=== PATIENT | female | born 1930 | race Caucasian/White ===

== ENCOUNTER 2017-07-26 17:30 | Inpatient (IN) | payer MEDICARE, OTHER ==
[2017-07-26] MEDS ORDERED: Ondansetron 4 MG/2 ML SDV IV PRN (19:58)
[2017-07-26] MEDS ORDERED: Morphine 2 MG/ML Syringe IVPUSH PRN (19:58)
[2017-07-26] MEDS ORDERED: Docusate Sodium 100 MG Cap PO PRN (19:58)
[2017-07-26] MEDS ORDERED: Ondansetron 4 MG Tab.DIS PO PRN (19:58)
[2017-07-26] MEDS ORDERED: Non-Formulary Medication 1 Each (Polyvinyl Alcohol/Povidone [Refresh] 1 DROP) EYEBOTH PRN (20:15)
[2017-07-26] MEDS ORDERED: Albuterol 8 GM Inhaler INH PRN (20:15)
[2017-07-26] MEDS: Sodium Chloride 0.9% 1,000 ML IV SCH (21:03)
[2017-07-26] MEDS: Temazepam 7.5 MG Cap PO SCH (21:08)
[2017-07-26] MEDS ORDERED: Latanoprost 0.005% Ophth Soln 2.5 ML Bottle EYEBOTH SCH (22:30)
[2017-07-27] MEDS ORDERED: Polyvinyl Alcohol 1.4% Ophth Soln 15 ML Bottle EYEBOTH PRN ×2 (01:07→07:26)
[2017-07-27] MEDS: Sodium Chloride 0.9% 1,000 ML IV SCH ×2 (06:36→16:28)
[2017-07-27] MEDS ORDERED: Levothyroxine 75 MCG Tab PO SCH (07:30)
[2017-07-27] MEDS: Calcium Carbonate/Vitamin D3 1250 MG-200 Unit Tab PO SCH ×2 (07:54→17:40)
[2017-07-27] MEDS: Loratadine 10 MG Tab PO SCH (07:54)
[2017-07-27] MEDS: Fluticasone Propionate Nasal Spray 16 GM Bottle NASBOTH SCH (08:00)
[2017-07-27] MEDS: Raloxifene 60 MG Tab PO SCH (08:00)
[2017-07-27] MEDS: Cyanocobalamin (Vitamin B12) 500 MCG Tab PO SCH (08:02)
[2017-07-27] MEDS: Multivitamin Tab PO SCH (08:03)
[2017-07-27] MEDS: ALPRAZolam 0.5 MG Tab PO SCH (08:10)
[2017-07-27] MEDS ORDERED: Atenolol 25 MG Tab PO SCH (09:00)
--- NOTE | 2017-07-27 09:32 | CT ---
INDICATION: Falling - fell twice this week, 6 stitches a couple of days ago mid forehead, loss of consciousness. CT HEAD WITHOUT CONTRAST: Serial contiguous 2.5 and 5-mm sections were obtained through the brain without contrast 07/26/2017. No comparisons were available. Total Exam DLP = 1691.62 mGy-cm. The cranium appears to be intact. The mastoid air cells appear to be fairly well aerated. Thickening of the lining of the right maxillary antrum is noted. Evidence of previous sinus surgery is noted with absence of medial calix of the maxillary antra. There also is opacification of the right sphenoidal air cell, which may be on the basis of a large retention cyst. Sinusitis is difficult to entirely exclude with this appearance, but should be correlated clinically. No shift of midline structures was identified. The ventricles and sulci are prominent, compatible with generalized atrophy. The cortical atrophy appears to be somewhat more severe in the frontotemporal areas. There is some calcification in the area of the marly - bleeding is felt to be less likely with this appearance. This should be correlated clinically. No edema is noted in this area to strongly suggest hemorrhage. Findings should be correlated clinically. MRI may be worthwhile to further evaluate this area, as felt to be clinically necessary. There is extensive decreased density in the white matter, compatible with moderately severe microvascular disease, although other cause of leukoencephalopathy, such as anoxic encephalopathy, cannot be excluded. No other definite abnormal areas of density were identified. No hematoma was seen. IMPRESSION: 1. No definite acute intracranial abnormality. There is what appears to be some calcification in the marly. MRI may be worthwhile to further evaluate that area, as a minimal acute hemorrhage in that area is difficult to entirely exclude. 2. Generalized atrophy with cortical atrophy more severe frontally and to some extent temporally. 3. Arterial calcifications with internal carotid and vertebral artery calcifications noted. 4. Moderately severe white matter changes compatible with microvascular disease , although other cause of leukoencephalopathy cannot be excluded. 5. Post-surgical changes at the maxillary sinuses with thickening of the lining of the right maxillary antrum and opacification of the right sphenoidal air cells also noted - correlate clinically. Report was called to Dr. Luz at 1910 hours, 07/26/2017. [facility]
[2017-07-27] MEDS: Enoxaparin 60 MG/0.6 ML Syringe SUBCUT SCH ×2 (12:24→23:33)
--- NOTE | 2017-07-27 13:03 | PCM.HP ---
H&P History of Present Illness - General Date of Service: 07/27/17 Admit Problem/Dx: Admission Diagnosis/Problem Admission Diagnosis/Problem NSTEMI, initial episode of care Source of Information: Patient, Old Records - History of Present Illness Initial Comments - Free Text/Narative: Pleasant 87-year-old female presented to the emergency department after having had a syncopal episode while upright washing window. She never had chest pain or headache or sudden onset blurred vision. Just 1 minute she was up at next minute she was down. She did sustain a head laceration a day or 2 prior for a fall. She denied having any palpitations neck or jaw pain, shoulder pain epigastric pain nausea vomiting acute shortness of breath or dyspnea peripheral weakness numbness or tingling. She denied any injury that she had sustained. There was no loss of bowel or bladder function. She was alert and oriented without focal deficits that she perceived. recent gastrointestinal illness. Denies any new medication changes either prescribed or [id number]. Denies any recent ill contacts. She denied any perceived fevers, chills, cough, congestion or wheezing. She is a known long- time smoker down to 4 cigarettes daily. She has coronary artery disease with coronary stenting as well as documented prior myocardial infarction. pump status at this time is known. monae arms Pain Score (Numeric/FACES): 4 Pain Pain Score (Numeric/FACES): 0 - Related Data Allergies/Adverse Reactions: Allergies Allergy/AdvReac Type Severity Reaction Status Date / Time No Known Allergies Allergy Verified 07/26/17 20:20 Home Medications: Home Meds ALPRAZolam [Xanax] 0.5 mg PO 2100 07/26/17 [History] Albuterol [Proventil HFA] 2 puff PO ASDIRECTED PRN 07/26/17 [History] Aspirin 81 mg PO 17 07/26/17 [History] Atenolol 25 mg PO 08 07/26/17 [History] Calcium Carbonate/Vitamin D3 [Calcium 600 + Vit D 400 Softgl] 1 tab PO 08, [History] Cyanocobalamin (Vitamin B12) [Vitamin B12] 500 mcg PO 08 07/26/17 [History] Fluticasone Propionate [Flovent] 50 mcg NASBOTH DAILY 07/26/17 [History] Latanoprost [Xalatan 0.005% Ophth Soln] 1 drop EYEBOTH DAILY 07/26/17 [History] Levothyroxine 75 mcg PO 07/26/17 [History] Loratadine 10 mg PO 07/26/17 [History] Multivitamin [Multivitamins] 1 tab PO 07/26/17 [History] Raloxifene HCl 60 mg PO 07/26/17 [History] Polyvinyl Alcohol/Povidone/Pf [Refresh Classic Eye Drops] 1 drop EYEBOTH ASDIRECTED PRN 07/27/17 [History] Past Medical History HEENT History: Reports: Glaucoma, Impaired Vision Other HEENT History: dry eyes Cardiovascular History: Reports: Angina, CAD, [place], Syncope Other Cardiovascular History: ? stent Respiratory History: Reports: COPD, Pneumonia, Recurrent, SOB Psychiatric History: Reports: Addiction, Anxiety, Dementia, Depression Endocrine/Metabolic History: Reports: Hypothyroidism - Past Surgical History Cardiovascular Surgical History: Reports: Coronary Artery Stent, Percutaneous Transluminal Angioplasty Musculoskeletal Surgical History: Reports: Other (See Below) Other Musculoskeletal Surgeries/Procedures:: Left foot surgery Social & Family History - Family History Family Medical History: Unobtainable - Tobacco Use Smoking Status *Q: Current Every Day Smoker Years of Tobacco use: 68 Packs/Tins Daily: 4 Used Tobacco, but Quit: No Second Hand Smoke Exposure: No - Caffeine Use Caffeine Use: Reports: Coffee Other Caffeine Use: Pot of coffe per day - Alcohol Use Days Per Week of Alcohol Use: 0 - Recreational Drug Use Recreational Drug Use: No H&P Review of Systems - Review of Systems: Review Of Systems: ROS reveals no pertinent complaints other than HPI. Exam - Exam Exam: See Below - Vital Signs Vital Signs: Last Vital Signs Temp 97.6 F 07/27/17 10:39 Pulse 69 07/27/17 10:39 Resp 18 07/27/17 10:39 BP 121/72 07/27/17 10:39 Pulse Ox 93 L 07/27/17 10:39 Weight: 52.934 kg - Exam Quality Assessment: Supplemental Oxygen General: Alert, Oriented, Cooperative, Other (eating without choking/coughing or fatigue.) Neck: Supple, Trachea Midline. No: Thyromegaly Lungs: Normal Respiratory Effort, Crackles (bilateral bases coarse likely chronic) Cardiovascular: Regular Rate, Regular Rhythm, Normal S1, Normal S2. No: Systolic Murmur, Rubs GI/Abdominal Exam: Normal Bowel Sounds, Soft, Non-Tender Back Exam: Normal Inspection Extremities: No: Non-Tender, Pedal Edema Skin: Warm, Dry, Wound (forehead lac from prior injury. routine healing. ) Neurological: Strength Equal Bilateral, Normal Speech, Normal Tone. No: Focal Deficit Neuro Extensive - Mental Status: Alert, Oriented x3, Normal Mood/Affect, Normal Cognition Neuro Extensive - Motor, Sensory, Reflexes: CN II-XII Intact Psychiatric: Normal Mood - Patient Data Lab Results Last 24 hrs: Laboratory Tests 07/26/17 07/26/17 07/26/17 Range/Units 18:35 18:35 18:35 WBC 10.6 (4.5-12.0) X10-3/uL RBC 4.89 (3.23-5.20) x10(6)uL Hgb 15.5 (11.5-15.5) g/dL Hct 46.7 (30.0-51.3) % MCV 95.5 (80-96) fL MCH 31.7 (27.7-33.6) pg MCHC 33.2 (32.2-35.4) g/dL RDW 14.0 (11.5-15.5) % Plt Count 153 (125-369) X10(3)uL MPV 7.8 (7.4-10.4) fL Neut % (Auto) 67.0 (46-82) % Lymph % (Auto) 22.6 (13-37) % [place] % (Auto) 7.9 (4-12) % Eos % (Auto) 2 (1.0-5.0) % Baso % (Auto) 1 (0-2) % Neut # (Auto) 7.1 (1.6-8.3) # Lymph # (Auto) 2.4 (0.6-5.0) # [place] # (Auto) 0.8 (0.0-1.3) # Eos # (Auto) 0.2 (0.0-0.8) # Baso # (Auto) 0.1 (0.0-0.2) # PT (8.7-11.1) INR (0.89-1.13) APTT (24.4-33.2) SECONDS Sodium 141 (135-145) mmol/L Potassium 4.1 (3.5-5.3) mmol/L Chloride 107 (100-110) mmol/L Carbon Dioxide 26 (21-32) mmol/L BUN 24 H (7-18) mg/dL Creatinine 1.2 H (0.55-1.02) mg/dL Est Cr Clr Drug Dosing 23.28 mL/min Estimated GFR (MDRD) 42 L (>60) BUN/Creatinine Ratio 20.0 (9-20) Glucose 132 H (80-116) mg/dL Calcium 9.4 (8.6-10.2) mg/dL Magnesium (1.8-2.5) mg/dL Total Bilirubin 0.4 (0.1-1.3) mg/dL AST 27 H (5-25) IU/L ALT 22 (12-36) U/L Alkaline Phosphatase 63 (56-112) IU/L Troponin I 0.436 H* (<0.017-0.056) ng/mL Total Protein 7.3 (6.0-8.0) g/dL Albumin 2.7 L (3.2-4.6) g/dL Globulin 4.6 g/dL Albumin/Globulin Ratio 0.6 07/26/17/ Range/Units 18:35 06:15 WBC (4.5-12.0) X10-3/uL RBC (3.23-5.20) x10(6)uL Hgb (11.5-15.5) g/dL Hct (30.0-51.3) % MCV (80-96) fL MCH (27.7-33.6) pg MCHC (32.2-35.4) g/dL RDW (11.5-15.5) % Plt Count (125-369) X10(3)uL MPV (7.4-10.4) fL Neut % (Auto) (46-82) % Lymph % (Auto) (13-37) % [place] % (Auto) (4-12) % Eos % (Auto) (1.0-5.0) % Baso % (Auto) (0-2) % Neut # (Auto) (1.6-8.3) # Lymph # (Auto) (0.6-5.0) # [place] # (Auto) (0.0-1.3) # Eos # (Auto) (0.0-0.8) # Baso # (Auto) (0.0-0.2) # PT (8.7-11.1) INR (0.89-1.13) APTT (24.4-33.2) SECONDS Sodium 142 (135-145) mmol/L Potassium 4.2 (3.5-5.3) mmol/L Chloride 111 H (100-110) mmol/L Carbon Dioxide 24 (21-32) mmol/L BUN 22 H (7-18) mg/dL Creatinine 1.0 (0.55-1.02) mg/dL Est Cr Clr Drug Dosing 32.50 mL/min Estimated GFR (MDRD) 52 L (>60) BUN/Creatinine Ratio 22.0 H (9-20) Glucose 93 (80-116) mg/dL Calcium 8.3 L (8.6-10.2) mg/dL Magnesium 1.9 (1.8-2.5) mg/dL Total Bilirubin 0.5 (0.1-1.3) mg/dL AST 26 H (5-25) IU/L ALT 19 D (12-36) U/L Alkaline Phosphatase 55 L (56-112) IU/L Troponin I 0.517 H* (<0.017-0.056) ng/mL Total Protein 6.2 (6.0-8.0) g/dL Albumin 2.3 L (3.2-4.6) g/dL Globulin 3.9 g/dL Albumin/Globulin Ratio 0.6 Result Diagrams: 07/27/17 11:15 07/27/17 06:15 EKG INTERPRETATION EKG Date: 07/26/17 Rhythm: NSR P-Wave: Present QRS: Normal ST-T: Normal QT: Normal Comparison: No Change *Q Meaningful Use (ADM) - VTE *Q VTE Criteria *Q: - Stroke *Q Stroke Criteria *Q: - AMI *Q AMI Criteria *Q: - Problem List (1) Non-STEMI (non-ST elevated myocardial infarction) SNOMED Code(s): 524354434 ICD Code: I21.4 - NON-ST ELEVATION (NSTEMI) MYOCARDIAL INFARCTION Status: Acute Priority: High Current Visit: Yes (2) Coronary artery disease SNOMED Code(s): 90971029 ICD Code: I25.10 - ATHSCL HEART DISEASE OF [place] CORONARY ARTERY W/O ANG PCTRS Status: Acute Current Visit: Yes Qualifiers: Coronary Disease-Associated Artery/Lesion type: [place] artery [place] vs. transplanted heart: [place] heart Associated angina: with unstable angina Qualified Code(s): I25.110 - Atherosclerotic heart disease of [place] coronary artery with unstable angina pectoris (3) Syncope and collapse SNOMED Code(s): 224445838 ICD Code: R55 - SYNCOPE AND COLLAPSE Status: Acute Priority: High Current Visit: Yes (4) COPD (chronic obstructive pulmonary disease) SNOMED Code(s): 03306791 ICD Code: J44.9 - CHRONIC OBSTRUCTIVE PULMONARY DISEASE, UNSPECIFIED Status : Chronic Current Visit: Yes Qualifiers: COPD type: chronic bronchitis (5) Tobacco use disorder, continuous SNOMED Code(s): 209831768 ICD Code: F17.209 - NICOTINE DEPENDENCE, UNSP, W UNSP NICOTINE-INDUCED DISORDERS Status: Chronic Current Visit: Yes (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 SNOMED Code(s): 337808640 ICD Code: F02.80 - DEMENTIA IN OTH DISEASES CLASSD ELSWHR W/O BEHAVRL DISTURB Status: Chronic Current Visit: Yes Qualifiers: Dementia behavioral disturbance: without behavioral disturbance Qualified Code(s): F02.80 - Dementia in other diseases classified elsewhere without behavioral disturbance (7) Palliative care status SNOMED Code(s): 779705854 ICD Code: Z51.5 - ENCOUNTER FOR PALLIATIVE CARE Status: Acute Current Visit: Yes Problem List Initiated/Reviewed/Updated: Yes Orders Last 24hrs: Active Orders 24 hr Category Date Time Status Vital Signs [RC] Q4H Care 07/26/17 20:06 Active Consult to Spiritual Care [CONS] Routine Cons 07/26/17 20:06 Active OT Evaluation and Treatment [CONS] Routine Cons 07/26/17 20:06 Active PT Evaluation and Treatment [CONS] Routine Cons 07/26/17 20:06 Active ALPRAZolam [Xanax] Med 07/27/17 08:00 Active 0.5 mg PO DAILY@0800 Albuterol [Ventolin HFA] Med 07/26/17 20:15 Active 0 gm INH ASDIRECTED PRN Aspirin Med 07/27/17 17:00 Active 81 mg PO DAILY@1700 Atenolol [Tenormin] Med 07/27/17 09:00 Active 25 mg PO DAILY Calcium Carbonate/Vitamin D3 [Calcium Carbonate/Vitamin Med 07/27/17 08:00 Active D 1250 MG-200 Unit] 1 tab PO BIDMEALS Cyanocobalamin (Vitamin B12) [Vitamin B12] Med 07/27/17 09:00 Active 500 mcg PO DAILY Docusate Sodium [Colace] Med 07/26/17 19:58 Active 100 mg PO BID PRN Enoxaparin [Lovenox] Med 07/27/17 12:15 Active 53 mg SUBCUT Q12H Fluticasone Propionate [Flonase] Med 07/27/17 09:00 Active 0 gm NASBOTH DAILY Latanoprost [Xalatan 0.005% Ophth Soln] Med 07/27/17 07:23 Active 0 ml EYEBOTH BEDTIME Levothyroxine Med 07/27/17 07:30 Active 75 mcg PO ACBREAKFAST Loratadine [Claritin] Med 07/27/17 08:00 Active 10 mg PO DAILY@0800 Morphine Med 07/26/17 19:58 Active 2 mg IVPUSH Q2H PRN Multivitamins [Tab-A-Blossom] Med 07/27/17 09:00 Active 1 tab PO DAILY Ondansetron [Zofran ODT] Med 07/26/17 19:58 Active 4 mg PO Q4H PRN Ondansetron [Zofran] Med 07/26/17 19:58 Active 4 mg IV Q4H PRN Polyvinyl Alcohol [LiquiTears 1.4% Ophth Soln] Med 07/27/17 07:26 Active 0 ml EYEBOTH QID PRN Raloxifene [Evista] Med 07/27/17 09:00 Active 60 mg PO DAILY Temazepam [Restoril] Med 07/26/17 21:00 Active 7.5 mg PO BEDTIME Resuscitation Status Routine Resus Stat 07/26/17 19:58 Ordered EKG 12 Lead [EK] AM Ther 07/27/17 05:11 Ordered Medication Orders Albuterol (Ventolin Hfa) 0 gm INH ASDIRECTED PRN PRN Reason: Wheezing Alprazolam (Xanax) 0.5 mg PO DAILY@0800 [facility] Last Admin: 07/27/17 08:10 Dose: 0.5 mg Artificial Tears (Liquitears 1.4% Ophth Soln) 0 ml EYEBOTH QID PRN PRN Reason: Dry Eyes Aspirin (Aspirin) 81 mg PO DAILY@1700 [facility] Atenolol (Tenormin) 25 mg PO DAILY [facility] Last Admin: 07/27/17 08:02 Dose: 25 mg Calcium Carbonate (Calcium Carbonate/Vitamin D 1250 Mg-200 Unit) 1 tab PO BIDMEALS [facility] Last Admin: 07/27/17 07:54 Dose: 1 tab Cyanocobalamin (Vitamin B12) 500 mcg PO DAILY [facility] Last Admin: 07/27/17 08:02 Dose: 500 mcg Docusate Sodium (Colace) 100 mg PO BID PRN PRN Reason: Constipation Last Admin: 07/26/17 21:12 Dose: 100 mg Enoxaparin Sodium (Lovenox) 53 mg SUBCUT Q12H [facility] Last Admin: 07/27/17 12:24 Dose: 53 mg Fluticasone Propionate (Flonase) 0 gm NASBOTH DAILY [facility] Last Admin: 07/27/17 08:00 Dose: 1 spray Sodium Chloride (Normal Saline) 1,000 mls @ 100 mls/hr IV ASDIRECTED [facility] Last Admin: 07/27/17 06:36 Dose: 100 mls/hr Infusion: 07/27/17 06:36 Dose: 100 mls/hr Admin: 07/26/17 21:03 Dose: 100 mls/hr Latanoprost (Xalatan 0.005% Ophth Soln) 0 ml EYEBOTH BEDTIME [facility] Levothyroxine Sodium (Levothyroxine) 75 mcg PO ACBREAKFAST [facility] Last Admin: 07/27/17 07:53 Dose: 75 mcg Loratadine (Claritin) 10 mg PO DAILY@0800 [facility] Last Admin: 07/27/17 07:54 Dose: 10 mg Morphine Sulfate (Morphine) 2 mg IVPUSH Q2H PRN PRN Reason: Pain (severe 7-10) Multivitamins/Minerals/Vitamin C (Tab-A-Blossom) 1 tab PO DAILY [facility] Last Admin: 07/27/17 08:03 Dose: 1 tab Ondansetron HCl (Zofran Odt) 4 mg PO Q4H PRN PRN Reason: nausea, able to take PO Ondansetron HCl (Zofran) 4 mg IV Q4H PRN PRN Reason: Nausea/Vomiting Raloxifene HCl (Evista) 60 mg PO DAILY [facility] Last Admin: 07/27/17 08:00 Dose: 60 mg Temazepam (Restoril) 7.5 mg PO BEDTIME [facility] Last Admin: 07/26/17 21:08 Dose: 7.5 mg Assessment/Plan Comment:: Non-STEMI protocol instituted. She has received aspirin. I will treat her with therapeutic Lovenox 1 mg/kg subcutaneous twice a day 48 hours. Will continue on telemetry. She is on a nonselective beta rosendo so monitor to keep her pulse close to 60. We'll also get orthostatics. Gentle fluids. Daily weight. Oxygen to keep sats greater than 89%. Morphine intermittently and nitroglycerin sublingual for any chest pain or pressure. Serial troponins and EKGs anticipate stay 48-72 hours. All questions answered with her and her family at the bedside. She is currently a full code knowing however this is a very difficult time as the first 48 hours she has a higher risk for pump failure with extension of cardiac damage continues. will SLIV.
--- NOTE | 2017-07-27 15:12 | ER ---
DATE SEEN: 07/26/2017 TIME SEEN: The patient was seen at 1750 hours. /[id number] 2024 901 [address]/GILBERTO
[2017-07-27] MEDS: Aspirin 81 MG Tab.Chew PO SCH (16:24)
[2017-07-27] MEDS: Sodium Chloride 0.9% 10 ML Syringe FLUSH PRN (19:05)
[2017-07-27] MEDS: Latanoprost 0.005% Ophth Soln 2.5 ML Bottle EYEBOTH SCH (20:12)
[2017-07-27] MEDS: Temazepam 7.5 MG Cap PO SCH (21:40)
[2017-07-28] MEDS: Levothyroxine 75 MCG Tab PO SCH (06:05)
[2017-07-28] MEDS ORDERED: Nitroglycerin 0.4 MG Tab.SL SL PRN (08:41)
[2017-07-28] MEDS: Atenolol 25 MG Tab PO SCH (08:52)
[2017-07-28] MEDS: Calcium Carbonate/Vitamin D3 1250 MG-200 Unit Tab PO SCH ×2 (08:52→17:58)
[2017-07-28] MEDS: Multivitamin Tab PO SCH (08:52)
[2017-07-28] MEDS: Loratadine 10 MG Tab PO SCH (08:52)
[2017-07-28] MEDS: Cyanocobalamin (Vitamin B12) 500 MCG Tab PO SCH (08:52)
[2017-07-28] MEDS: Fluticasone Propionate Nasal Spray 16 GM Bottle NASBOTH SCH (08:53)
[2017-07-28] MEDS: Raloxifene 60 MG Tab PO SCH (08:53)
[2017-07-28] MEDS: ALPRAZolam 0.5 MG Tab PO SCH ×2 (08:54→09:47)
--- NOTE | 2017-07-28 09:22 | PCM.PN ---
- General Info Date of Service: 07/28/17 Subjective Update: Patient tells me she had some difficulty sleeping overnight. She did get a dose for temazepam is actually sleeping this morning. She remained on continuous telemetry and at one point noted that she bradycardia down into the 40s at one point 30s while lying down and resting. There were no ventricular escape rhythms no block remained in sinus rhythm with normal QRS. There was no resumption of this. O2 sat intermittently would drop into the 80s without oxygen therefore she was continued on 2 L via nasal cannula to keep sats in the low to mid 90s while awake 89 the 90s while sleeping. She tells me she's been tolerating her diet. Tells me she is feeling better with regards to strength and getting up to the bathroom. She does still have some intermittent cough and shortness of breath. But denies any chest pain, pressure, neck or jaw or shoulder pain. She's had no nausea or vomiting. No particular headache around her prior laceration. She denies vision changes. She's been afebrile. Denies any sweats or chills. She denies coolness numbness or tingling to the extremities. She denies abdominal pain or difficulty with chewing and swallowing. She is visited by family frequently. She has a daughter coming up from [place] today to see her. Nursing otherwise has no concerns. - Review of Systems Systems Review Comment:: For pertinent positives and negatives please review subjective above - Patient Data Vitals - Most Recent: Vital Signs - 24 hr 07/27/17 07/27/17 07/27/17 10:39 13:21 16:22 Temperature [ 97.6 F 97.6 F 98 F Oral] Pulse, Peripheral Pulse, Peripheral [ Left Brachial] Pulse, 69 73 66 Peripheral [ Left Pulse Oximetry] Respiratory 18 18 18 Rate Blood Pressure Blood Pressure 121/72 128/68 128/68 [Left Upper Arm ] O2 Sat by Pulse 93 L 93 L 93 L Oximetry 07/27/17 07/27/17 07/27/17 18:59 20:00 23:44 Temperature [ 97.7 F 98.3 F Oral] Pulse, Peripheral Pulse, 55 L Peripheral [ Left Brachial] Pulse, 62 65 Peripheral [ Left Pulse Oximetry] Respiratory 18 18 18 Rate Blood Pressure Blood Pressure 118/62 114/58 L 115/65 [Left Upper Arm ] O2 Sat by Pulse 93 L 94 L 95 Oximetry 07/28/17 07/28/17 07/28/17 04:00 07:58 08:52 Temperature [ 97.7 F 98.7 F Oral] Pulse, 81 Peripheral Pulse, 81 Peripheral [ Left Brachial] Pulse, 59 L Peripheral [ Left Pulse Oximetry] Respiratory 19 18 Rate Blood Pressure 150/78 H Blood Pressure 132/73 150/78 H [Left Upper Arm ] O2 Sat by Pulse 96 94 L Oximetry Weight - Most Recent: 52.934 kg I&O - Last 24 Hours: Vital Signs Temp 98.7 F 07/28/17 07:58 Pulse 81 07/28/17 08:52 Resp 18 07/28/17 07:58 BP 150/78 H 07/28/17 08:52 Pulse Ox 94 L 07/28/17 07:58 Intake & Output 07/27/17 07/28/17 22:59 06:59 Intake Total 1534 100 Output Total 450 275 Balance 1084 -175 Intake: Intake, Oral Amount 850 100 Oral Fluids 850 100 Intake, IV Amount 684 Normal Saline 1,000 ML @ 684 100 mls/hr IV ASDIRECTED [facility] Rx#:[id number] Output: Output, Urine Amount 450 275 Other: Dinner Percent Consumed 100 Total, Intake Amount 400 100 Number of Bowel Movements 1 Number of Voids 1 1 Total, Output Amount 200 275 Yesterday's weight 52.934 kg Today's weight: Shows no change even though she is up roughly 3 L. Question accuracy. Imaging Impressions - Last 24 Hours: Chest x-ray pending this morning Lab Results Last 24 Hours: Laboratory Results - last 24 hr 07/26/17 07/27/17 07/27/17 Range/Units 20:35 06:35 11:15 WBC (4.5-12.0) X10-3/uL RBC (3.23-5.20) x10(6)uL Hgb (11.5-15.5) g/dL Hct (30.0-51.3) % MCV (80-96) fL MCH (27.7-33.6) pg MCHC (32.2-35.4) g/dL RDW (11.5-15.5) % Plt Count (125-369) X10(3)uL PT 11.5 H (8.7-11.1) INR 1.14 H (0.89-1.13) APTT 25.5 (24.4-33.2) SECONDS Sodium (135-145) mmol/L Potassium (3.5-5.3) mmol/L Chloride (100-110) mmol/L Carbon Dioxide (21-32) mmol/L BUN (7-18) mg/dL Creatinine (0.55-1.02) mg/dL Est Cr Clr Drug Dosing mL/min Estimated GFR (MDRD) (>60) BUN/Creatinine Ratio (9-20) Glucose (80-116) mg/dL Calcium (8.6-10.2) mg/dL Troponin I 0.517 H* 0.369 H* (<0.017-0.056) ng/mL NT-Pro-B Natriuret Pep (<=450) pg/mL 07/27/17 07/28/17 07/28/17 Range/Units 11:15 06:15 06:15 WBC 11.0 (4.5-12.0) X10-3/uL RBC 4.21 (3.23-5.20) x10(6)uL Hgb 13.6 (11.5-15.5) g/dL Hct 40.5 (30.0-51.3) % MCV 96.1 H (80-96) fL MCH 32.3 (27.7-33.6) pg MCHC 33.7 (32.2-35.4) g/dL RDW 13.7 (11.5-15.5) % Plt Count 122 L (125-369) X10(3)uL PT (8.7-11.1) INR (0.89-1.13) APTT (24.4-33.2) SECONDS Sodium 138 (135-145) mmol/L Potassium 4.3 (3.5-5.3) mmol/L Chloride 107 (100-110) mmol/L Carbon Dioxide 23 (21-32) mmol/L BUN 18 (7-18) mg/dL Creatinine 0.9 (0.55-1.02) mg/dL Est Cr Clr Drug Dosing 36.11 mL/min Estimated GFR (MDRD) 59 L (>60) BUN/Creatinine Ratio 20.0 (9-20) Glucose 84 (80-116) mg/dL Calcium 8.5 L (8.6-10.2) mg/dL Troponin I (<0.017-0.056) ng/mL NT-Pro-B Natriuret Pep 2366 H* (<=450) pg/mL 07/28/17 Range/Units 06:15 WBC 10.1 (4.5-12.0) X10-3/uL RBC 4.23 (3.23-5.20) x10(6)uL Hgb 13.7 (11.5-15.5) g/dL Hct 41.2 (30.0-51.3) % MCV 97.4 H (80-96) fL MCH 32.4 (27.7-33.6) pg MCHC 33.3 (32.2-35.4) g/dL RDW 14.0 (11.5-15.5) % Plt Count 127 (125-369) X10(3)uL PT (8.7-11.1) INR (0.89-1.13) APTT (24.4-33.2) SECONDS Sodium (135-145) mmol/L Potassium (3.5-5.3) mmol/L Chloride (100-110) mmol/L Carbon Dioxide (21-32) mmol/L BUN (7-18) mg/dL Creatinine (0.55-1.02) mg/dL Est Cr Clr Drug Dosing mL/min Estimated GFR (MDRD) (>60) BUN/Creatinine Ratio (9-20) Glucose (80-116) mg/dL Calcium (8.6-10.2) mg/dL Troponin I (<0.017-0.056) ng/mL NT-Pro-B Natriuret Pep (<=450) pg/mL Med Orders - Current: Current Medications Albuterol (Ventolin Hfa) 0 gm INH ASDIRECTED PRN PRN Reason: Wheezing Alprazolam (Xanax) 0.5 mg PO DAILY@0800 [facility] Last Admin: 07/28/17 08:54 Dose: 0.5 mg Artificial Tears (Liquitears 1.4% Ophth Soln) 0 ml EYEBOTH QID PRN PRN Reason: Dry Eyes Aspirin (Aspirin) 81 mg PO DAILY@1700 [facility] Last Admin: 07/27/17 16:24 Dose: 81 mg Atenolol (Tenormin) 12.5 mg PO DAILY [facility] Last Admin: 07/28/17 08:52 Dose: 12.5 mg Calcium Carbonate (Calcium Carbonate/Vitamin D 1250 Mg-200 Unit) 1 tab PO BIDMEALS [facility] Last Admin: 07/28/17 08:52 Dose: 1 tab Cyanocobalamin (Vitamin B12) 500 mcg PO DAILY [facility] Last Admin: 07/28/17 08:52 Dose: 500 mcg Docusate Sodium (Colace) 100 mg PO BID PRN PRN Reason: Constipation Last Admin: 07/26/17 21:12 Dose: 100 mg Enoxaparin Sodium (Lovenox) 53 mg SUBCUT Q12H [facility] Last Admin: 07/27/17 23:33 Dose: 53 mg Fluticasone Propionate (Flonase) 0 gm NASBOTH DAILY [facility] Last Admin: 07/28/17 08:53 Dose: 1 spray Furosemide (Lasix) 20 mg IVPUSH Q8H [facility] Stop: 07/29/17 00:46 Latanoprost (Xalatan 0.005% [facility] Sol) 0 ml EYEBOTH BEDTIME [facility] Last Admin: 07/27/17 20:12 Dose: 1 drop Levothyroxine Sodium (Levothyroxine) 75 mcg PO DAILY@0600 [facility] Last Admin: 07/28/17 06:05 Dose: 75 mcg Loratadine (Claritin) 10 mg PO DAILY@0800 [facility] Last Admin: 07/28/17 08:52 Dose: 10 mg Morphine Sulfate (Morphine) 2 mg IVPUSH Q2H PRN PRN Reason: Pain (severe 7-10) Multivitamins/Minerals/Vitamin C (Tab-A-Blossom) 1 tab PO DAILY [facility] Last Admin: 07/28/17 08:52 Dose: 1 tab Nitroglycerin (Nitrostat) 0.4 mg SL Q5M PRN PRN Reason: Chest Pain Ondansetron HCl (Zofran Odt) 4 mg PO Q4H PRN PRN Reason: nausea, able to take PO Ondansetron HCl (Zofran) 4 mg IV Q4H PRN PRN Reason: Nausea/Vomiting Raloxifene HCl (Evista) 60 mg PO DAILY [facility] Last Admin: 07/28/17 08:53 Dose: 60 mg Sodium Chloride (Saline Flush) 10 ml FLUSH ASDIRECTED PRN PRN Reason: Keep Vein Open Last Admin: 07/27/17 19:05 Dose: 10 ml Temazepam (Restoril) 7.5 mg PO BEDTIME [facility] Last Admin: 07/27/17 21:40 Dose: 7.5 mg Discontinued Medications Artificial Tears (Liquitears 1.4% Ophth Soln) 0 ml EYEBOTH QID PRN PRN Reason: Dry Eyes Atenolol (Tenormin) 25 mg PO DAILY [facility] Last Admin: 07/27/17 08:02 Dose: 25 mg Sodium Chloride (Normal Saline) 1,000 mls @ 100 mls/hr IV ASDIRECTED [facility] Last Admin: 07/27/17 16:28 Dose: 100 mls/hr Latanoprost (Xalatan 0.005% Ophth Soln) 0 ml EYEBOTH BEDTIME [facility] Last Admin: 07/26/17 22:48 Dose: Not Given Levothyroxine Sodium (Levothyroxine) 75 mcg PO ACBREAKFAST [facility] Last Admin: 07/27/17 07:53 Dose: 75 mcg Non-Formulary Medication (Polyvinyl Alcohol/Povidone [Refresh]) 1 drop EYEBOTH ASDIRECTED PRN PRN Reason: Dry Eyes - Exam Physical Findings Comments:: Quality Assessment: Supplemental Oxygen General: Alert, Oriented, Cooperative, lying quietly in bed without evidence of respiratory distress. Raccoon eyes now more prominent from prior fall. Neck: Supple, Trachea Midline. No: Thyromegaly Lungs: Normal Respiratory Effort, Crackles (bilateral bases coarse likely chronic) Cardiovascular: Regular Rate, Regular Rhythm, Normal S1, Normal S2. No: Systolic Murmur, Rubs, no audible carotid bruits with bilateral pulses palpated. GI/Abdominal Exam: Normal Bowel Sounds, Soft, Non-Tender Back Exam: Normal Inspection Extremities: No: Non-Tender, Pedal Edema Skin: Warm, Dry, Wound (forehead lac from prior injury. routine healing. also bruising to the right inner knee) Neurological: Strength Equal Bilateral, Normal Speech, Normal Tone. No: Focal Deficit Neuro Extensive - Mental Status: Alert, Oriented x3, Normal Mood/Affect, Normal Cognition Neuro Extensive - Motor, Sensory, Reflexes: CN II-XII Intact - Problem List & Annotations (1) Non-STEMI (non-ST elevated myocardial infarction) SNOMED Code(s): 957700065 Code(s): I21.4 - NON-ST ELEVATION (NSTEMI) MYOCARDIAL INFARCTION Status: Acute Priority: High Current Visit: Yes (2) Coronary artery disease SNOMED Code(s): 82518864 Code(s): I25.10 - ATHSCL HEART DISEASE OF [place] CORONARY ARTERY W/O ANG PCTRS Status: Acute Current Visit: Yes Qualifiers: Coronary Disease-Associated Artery/Lesion type: [place] artery [place] vs. transplanted heart: [place] heart Associated angina: with unstable angina Qualified Code(s): I25.110 - Atherosclerotic heart disease of [place] coronary artery with unstable angina pectoris (3) Syncope and collapse SNOMED Code(s): 167516947 Code(s): R55 - SYNCOPE AND COLLAPSE Status: Acute Priority: High Current Visit: Yes (4) COPD (chronic obstructive pulmonary disease) SNOMED Code(s): 69053007 Code(s): J44.9 - CHRONIC OBSTRUCTIVE PULMONARY DISEASE, UNSPECIFIED Status : Chronic Current Visit: Yes Qualifiers: COPD type: chronic bronchitis (5) Tobacco use disorder, continuous SNOMED Code(s): 677917166 Code(s): F17.209 - NICOTINE DEPENDENCE, UNSP, W UNSP NICOTINE-INDUCED DISORDERS Status: Chronic Current Visit: Yes (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 SNOMED Code(s): 087226397 Code(s): F02.80 - DEMENTIA IN OTH DISEASES CLASSD ELSWHR W/O BEHAVRL DISTURB Status: Chronic Current Visit: Yes Qualifiers: Dementia behavioral disturbance: without behavioral disturbance Qualified Code(s): F02.80 - Dementia in other diseases classified elsewhere without behavioral disturbance (7) Palliative care status SNOMED Code(s): 975963540 Code(s): Z51.5 - ENCOUNTER FOR PALLIATIVE CARE Status: Acute Current Visit: Yes (8) Hypothyroidism SNOMED Code(s): 47395350 Code(s): E03.9 - HYPOTHYROIDISM, UNSPECIFIED Status: Chronic Current Visit: Yes Qualifiers: Hypothyroidism type: unspecified Qualified Code(s): E03.9 - Hypothyroidism , unspecified (9) Anxiety disorder SNOMED Code(s): 682122604 Code(s): F41.9 - ANXIETY DISORDER, UNSPECIFIED Status: Chronic Current Visit: Yes Qualifiers: Anxiety disorder type: generalized anxiety disorder Qualified Code(s): F41.1 - Generalized anxiety disorder - Problem List Review Problem List Initiated/Reviewed/Updated: Yes - My Orders Last 24 Hours: My Active Orders 07/27/17 12:15 Enoxaparin [Lovenox] 53 mg SUBCUT Q12H 07/27/17 13:00 Transfer Patient (Change bed) [ADT] Routine 07/27/17 18:05 Sodium Chloride 0.9% [Saline Flush] 10 ml FLUSH ASDIRECTED PRN 07/28/17 08:25 Height and Weight [RC] ONETIME Intake and Output Strict [RC] Q2H Chest 2V [CR] Routine TROPONIN I [CHEM] Routine 07/28/17 08:35 RT Evaluate for Home Oxygen [RC] Click to Edit Supplemental Oxygen Nasal Cannula 2 lpm 07/28/17 08:38 Notify Provider Intake and Out [RC] ASDIRECTED 07/28/17 08:41 RT Incentive Spirometry [RC] Q2HWA Respiratory Care Assess and Treatment [CONS] Routine Nitroglycerin [Nitrostat] 0.4 mg SL Q5M PRN 07/28/17 08:42 Cardiac Education [RC] Click to Edit Communication Order [RC] ASDIRECTED CHF Questionnaire [COMM] Routine 07/28/17 08:45 Furosemide [Lasix] 20 mg IVPUSH Q8H 07/28/17 08:53 Ambulate [RC] ASDIRECTED May Shower [RC] ASDIRECTED Up With Assistance [RC] ASDIRECTED 07/28/17 08:55 Notify Provider Vital Signs [RC] ASDIRECTED 07/28/17 09:00 Atenolol [Tenormin] 12.5 mg PO DAILY 07/28/17 09:13 TSH ULTRASENSITIVE [CHEM] Routine 07/28/17 10:00 Orthostatic Vital Signs [RC] 1000 07/28/17 Breakfast 2 Gram Sodium Diet [DIET] Heart Healthy Diet [DIET] 07/28/17 Dinner Nothing per Oral After Midnight Diet [DIET] 07/29/17 05:11 BASIC METABOLIC PANEL,BMP [CHEM] AM LIPID PANEL [CHEM] AM PRO B-TYPE NATRIUR PEPT,BNPPRO [CHEM] Routine 07/29/17 Breakfast Heart Healthy Diet [DIET] 07/30/17 05:11 BASIC METABOLIC PANEL,BMP [CHEM] AM 07/30/17 08:00 Echo Comp wo Cont [US] Routine - Assessment Assessment:: please see above. - Plan Plan:: Non-STEMI protocol instituted. She has received aspirin. Continue therapeutic Lovenox 1 mg/kg subcutaneous twice a day to complete 48 hour course. Will continue on telemetry. She is on a nonselective beta rosendo so monitor to keep her pulse close to 60. However with last night's event I did cut her atenolol down from 25 mg daily to 12.5 mg daily. Will monitor pulse and blood pressure with these changes. She's quite positive fluid balance started diuresis that the local ahead and give Lasix IV 20 mg a couple of time to see if we can't pull some extra fluid off. She does have slight rales but nothing write home about. I did saline lock her IV last night. We'll also get orthostatics at some point, they are not documented. Daily weight. Oxygen to keep sats greater than 89%. Morphine intermittently and nitroglycerin sublingual for any chest pain or pressure. Serial troponins continue to trend down. Anticipate stay 48- 72 hours. She would like to get up and more around more today. All questions answered with her and her family at the bedside.
[2017-07-28] MEDS: Furosemide 20 MG/2 ML VIAL IVPUSH SCH ×2 (09:46→16:00)
[2017-07-28] MEDS: Enoxaparin 60 MG/0.6 ML Syringe SUBCUT SCH (13:00)
[2017-07-28] MEDS: Aspirin 81 MG Tab.Chew PO SCH (16:00)
[2017-07-28] MEDS: Latanoprost 0.005% Ophth Soln 2.5 ML Bottle EYEBOTH SCH (20:42)
[2017-07-28] MEDS: Temazepam 7.5 MG Cap PO SCH (21:44)
[2017-07-29] MEDS: Enoxaparin 60 MG/0.6 ML Syringe SUBCUT SCH ×2 (00:29→14:42)
[2017-07-29] MEDS: Furosemide 20 MG/2 ML VIAL IVPUSH SCH (00:30)
[2017-07-29] MEDS: Sodium Chloride 0.9% 10 ML Syringe FLUSH PRN (00:31)
[2017-07-29] MEDS: Levothyroxine 75 MCG Tab PO SCH (06:06)
[2017-07-29] MEDS: Raloxifene 60 MG Tab PO SCH (08:23)
[2017-07-29] MEDS: Loratadine 10 MG Tab PO SCH (08:23)
[2017-07-29] MEDS: Cyanocobalamin (Vitamin B12) 500 MCG Tab PO SCH (08:23)
[2017-07-29] MEDS: Atenolol 25 MG Tab PO SCH (08:23)
[2017-07-29] MEDS: Multivitamin Tab PO SCH (08:23)
[2017-07-29] MEDS: Calcium Carbonate/Vitamin D3 1250 MG-200 Unit Tab PO SCH ×2 (08:24→18:27)
[2017-07-29] MEDS: ALPRAZolam 0.5 MG Tab PO SCH ×2 (08:24→21:08)
[2017-07-29] MEDS: Fluticasone Propionate Nasal Spray 16 GM Bottle NASBOTH SCH (08:24)
--- NOTE | 2017-07-29 09:29 | PCM.DCSUM1 ---
Discharge Summary - Discharge Data Discharge Disposition: DC/Tfer to SNF 03 Condition: Fair - Discharge Diagnosis/Problem(s) (1) Non-STEMI (non-ST elevated myocardial infarction) SNOMED Code(s): 472927511 ICD Code: I21.4 - NON-ST ELEVATION (NSTEMI) MYOCARDIAL INFARCTION Status: Acute Priority: High Current Visit: Yes (2) Coronary artery disease SNOMED Code(s): 63817144 ICD Code: I25.10 - ATHSCL HEART DISEASE OF [place] CORONARY ARTERY W/O ANG PCTRS Status: Acute Current Visit: Yes Qualifiers: Coronary Disease-Associated Artery/Lesion type: [place] artery [place] vs. transplanted heart: [place] heart Associated angina: with unstable angina Qualified Code(s): I25.110 - Atherosclerotic heart disease of [place] coronary artery with unstable angina pectoris (3) Syncope and collapse SNOMED Code(s): 370385154 ICD Code: R55 - SYNCOPE AND COLLAPSE Status: Acute Priority: High Current Visit: Yes (4) COPD (chronic obstructive pulmonary disease) SNOMED Code(s): 49694136 ICD Code: J44.9 - CHRONIC OBSTRUCTIVE PULMONARY DISEASE, UNSPECIFIED Status : Chronic Current Visit: Yes Qualifiers: COPD type: chronic bronchitis (5) Tobacco use disorder, continuous SNOMED Code(s): 937013578 ICD Code: F17.209 - NICOTINE DEPENDENCE, UNSP, W UNSP NICOTINE-INDUCED DISORDERS Status: Chronic Current Visit: Yes (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 SNOMED Code(s): 199538373 ICD Code: F02.80 - DEMENTIA IN OTH DISEASES CLASSD ELSWHR W/O BEHAVRL DISTURB Status: Chronic Current Visit: Yes Qualifiers: Dementia behavioral disturbance: without behavioral disturbance Qualified Code(s): F02.80 - Dementia in other diseases classified elsewhere without behavioral disturbance (7) Palliative care status SNOMED Code(s): 411317510 ICD Code: Z51.5 - ENCOUNTER FOR PALLIATIVE CARE Status: Acute Current Visit: Yes (8) Hypothyroidism SNOMED Code(s): 53866461 ICD Code: E03.9 - HYPOTHYROIDISM, UNSPECIFIED Status: Chronic Current Visit: Yes Qualifiers: Hypothyroidism type: unspecified Qualified Code(s): E03.9 - Hypothyroidism , unspecified (9) Anxiety disorder SNOMED Code(s): 349480353 ICD Code: F41.9 - ANXIETY DISORDER, UNSPECIFIED Status: Chronic Current Visit: Yes Qualifiers: Anxiety disorder type: generalized anxiety disorder Qualified Code(s): F41.1 - Generalized anxiety disorder (10) Orthostatic hypotension SNOMED Code(s): 40802818 ICD Code: I95.1 - ORTHOSTATIC HYPOTENSION Status: Acute Current Visit: Yes (11) Pulmonary edema cardiac cause SNOMED Code(s): 29619873 ICD Code: I50.1 - LEFT VENTRICULAR FAILURE, UNSPECIFIED Status: Acute Current Visit: Yes Onset Date: 07/28/17 (12) Bradycardia with 31-40 beats per minute SNOMED Code(s): 17197279 ICD Code: R00.1 - BRADYCARDIA, UNSPECIFIED Status: Acute Current Visit: Yes (13) CHF (congestive heart failure) SNOMED Code(s): 46686079 ICD Code: I50.9 - HEART FAILURE, UNSPECIFIED Status: Suspected Current Visit: Yes - Patient Summary/Data Consults: Consultations 07/26/17 20:06 Consult to Spiritual Care [CONS] Routine OT Evaluation and Treatment [CONS] Routine Please Evaluate and Treat. OT Reason for Consult: Other (Type Response) Pending Discharge: No Discharge Disposition: Inpatient Rehab This query below is only for informational purposes and is not editable. Admission Diagnosis/Problem: NSTEMI, initial episode of care PT Evaluation and Treatment [CONS] Routine Please Evaluate and Treat. PT Reason for Consult: Other (Type Response) Special Instructions: CARDIAC REHAB This query below is only for informational purposes and is not editable. Admission Diagnosis/Problem: NSTEMI, initial episode of care 07/28/17 08:41 Respiratory Care Assess and Treatment [CONS] Routine Comment: Physician Instructions: Recommended Follow-up Testing/Procedures: Echocardiogram - Discharge Plan Home Medications: Home Meds ALPRAZolam [Xanax] 0.5 mg PO 2100 07/26/17 [History] Albuterol [Proventil HFA] 2 puff PO ASDIRECTED PRN 07/26/17 [History] Aspirin 81 mg PO 07/26/17 [History] Atenolol 25 mg PO 08 07/26/17 [History] Calcium Carbonate/Vitamin D3 [Calcium 600 + Vit D 400 Softgl] 1 tab PO , [History] Cyanocobalamin (Vitamin B12) [Vitamin B12] 500 mcg PO 08 07/26/17 [History] Fluticasone Propionate [Flovent] 50 mcg NASBOTH DAILY 07/26/17 [History] Latanoprost [Xalatan 0.005% Ophth Soln] 1 drop EYEBOTH DAILY 07/26/17 [History] Levothyroxine 75 mcg PO 07 07/26/17 [History] Loratadine 10 mg PO 07/26/17 [History] Multivitamin [Multivitamins] 1 tab PO 07/26/17 [History] Raloxifene HCl 60 mg PO 07/26/17 [History] Polyvinyl Alcohol/Povidone/Pf [Refresh Classic Eye Drops] 1 drop EYEBOTH ASDIRECTED PRN 07/27/17 [History] Forms: ED Department Discharge Referrals: PCP,Unknown [Primary Care Provider] - - Patient Data Vitals - Most Recent: Last Vital Signs Temp 96.6 F 07/29/17 04:00 Pulse 61 07/29/17 08:23 Resp 19 07/29/17 04:00 BP 139/71 07/29/17 08:23 Pulse Ox 95 07/29/17 04:00 Orthostatic Blood Pressure [ 106/78 Standing] Orthostatic Blood Pressure [ 130/67 Sitting] Orthostatic Blood Pressure [ 124/64 Supine] Weight - Most Recent: 50.712 kg I&O - Last 24 hours: Intake & Output 07/28/17 07/29/17 07/29/17 22:59 06:59 14:59 Intake Total 250 125 Output Total 1500 1050 Balance -1250 -925 Lab Results - Last 24 hrs: Laboratory Results - last 24 hr 07/28/17 07/28/17 07/29/17 Range/Units 06:15 06:15 06:19 Sodium 138 (135-145) mmol/L Potassium 3.8 (3.5-5.3) mmol/L Chloride 100 D (100-110) mmol/L Carbon Dioxide 28 (21-32) mmol/L BUN 19 H (7-18) mg/dL Creatinine 1.1 H (0.55-1.02) mg/dL Est Cr Clr Drug Dosing 28.30 mL/min Estimated GFR (MDRD) 47 L (>60) BUN/Creatinine Ratio 17.3 (9-20) Glucose 88 (80-116) mg/dL Calcium 9.3 (8.6-10.2) mg/dL Troponin I 0.170 H* (<0.017-0.056) ng/mL NT-Pro-B Natriuret Pep (<=450) pg/mL Triglycerides 87 (15-150) mg/dL Cholesterol 171 (50-200) mg/dL LDL Cholesterol Direct 105 (60-130) mg/dL HDL Cholesterol 57 (40-75) mg/dL Cholesterol/HDL Ratio 3.0 (0-5) TSH, Ultra Sensitive 0.65 (0.36-3.74) IU/mL 07/29/17 Range/Units 06:19 Sodium (135-145) mmol/L Potassium (3.5-5.3) mmol/L Chloride (100-110) mmol/L Carbon Dioxide (21-32) mmol/L BUN (7-18) mg/dL Creatinine (0.55-1.02) mg/dL Est Cr Clr Drug Dosing mL/min Estimated GFR (MDRD) (>60) BUN/Creatinine Ratio (9-20) Glucose (80-116) mg/dL Calcium (8.6-10.2) mg/dL Troponin I (<0.017-0.056) ng/mL NT-Pro-B Natriuret Pep 2774 H* (<=450) pg/mL Triglycerides (15-150) mg/dL Cholesterol (50-200) mg/dL LDL Cholesterol Direct (60-130) mg/dL HDL Cholesterol (40-75) mg/dL Cholesterol/HDL Ratio (0-5) TSH, Ultra Sensitive (0.36-3.74) IU/mL Med Orders - Current: Current Medications Albuterol (Ventolin Hfa) 0 gm INH ASDIRECTED PRN PRN Reason: Wheezing Alprazolam (Xanax) 0.5 mg PO DAILY@0800 [facility] Last Admin: 07/29/17 08:24 Dose: 0.5 mg Artificial Tears (Liquitears 1.4% Ophth Soln) 0 ml EYEBOTH QID PRN PRN Reason: Dry Eyes Aspirin (Aspirin) 81 mg PO DAILY@1700 [facility] Last Admin: 07/28/17 16:00 Dose: 81 mg Atenolol (Tenormin) 12.5 mg PO DAILY [facility] Last Admin: 07/29/17 08:23 Dose: 12.5 mg Atorvastatin Calcium (Lipitor) 10 mg PO BEDTIME [facility] Calcium Carbonate (Calcium Carbonate/Vitamin D 1250 Mg-200 Unit) 1 tab PO BIDMEALS [facility] Last Admin: 07/29/17 08:24 Dose: 1 tab Clopidogrel Bisulfate (Plavix) 75 mg PO DAILY [facility] Cyanocobalamin (Vitamin B12) 500 mcg PO DAILY [facility] Last Admin: 07/29/17 08:23 Dose: 500 mcg Enoxaparin Sodium (Lovenox) 53 mg SUBCUT Q12H [facility] Last Admin: 07/29/17 00:29 Dose: 53 mg Fluticasone Propionate (Flonase) 0 gm NASBOTH DAILY [facility] Last Admin: 07/29/17 08:24 Dose: Not Given Latanoprost (Xalatan 0.005% Ophth Soln) 0 ml EYEBOTH BEDTIME [facility] Last Admin: 07/28/17 20:42 Dose: 1 drop Levothyroxine Sodium (Levothyroxine) 75 mcg PO DAILY@0600 [facility] Last Admin: 07/29/17 06:06 Dose: 75 mcg Loratadine (Claritin) 10 mg PO DAILY@0800 [facility] Last Admin: 07/29/17 08:23 Dose: 10 mg Multivitamins/Minerals/Vitamin C (Tab-A-Blossom) 1 tab PO DAILY [facility] Last Admin: 07/29/17 08:23 Dose: 1 tab Nitroglycerin (Nitrostat) 0.4 mg SL Q5M PRN PRN Reason: Chest Pain Pantoprazole Sodium (Protonix) 40 mg PO 0600 [facility] Raloxifene HCl (Evista) 60 mg PO DAILY [facility] Last Admin: 07/29/17 08:23 Dose: 60 mg Sodium Chloride (Saline Flush) 10 ml FLUSH ASDIRECTED PRN PRN Reason: Keep Vein Open Last Admin: 07/29/17 00:31 Dose: 10 ml Temazepam (Restoril) 7.5 mg PO BEDTIME [facility] Last Admin: 07/28/17 21:44 Dose: 7.5 mg Discontinued Medications Artificial Tears (Liquitears 1.4% Ophth Soln) 0 ml EYEBOTH QID PRN PRN Reason: Dry Eyes Atenolol (Tenormin) 25 mg PO DAILY [facility] Last Admin: 07/27/17 08:02 Dose: 25 mg Docusate Sodium (Colace) 100 mg PO BID PRN PRN Reason: Constipation Last Admin: 07/26/17 21:12 Dose: 100 mg Furosemide (Lasix) 20 mg IVPUSH Q8H [facility] Stop: 07/29/17 01:01 Last Admin: 07/29/17 00:30 Dose: 20 mg Sodium Chloride (Normal Saline) 1,000 mls @ 100 mls/hr IV ASDIRECTED [facility] Last Admin: 07/27/17 16:28 Dose: 100 mls/hr Latanoprost (Xalatan 0.005% Ophth Soln) 0 ml EYEBOTH BEDTIME [facility] Last Admin: 07/26/17 22:48 Dose: Not Given Levothyroxine Sodium (Levothyroxine) 75 mcg PO ACBREAKFAST [facility] Last Admin: 07/27/17 07:53 Dose: 75 mcg Morphine Sulfate (Morphine) 2 mg IVPUSH Q2H PRN PRN Reason: Pain (severe 7-10) Non-Formulary Medication (Polyvinyl Alcohol/Povidone [Refresh]) 1 drop EYEBOTH ASDIRECTED PRN PRN Reason: Dry Eyes Ondansetron HCl (Zofran Odt) 4 mg PO Q4H PRN PRN Reason: nausea, able to take PO Ondansetron HCl (Zofran) 4 mg IV Q4H PRN PRN Reason: Nausea/Vomiting *Q Meaningful Use (DIS) - VTE *Q VTE Criteria *Q: - Stroke *Q Stroke Criteria *Q: - AMI *Q AMI Criteria *Q:
--- NOTE | 2017-07-29 11:37 | PCM.PN ---
- General Info Date of Service: 07/29/17 Subjective Update: Tells me she is feeling a bit weaker than yesterday with regards to strength and getting up to the bathroom. She does still have some intermittent cough and shortness of breath. But denies any chest pain, pressure, neck or jaw or shoulder pain. She's had no nausea or vomiting. No particular headache around her prior laceration. She denies vision changes. She's been afebrile. Denies any sweats or chills. She denies coolness numbness or tingling to the extremities. She denies abdominal pain or difficulty with chewing and swallowing. She is visited by family frequently. - Review of Systems Systems Review Comment:: Pertinent positives and negatives relevant states this is please see subjective above - Patient Data Vitals - Most Recent: Last Vital Signs Temp 97.4 F 07/29/17 08:00 Pulse 61 07/29/17 08:23 Resp 18 07/29/17 08:00 BP 139/71 07/29/17 08:23 Pulse Ox 90 L 07/29/17 10:00 Orthostatic Blood Pressure [ 110/64 Standing] Orthostatic Blood Pressure [ 107/66 Sitting] Orthostatic Blood Pressure [ 107/56 Supine] Weight - Most Recent: 50.712 kg I&O - Last 24 Hours: Intake & Output 07/28/17 07/29/17 07/29/17 22:59 06:59 14:59 Intake Total 250 125 Output Total 1500 1050 Balance -1250 -925 Lab Results Last 24 Hours: Laboratory Results - last 24 hr 07/29/17 07/29/17 Range/Units 06:19 06:19 Sodium 138 (135-145) mmol/L Potassium 3.8 (3.5-5.3) mmol/L Chloride 100 D (100-110) mmol/L Carbon Dioxide 28 (21-32) mmol/L BUN 19 H (7-18) mg/dL Creatinine 1.1 H (0.55-1.02) mg/dL Est Cr Clr Drug Dosing 28.30 mL/min Estimated GFR (MDRD) 47 L (>60) BUN/Creatinine Ratio 17.3 (9-20) Glucose 88 (80-116) mg/dL Calcium 9.3 (8.6-10.2) mg/dL NT-Pro-B Natriuret Pep 2774 H* (<=450) pg/mL Triglycerides 87 (15-150) mg/dL Cholesterol 171 (50-200) mg/dL LDL Cholesterol Direct 105 (60-130) mg/dL HDL Cholesterol 57 (40-75) mg/dL Cholesterol/HDL Ratio 3.0 (0-5) Med Orders - Current: Current Medications Albuterol (Ventolin Hfa) 0 gm INH ASDIRECTED PRN PRN Reason: Wheezing Alprazolam (Xanax) 0.5 mg PO DAILY@0800 [facility] Last Admin: 07/29/17 08:24 Dose: 0.5 mg Artificial Tears (Liquitears 1.4% Ophth Soln) 0 ml EYEBOTH QID PRN PRN Reason: Dry Eyes Aspirin (Aspirin) 81 mg PO DAILY@1700 [facility] Last Admin: 07/28/17 16:00 Dose: 81 mg Atenolol (Tenormin) 12.5 mg PO DAILY [facility] Last Admin: 07/29/17 08:23 Dose: 12.5 mg Atorvastatin Calcium (Lipitor) 10 mg PO BEDTIME [facility] Calcium Carbonate (Calcium Carbonate/Vitamin D 1250 Mg-200 Unit) 1 tab PO BIDMEALS [facility] Last Admin: 07/29/17 08:24 Dose: 1 tab Clopidogrel Bisulfate (Plavix) 75 mg PO DAILY [facility] Cyanocobalamin (Vitamin B12) 500 mcg PO DAILY [facility] Last Admin: 07/29/17 08:23 Dose: 500 mcg Enoxaparin Sodium (Lovenox) 53 mg SUBCUT Q12H [facility] Last Admin: 07/29/17 00:29 Dose: 53 mg Fluticasone Propionate (Flonase) 0 gm NASBOTH DAILY [facility] Last Admin: 07/29/17 08:24 Dose: Not Given Latanoprost (Xalatan 0.005% Ophth Soln) 0 ml EYEBOTH BEDTIME [facility] Last Admin: 07/28/17 20:42 Dose: 1 drop Levothyroxine Sodium (Levothyroxine) 75 mcg PO DAILY@0600 [facility] Last Admin: 07/29/17 06:06 Dose: 75 mcg Loratadine (Claritin) 10 mg PO DAILY@0800 [facility] Last Admin: 07/29/17 08:23 Dose: 10 mg Multivitamins/Minerals/Vitamin C (Tab-A-Blossom) 1 tab PO DAILY [facility] Last Admin: 07/29/17 08:23 Dose: 1 tab Nitroglycerin (Nitrostat) 0.4 mg SL Q5M PRN PRN Reason: Chest Pain Pantoprazole Sodium (Protonix) 40 mg PO BEDTIME [facility] Raloxifene HCl (Evista) 60 mg PO DAILY [facility] Last Admin: 07/29/17 08:23 Dose: 60 mg Sodium Chloride (Saline Flush) 10 ml FLUSH ASDIRECTED PRN PRN Reason: Keep Vein Open Last Admin: 07/29/17 00:31 Dose: 10 ml Temazepam (Restoril) 7.5 mg PO BEDTIME [facility] Last Admin: 07/28/17 21:44 Dose: 7.5 mg Discontinued Medications Artificial Tears (Liquitears 1.4% Ophth Soln) 0 ml EYEBOTH QID PRN PRN Reason: Dry Eyes Atenolol (Tenormin) 25 mg PO DAILY [facility] Last Admin: 07/27/17 08:02 Dose: 25 mg Docusate Sodium (Colace) 100 mg PO BID PRN PRN Reason: Constipation Last Admin: 07/26/17 21:12 Dose: 100 mg Furosemide (Lasix) 20 mg IVPUSH Q8H [facility] Stop: 07/29/17 01:01 Last Admin: 07/29/17 00:30 Dose: 20 mg Sodium Chloride (Normal Saline) 1,000 mls @ 100 mls/hr IV ASDIRECTED [facility] Last Admin: 07/27/17 16:28 Dose: 100 mls/hr Latanoprost (Xalatan 0.005% Ophth Soln) 0 ml EYEBOTH BEDTIME [facility] Last Admin: 07/26/17 22:48 Dose: Not Given Levothyroxine Sodium (Levothyroxine) 75 mcg PO ACBREAKFAST [facility] Last Admin: 07/27/17 07:53 Dose: 75 mcg Morphine Sulfate (Morphine) 2 mg IVPUSH Q2H PRN PRN Reason: Pain (severe 7-10) Non-Formulary Medication (Polyvinyl Alcohol/Povidone [Refresh]) 1 drop EYEBOTH ASDIRECTED PRN PRN Reason: Dry Eyes Ondansetron HCl (Zofran Odt) 4 mg PO Q4H PRN PRN Reason: nausea, able to take PO Ondansetron HCl (Zofran) 4 mg IV Q4H PRN PRN Reason: Nausea/Vomiting - Exam Physical Findings Comments:: Quality Assessment: Supplemental Oxygen 2L General: Alert, Oriented, Cooperative, in chair just finishing breakfast without evidence of respiratory distress or dysphagia/aspiration. [place] eyes now improving. Neck: Supple, Trachea Midline. No: Thyromegaly Lungs: Normal Respiratory Effort, Crackles (bilateral bases coarse likely chronic) Cardiovascular: Regular Rate, Regular Rhythm, Normal S1, Normal S2. No: Systolic Murmur, Rubs, no audible carotid bruits with bilateral pulses palpated. GI/Abdominal Exam: Normal Bowel Sounds, Soft, Non-Tender Back Exam: Normal Inspection Extremities: No: Non-Tender, Pedal Edema Skin: Warm, Dry, Wound (forehead lac from prior injury. routine healing. also bruising to the right inner knee) Neurological: Strength Equal Bilateral, Normal Speech, Normal Tone. No: Focal Deficit Neuro Extensive - Mental Status: Alert, Oriented x3, Normal Mood/Affect, Normal Cognition Neuro Extensive - Motor, Sensory, Reflexes: CN II-XII Intact - Problem List & Annotations (1) Non-STEMI (non-ST elevated myocardial infarction) SNOMED Code(s): 304043171 Code(s): I21.4 - NON-ST ELEVATION (NSTEMI) MYOCARDIAL INFARCTION Status: Acute Priority: High Current Visit: Yes (2) Coronary artery disease SNOMED Code(s): 83060093 Code(s): I25.10 - ATHSCL HEART DISEASE OF [place] CORONARY ARTERY W/O ANG PCTRS Status: Acute Current Visit: Yes Qualifiers: Coronary Disease-Associated Artery/Lesion type: [place] artery [place] vs. transplanted heart: [place] heart Associated angina: with unstable angina Qualified Code(s): I25.110 - Atherosclerotic heart disease of [place] coronary artery with unstable angina pectoris (3) Syncope and collapse SNOMED Code(s): 778375598 Code(s): R55 - SYNCOPE AND COLLAPSE Status: Acute Priority: High Current Visit: Yes (4) COPD (chronic obstructive pulmonary disease) SNOMED Code(s): 63373256 Code(s): J44.9 - CHRONIC OBSTRUCTIVE PULMONARY DISEASE, UNSPECIFIED Status : Chronic Current Visit: Yes Qualifiers: COPD type: chronic bronchitis (5) Tobacco use disorder, continuous SNOMED Code(s): 437043790 Code(s): F17.209 - NICOTINE DEPENDENCE, UNSP, W UNSP NICOTINE-INDUCED DISORDERS Status: Chronic Current Visit: Yes (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 SNOMED Code(s): 071609810 Code(s): F02.80 - DEMENTIA IN OTH DISEASES CLASSD ELSWHR W/O BEHAVRL DISTURB Status: Chronic Current Visit: Yes Qualifiers: Dementia behavioral disturbance: without behavioral disturbance Qualified Code(s): F02.80 - Dementia in other diseases classified elsewhere without behavioral disturbance (7) Palliative care status SNOMED Code(s): 149941532 Code(s): Z51.5 - ENCOUNTER FOR PALLIATIVE CARE Status: Acute Current Visit: Yes (8) Hypothyroidism SNOMED Code(s): 39905150 Code(s): E03.9 - HYPOTHYROIDISM, UNSPECIFIED Status: Chronic Current Visit: Yes Qualifiers: Hypothyroidism type: unspecified Qualified Code(s): E03.9 - Hypothyroidism , unspecified (9) Anxiety disorder SNOMED Code(s): 124563651 Code(s): F41.9 - ANXIETY DISORDER, UNSPECIFIED Status: Chronic Current Visit: Yes Qualifiers: Anxiety disorder type: generalized anxiety disorder Qualified Code(s): F41.1 - Generalized anxiety disorder (10) Orthostatic hypotension SNOMED Code(s): 10217396 Code(s): I95.1 - ORTHOSTATIC HYPOTENSION Status: Acute Current Visit: Yes (11) Pulmonary edema cardiac cause SNOMED Code(s): 97692661 Code(s): I50.1 - LEFT VENTRICULAR FAILURE, UNSPECIFIED Status: Acute Current Visit: Yes Onset Date: 07/28/17 (12) Bradycardia with 31-40 beats per minute SNOMED Code(s): 54318037 Code(s): R00.1 - BRADYCARDIA, UNSPECIFIED Status: Acute Current Visit: Yes (13) CHF (congestive heart failure) SNOMED Code(s): 05356140 Code(s): I50.9 - HEART FAILURE, UNSPECIFIED Status: Suspected Current Visit: Yes - Problem List Review Problem List Initiated/Reviewed/Updated: Yes - My Orders Last 24 Hours: My Active Orders 07/29/17 09:04 Orthostatic Vital Signs [RC] ASDIRECTED 07/29/17 09:25 6 Minute Walk Test [OM.PC] Routine 07/29/17 21:00 atorvaSTATin [Lipitor] 10 mg PO BEDTIME 07/29/17 Breakfast Heart Healthy Diet [DIET] 07/30/17 05:11 BASIC METABOLIC PANEL,BMP [CHEM] AM 07/30/17 08:00 Echo Comp wo Cont [US] Routine 07/30/17 09:00 Clopidogrel [Plavix] 75 mg PO DAILY 07/30/17 21:00 Pantoprazole [ProTONIX] 40 mg PO BEDTIME - Assessment Assessment:: please see above. - Plan Plan:: Non-STEMI protocol continues. She has received aspirin. Continue therapeutic Lovenox 1 mg/kg subcutaneous twice a day to complete 48 hour course. will start plavix at that time. Will continue on telemetry. She is on a nonselective beta rosendo atenolol now at 12.5 mg daily. Will monitor pulse and blood pressure with these changes. She is diuresed. I did saline lock her IV. We'll also get orthostatics are positive but assymptomatic. Daily weight improved. Oxygen to keep sats greater than 89%. Morphine intermittently and nitroglycerin sublingual for any chest pain or pressure. Serial troponins continue to trend down. Anticipate stay additional 48-72 hours. She ambulated in the room and some in the [place] with nursing. All questions answered with her and her family at the bedside.
[2017-07-29] MEDS: Aspirin 81 MG Tab.Chew PO SCH (18:27)
[2017-07-29] MEDS: atorvaSTATin 10 MG Tab PO SCH (21:08)
[2017-07-29] MEDS: Latanoprost 0.005% Ophth Soln 2.5 ML Bottle EYEBOTH SCH (21:09)
[2017-07-30] MEDS ORDERED: Enoxaparin 30 MG/0.3 ML Syringe SUBCUT SCH
[2017-07-30] MEDS: Levothyroxine 75 MCG Tab PO SCH (05:36)
[2017-07-30] MEDS: Raloxifene 60 MG Tab PO SCH (08:36)
[2017-07-30] MEDS: Calcium Carbonate/Vitamin D3 1250 MG-200 Unit Tab PO SCH ×2 (08:36→17:28)
[2017-07-30] MEDS: Loratadine 10 MG Tab PO SCH (08:36)
[2017-07-30] MEDS: Fluticasone Propionate Nasal Spray 16 GM Bottle NASBOTH SCH (08:37)
[2017-07-30] MEDS: Multivitamin Tab PO SCH (08:37)
[2017-07-30] MEDS: Enoxaparin 30 MG/0.3 ML Syringe SUBCUT SCH (08:37)
[2017-07-30] MEDS: Clopidogrel 75 MG Tab PO SCH (08:37)
[2017-07-30] MEDS: Atenolol 25 MG Tab PO SCH ×2 (08:45→11:24)
[2017-07-30] MEDS: Cyanocobalamin (Vitamin B12) 500 MCG Tab PO SCH (08:45)
--- NOTE | 2017-07-30 09:56 | PCM.PN ---
- General Info Date of Service: 07/30/17 Subjective Update: Tells me she is feelings a bit stronger today when compared to yesterday. she has been getting up to the bathroom. She does still have some intermittent cough and shortness of breath. She is being treated for NSTEMI. Denies any chest pain, pressure, neck or jaw or shoulder pain. She's had no nausea or vomiting. No particular headache around her prior laceration. She denies vision changes. She's been afebrile. Denies any sweats or chills. She denies coolness numbness or tingling to the extremities. She denies abdominal pain or difficulty with chewing and swallowing. She is visited by family frequently. no nursing concerns, but asking to hold atenolol as her bp has been frequently running in the 90-110 /50-62 mmHg. pulse staying in the 60s. Functional Status: Reports: Tolerating Diet, Ambulating, Urinating, Incentive Spirometry - Review of Systems Systems Review Comment:: For pertinent positives and negatives relevant to today's visit please see history of present illness - Patient Data Vitals - Most Recent: Last Vital Signs Temp 97.9 F 07/30/17 05:43 Pulse 60 07/30/17 08:45 Resp 17 07/30/17 05:43 BP 111/64 07/30/17 08:45 Pulse Ox 98 07/30/17 09:20 Orthostatic Blood Pressure [ 110/64 Standing] Orthostatic Blood Pressure [ 107/66 Sitting] Orthostatic Blood Pressure [ 107/56 Supine] Weight - Most Recent: 50.848 kg I&O - Last 24 Hours: Intake & Output 07/29/17 07/30/17 22:59 06:59 Intake Total 175 Output Total 300 Balance -125 Lab Results Last 24 Hours: Laboratory Results - last 24 hr 07/30/17 Range/Units 06:10 Sodium 137 (135-145) mmol/L Potassium 4.0 (3.5-5.3) mmol/L Chloride 100 (100-110) mmol/L Carbon Dioxide 31 (21-32) mmol/L BUN 27 H (7-18) mg/dL Creatinine 1.4 H (0.55-1.02) mg/dL Est Cr Clr Drug Dosing 22.24 mL/min Estimated GFR (MDRD) 35 L (>60) BUN/Creatinine Ratio 19.3 (9-20) Glucose 95 (80-116) mg/dL Calcium 9.3 (8.6-10.2) mg/dL Med Orders - Current: Current Medications Albuterol (Ventolin Hfa) 0 gm INH ASDIRECTED PRN PRN Reason: Wheezing Alprazolam (Xanax) 0.5 mg PO BEDTIME [facility] Last Admin: 07/29/17 21:08 Dose: 0.5 mg Artificial Tears (Liquitears 1.4% Ophth Soln) 0 ml EYEBOTH QID PRN PRN Reason: Dry Eyes Aspirin (Aspirin) 81 mg PO DAILY@1700 [facility] Last Admin: 07/29/17 18:27 Dose: 81 mg Atenolol (Tenormin) 12.5 mg PO DAILY [facility] Last Admin: 07/30/17 08:45 Dose: 12.5 mg Atorvastatin Calcium (Lipitor) 10 mg PO BEDTIME [facility] Last Admin: 07/29/17 21:08 Dose: 10 mg Calcium Carbonate (Calcium Carbonate/Vitamin D 1250 Mg-200 Unit) 1 tab PO BIDMEALS [facility] Last Admin: 07/30/17 08:36 Dose: 1 tab Clopidogrel Bisulfate (Plavix) 75 mg PO DAILY [facility] Last Admin: 07/30/17 08:37 Dose: 75 mg Cyanocobalamin (Vitamin B12) 500 mcg PO DAILY [facility] Last Admin: 07/30/17 08:45 Dose: 500 mcg Enoxaparin Sodium (Lovenox) 30 mg SUBCUT Q24H [facility] Last Admin: 07/30/17 08:37 Dose: 30 mg Fluticasone Propionate (Flonase) 0 gm NASBOTH DAILY [facility] Last Admin: 07/30/17 08:37 Dose: 1 spray Latanoprost (Xalatan 0.005% Ophth Soln) 0 ml EYEBOTH BEDTIME [facility] Last Admin: 07/29/17 21:09 Dose: 1 drop Levothyroxine Sodium (Levothyroxine) 75 mcg PO DAILY@0600 [facility] Last Admin: 07/30/17 05:36 Dose: 75 mcg Loratadine (Claritin) 10 mg PO DAILY@0800 [facility] Last Admin: 07/30/17 08:36 Dose: 10 mg Multivitamins/Minerals/Vitamin C (Tab-A-Blossom) 1 tab PO DAILY [facility] Last Admin: 07/30/17 08:37 Dose: 1 tab Nitroglycerin (Nitrostat) 0.4 mg SL Q5M PRN PRN Reason: Chest Pain Pantoprazole Sodium (Protonix) 40 mg PO BEDTIME [facility] Raloxifene HCl (Evista) 60 mg PO DAILY [facility] Last Admin: 07/30/17 08:36 Dose: 60 mg Sodium Chloride (Saline Flush) 10 ml FLUSH ASDIRECTED PRN PRN Reason: Keep Vein Open Last Admin: 07/29/17 00:31 Dose: 10 ml Discontinued Medications Alprazolam (Xanax) 0.5 mg PO DAILY@0800 [facility] Last Admin: 07/29/17 08:24 Dose: 0.5 mg Artificial Tears (Liquitears 1.4% Ophth Soln) 0 ml EYEBOTH QID PRN PRN Reason: Dry Eyes Atenolol (Tenormin) 25 mg PO DAILY [facility] Last Admin: 07/27/17 08:02 Dose: 25 mg Docusate Sodium (Colace) 100 mg PO BID PRN PRN Reason: Constipation Last Admin: 07/26/17 21:12 Dose: 100 mg Enoxaparin Sodium (Lovenox) 53 mg SUBCUT Q12H [facility] Last Admin: 07/29/17 14:42 Dose: Not Given Enoxaparin Sodium (Lovenox) 30 mg SUBCUT Q24H [facility] Stop: 07/31/17 00:01 Furosemide (Lasix) 20 mg IVPUSH Q8H [facility] Stop: 07/29/17 01:01 Last Admin: 07/29/17 00:30 Dose: 20 mg Sodium Chloride (Normal Saline) 1,000 mls @ 100 mls/hr IV ASDIRECTED [facility] Last Admin: 07/27/17 16:28 Dose: 100 mls/hr Latanoprost (Xalatan 0.005% Ophth Soln) 0 ml EYEBOTH BEDTIME [facility] Last Admin: 07/26/17 22:48 Dose: Not Given Levothyroxine Sodium (Levothyroxine) 75 mcg PO ACBREAKFAST [facility] Last Admin: 07/27/17 07:53 Dose: 75 mcg Morphine Sulfate (Morphine) 2 mg IVPUSH Q2H PRN PRN Reason: Pain (severe 7-10) Non-Formulary Medication (Polyvinyl Alcohol/Povidone [Refresh]) 1 drop EYEBOTH ASDIRECTED PRN PRN Reason: Dry Eyes Ondansetron HCl (Zofran Odt) 4 mg PO Q4H PRN PRN Reason: nausea, able to take PO Ondansetron HCl (Zofran) 4 mg IV Q4H PRN PRN Reason: Nausea/Vomiting Temazepam (Restoril) 7.5 mg PO BEDTIME [facility] Last Admin: 07/28/17 21:44 Dose: 7.5 mg - Exam Physical Findings Comments:: Quality Assessment: Supplemental Oxygen 2L General: Alert, Oriented, Cooperative, in chair just finishing breakfast without evidence of respiratory distress or dysphagia/aspiration. Raccoon eyes improving. Neck: Supple, Trachea Midline. Lungs: Normal Respiratory Effort, Crackles (bilateral bases coarse likely chronic) Cardiovascular: Regular Rate, Regular Rhythm, Normal S1, Normal S2. No: Systolic Murmur, Rubs, no audible carotid bruits with bilateral pulses palpated. GI/Abdominal Exam: Normal Bowel Sounds, Soft, Non-Tender Back Exam: Normal Inspection Extremities: No: Non-Tender, Pedal Edema Skin: Warm, Dry, Wound (forehead lac from prior injury. routine healing. also bruising to the right inner knee) Neurological: Strength Equal Bilateral, Normal Speech, Normal Tone. No: Focal Deficit Neuro Extensive - Mental Status: Alert, Oriented x3, Normal Mood/Affect, Normal Cognition Neuro Extensive - Motor, Sensory, Reflexes: CN II-XII Intact - Problem List & Annotations (1) Non-STEMI (non-ST elevated myocardial infarction) SNOMED Code(s): 467431426 Code(s): I21.4 - NON-ST ELEVATION (NSTEMI) MYOCARDIAL INFARCTION Status: Acute Priority: High Current Visit: Yes (2) Coronary artery disease SNOMED Code(s): 23559873 Code(s): I25.10 - ATHSCL HEART DISEASE OF [place] CORONARY ARTERY W/O ANG PCTRS Status: Acute Current Visit: Yes Qualifiers: Coronary Disease-Associated Artery/Lesion type: [place] artery [place] vs. transplanted heart: [place] heart Associated angina: with unstable angina Qualified Code(s): I25.110 - Atherosclerotic heart disease of [place] coronary artery with unstable angina pectoris (3) Syncope and collapse SNOMED Code(s): 522661487 Code(s): R55 - SYNCOPE AND COLLAPSE Status: Acute Priority: High Current Visit: Yes (4) COPD (chronic obstructive pulmonary disease) SNOMED Code(s): 67097071 Code(s): J44.9 - CHRONIC OBSTRUCTIVE PULMONARY DISEASE, UNSPECIFIED Status : Chronic Current Visit: Yes Qualifiers: COPD type: chronic bronchitis (5) Tobacco use disorder, continuous SNOMED Code(s): 803123445 Code(s): F17.209 - NICOTINE DEPENDENCE, UNSP, W UNSP NICOTINE-INDUCED DISORDERS Status: Chronic Current Visit: Yes (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 SNOMED Code(s): 503012672 Code(s): F02.80 - DEMENTIA IN OTH DISEASES CLASSD ELSWHR W/O BEHAVRL DISTURB Status: Chronic Current Visit: Yes Qualifiers: Dementia behavioral disturbance: without behavioral disturbance Qualified Code(s): F02.80 - Dementia in other diseases classified elsewhere without behavioral disturbance (7) Palliative care status SNOMED Code(s): 549762830 Code(s): Z51.5 - ENCOUNTER FOR PALLIATIVE CARE Status: Acute Current Visit: Yes (8) Hypothyroidism SNOMED Code(s): 02071146 Code(s): E03.9 - HYPOTHYROIDISM, UNSPECIFIED Status: Chronic Current Visit: Yes Qualifiers: Hypothyroidism type: unspecified Qualified Code(s): E03.9 - Hypothyroidism , unspecified (9) Anxiety disorder SNOMED Code(s): 724389798 Code(s): F41.9 - ANXIETY DISORDER, UNSPECIFIED Status: Chronic Current Visit: Yes Qualifiers: Anxiety disorder type: generalized anxiety disorder Qualified Code(s): F41.1 - Generalized anxiety disorder (10) Orthostatic hypotension SNOMED Code(s): 18438565 Code(s): I95.1 - ORTHOSTATIC HYPOTENSION Status: Acute Current Visit: Yes (11) Pulmonary edema cardiac cause SNOMED Code(s): 66972945 Code(s): I50.1 - LEFT VENTRICULAR FAILURE, UNSPECIFIED Status: Acute Current Visit: Yes Onset Date: 07/28/17 (12) Bradycardia with 31-40 beats per minute SNOMED Code(s): 53908181 Code(s): R00.1 - BRADYCARDIA, UNSPECIFIED Status: Acute Current Visit: Yes (13) CHF (congestive heart failure) SNOMED Code(s): 48201203 Code(s): I50.9 - HEART FAILURE, UNSPECIFIED Status: Suspected Current Visit: Yes - Problem List Review Problem List Initiated/Reviewed/Updated: Yes - My Orders Last 24 Hours: My Active Orders 07/29/17 09:04 Orthostatic Vital Signs [RC] ASDIRECTED 07/29/17 09:25 6 Minute Walk Test [OM.PC] Routine 07/29/17 21:00 ALPRAZolam [Xanax] 0.5 mg PO BEDTIME atorvaSTATin [Lipitor] 10 mg PO BEDTIME 07/30/17 09:00 Clopidogrel [Plavix] 75 mg PO DAILY Enoxaparin [Lovenox] 30 mg SUBCUT Q24H 07/30/17 21:00 Pantoprazole [ProTONIX] 40 mg PO BEDTIME 07/31/17 08:00 Echo Comp wo Cont [US] Routine - Assessment Assessment:: please see above. - Plan Plan:: She will start Plavix this morning and will remain on DVT prophylaxis with Lovenox renal dosing. Would like PT OT reevaluate to get her strength back up. Also having respiratory evaluate for possible home oxygen therapy. Hold the beta rosendo this morning see how she does .Oxygen to keep sats greater than 89% . Morphine intermittently and nitroglycerin sublingual for any chest pain or pressure. EKG shows no focal deficits. Echocardiogram tomorrow. Anticipate inpatient stay additional 24-48 hours. hours.
--- NOTE | 2017-07-30 11:30 | CR ---
INDICATION: Dyspnea, status post non-STEMI. CHEST: PA and lateral views of the chest 07/28/2017. No comparisons. The heart appeared to be near the upper limits of normal in size. The aorta is tortuous with calcification in the arch and descending portion. Diminished bone density is noted, compatible with osteoporosis. Markedly narrowed disk space is noted at two mid thoracic levels with sclerosis at those levels. Vertebral body heights were fairly well maintained. Somewhat flattened diaphragm leaves, prominent AP diameter, and marked hyperaeration are all compatible with COPD. Heavy markings are noted in the mid to lower lung shaw, especially at the lung bases, compatible with pulmonary fibrosis, but making it difficult to exclude patchy bronchopneumonia in those areas. No gross consolidating pneumonia or significant sized effusion was seen. A moderate dextroconcave rotoscoliosis of the lower thoracic spine - upper lumbar spine is noted. Overlying EKG leads are noted. IMPRESSION: 1. No definite acute process, but cannot exclude areas of patchy bronchopneumonia, especially at the lung bases and right mid lung field. 2. Severe COPD. 3. Degenerative changes and disk disease mid thoracic spine. 4. ASHD with mild cardiomegaly. 5. Osteoporosis. 6. Scoliosis. MTDD
--- NOTE | 2017-07-30 12:59 | ER ---
DATE SEEN: 07/26/2017 HISTORY OF PRESENT ILLNESS: Aminah is an 87-year-old resident of [facility], , who was taking letters out of the mailbox today, she turned around and fell down. She fell down 2 days ago and had a laceration to scalp and it was repaired. Approximately 2 days ago, she was seen in the clinic and had laceration repair of her frontal scalp and was sent home. She was fallen two different times since then. She has mild rhinorrhea that is watery. She has a cough that is baseline. She denies any chest pain, irregular heartbeat, lightheadedness, syncope, presyncope, dizziness, or compromise in her vision; although, she has decreased vision because of her age. No acute changes in vision. She denies any new gastrointestinal symptoms, nausea, vomiting, diarrhea, or sympathomimetic symptoms of diaphoresis. PAST MEDICAL HISTORY: Significant for glaucoma. The patient is articulate. She is hard of hearing. She is attended by her daughter and two sons. One son has some laryngeal carcinoma, does writing, he is very astute about what is going on and just is very helpful. MEDICATIONS: 1. Albuterol 2 puffs p.r.n. 2. Alprazolam 0.5 mg q.8 p.r.n. 3. Ophthalmic glaucoma medicine; latanoprost one drop daily. 4. Cyanocobalamin, vitamin B12, for globulin deficiency megaloblastic anemia. 5. Raloxifene 60 mg. 6. Multivitamin. 7. Loratadine p.r.n. 8. Levothyroxine 75 mcg daily. 9. Fluticasone, Flovent 50. 10.Calcium carbonate 600 mg. 11.Vitamin D. 12.Atenolol 25 mg. 13.Aspirin 81 mg. REVIEW OF SYSTEMS: HEENT: Wears glasses. Hard of hearing. CARDIORESPIRATORY: No chest pain. No irregular beats, see note above. GI: Negative. No reflux. No blood in the stool, black tarry stool, diarrhea, or constipation. : Negative. No incontinence. 3, para 3. EXTREMITIES: Without abnormality, except mild arthritis. NEURO: Denies headache, head injury, seizures, CVA, or TIA. PHYSICAL EXAMINATION: VITAL SIGNS: Blood pressure 118/59, heart rate 74 and regular, respirations 15, 94% oxygen saturation on room air, and temperature is 36.1 degrees centigrade. GENERAL: A very articulate, very pleasant, very good eye contact, and a good communicator. She is very alert. No dementia noted. HEENT: PERRLA intact. Eyegrounds narrowing retina. Hearing is decreased. NECK: No thyromegaly. No tracheal tug. No bruits in the neck. LUNGS: Clear without rales or rhonchi. HEART: S1, S2. No irregular rate or rhythm. No murmur. ABDOMEN: Soft. No guarding. No abdominal discomfort. Bowel sounds normal. EXTREMITIES: Without edema. Deep tendon reflexes hypoactive, but present in upper and lower extremities. No past pointing. No pronator drift. No dysmetria. Muscle strength in upper and lower extremities is very good 4+ to 5+/5+. Gait appropriate. Romberg negative. 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 Poor R wave progression. No ST elevation. LABORATORY DATA: She has elevated troponin of 0.436. BUN 24, creatinine 1.2. GFR 42. Glucose 132 (reactive elevation). AST 27, otherwise ALT normal. Albumin low at 2.7. Hemoglobin 15.5, white count 10,600, PMNs 67, lymphocytes 23, monos 8, eosinophils 2. ASSESSMENT: 1. Xni-OD-yxwekgdsg myocardial infarction. 2. Presbycusis. 3. Has false teeth. 4. Previous cataract surgery. 5. Glaucomas. 6. "Has had history of gallbladder trouble, never had gallbladder surgery." 7. She thinks, at one time, she had an aortic porcine valve placement. She has had a heart involvement in the past, but they did not want to operate, but her daughter and sons shake their head and they say she is incorrect. There is no sternotomy incision. If she did have aortic porcine valve, it had to have been placed transcatheter and the technology has not evolved beyond research for transcatheter aortic valve placement. So she did not have a porcine valve or aortic valve transcatheter placement. Perhaps, she has had catheter study, but I would have to check with [place], and I did not call [place] regarding this. That is something the hospitalist may want to call to validate what her coronary artery status has been in the past. The patient was admitted to ICU for observation. Repeat troponin in the morning and also EKG, and repeat troponin in 2 hours. /[id number] 2023 1518 VALERIA/GILBERTO RAWLS
[2017-07-30] MEDS: Aspirin 81 MG Tab.Chew PO SCH (17:28)
[2017-07-30] MEDS: Latanoprost 0.005% Ophth Soln 2.5 ML Bottle EYEBOTH SCH (20:00)
[2017-07-30] MEDS: atorvaSTATin 10 MG Tab PO SCH (20:00)
[2017-07-30] MEDS: ALPRAZolam 0.5 MG Tab PO SCH (20:08)
[2017-07-30] MEDS ORDERED: Pantoprazole 40 MG Tab.CR PO SCH (21:00)
[2017-07-31] MEDS: Levothyroxine 75 MCG Tab PO SCH (05:09)
[2017-07-31] MEDS: Calcium Carbonate/Vitamin D3 1250 MG-200 Unit Tab PO SCH (08:08)
[2017-07-31] MEDS: Fluticasone Propionate Nasal Spray 16 GM Bottle NASBOTH SCH (08:09)
[2017-07-31] MEDS: Loratadine 10 MG Tab PO SCH (08:09)
[2017-07-31] MEDS: Raloxifene 60 MG Tab PO SCH (08:09)
[2017-07-31] MEDS: Enoxaparin 30 MG/0.3 ML Syringe SUBCUT SCH (08:10)
[2017-07-31] MEDS: Clopidogrel 75 MG Tab PO SCH (08:11)
[2017-07-31] MEDS: Multivitamin Tab PO SCH (08:11)
[2017-07-31] MEDS: Cyanocobalamin (Vitamin B12) 500 MCG Tab PO SCH (08:11)
--- NOTE | 2017-07-31 11:19 | PCM.DCSUM1 ---
Discharge Summary - Hospital Course Free Text/Narrative:: Pleasant 87-year-old female presented to the emergency department after having had a syncopal episode while upright washing window. She never had chest pain or headache or sudden onset blurred vision. Just 1 minute she was up at next minute she was down. She did sustain a head laceration a day or 2 prior for a fall. She denied having any palpitations neck or jaw pain, shoulder pain epigastric pain nausea vomiting acute shortness of breath or dyspnea peripheral weakness numbness or tingling. She denied any injury that she had sustained. There was no loss of bowel or bladder function. She was alert and oriented without focal deficits that she perceived. recent gastrointestinal illness. Denies any new medication changes either prescribed or [id number]. Denies any recent ill contacts. She denied any perceived fevers, chills, cough, congestion or wheezing. She is a known long- time smoker down to 4 cigarettes daily. She has coronary artery disease with coronary stenting as well as documented prior myocardial infarction. Physical evaluation and laboratory studies indicated myocardial infarction without ST changes (non-STEMI) with hemodynamic stability. Pulmonary status chronic COPD requiring O2 therapy secondary to acute exacerbation. Hospital course: She was started on therapeutic Lovenox, continued on aspirin, serial troponins were followed along with EKGs. She was also started on a statin was already on a beta rosendo but blood pressures and pulse prohibited BOO inhibitor and her beta rosendo had to be discontinued. Started on GI prophylaxis with Protonix, COPD exacerbation was managed respiratory therapy, oxygen therapy, SVNs, supportive cares. Over the course of her stay she did quite well. Her strength increased, she was having no pain, shortness of breath improved an echocardiogram showed no regional wall abnormalities cardiac strain or failure status. She did however fell a walking desat study require chronic O2 therapy secondary to her severe COPD status. This has been set up with her. She will also continue her inhale inhalers and nebulizations at home and follow-up with her PCP for coordination of care regarding cardiac follow-up, medication management and review, and other consultations, procedures or studies her PCP deems appropriate. Patient and family are in agreement the above plan of care. It is reiterated that she will continue both aspirin and Plavix, new statin, and GI prophylaxis. She also has had her beta rosendo stopped due to bradycardia and hypotension, BOO inhibitor withheld due to low blood pressures as well. These can be started outpatient should they be deemed necessary. All questions answered and they are in agreement with the above plan of care. - Discharge Data Discharge Date: 07/31/17 Discharge Disposition: Home, W Home Health Agency 06 Condition: Good - Discharge Diagnosis/Problem(s) (1) Non-STEMI (non-ST elevated myocardial infarction) SNOMED Code(s): 937743534 ICD Code: I21.4 - NON-ST ELEVATION (NSTEMI) MYOCARDIAL INFARCTION Status: Acute Priority: High (2) Coronary artery disease SNOMED Code(s): 93433425 ICD Code: I25.10 - ATHSCL HEART DISEASE OF [place] CORONARY ARTERY W/O ANG PCTRS Status: Chronic Qualifiers: Coronary Disease-Associated Artery/Lesion type: [place] artery [place] vs. transplanted heart: [place] heart Associated angina: with unstable angina Qualified Code(s): I25.110 - Atherosclerotic heart disease of [place] coronary artery with unstable angina pectoris (3) Syncope and collapse SNOMED Code(s): 520859545 ICD Code: R55 - SYNCOPE AND COLLAPSE Status: Resolved Priority: High (4) Supplemental oxygen dependent SNOMED Code(s): 606331844199 ICD Code: Z99.81 - DEPENDENCE ON SUPPLEMENTAL OXYGEN Status: Acute Priority: High (5) COPD (chronic obstructive pulmonary disease) SNOMED Code(s): 94381661 ICD Code: J44.9 - CHRONIC OBSTRUCTIVE PULMONARY DISEASE, UNSPECIFIED Status : Chronic Priority: High Qualifiers: COPD type: chronic bronchitis (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 SNOMED Code(s): 352281828 ICD Code: F02.80 - DEMENTIA IN OTH DISEASES CLASSD ELSWHR W/O BEHAVRL DISTURB Status: Chronic Qualifiers: Dementia behavioral disturbance: without behavioral disturbance Qualified Code(s): F02.80 - Dementia in other diseases classified elsewhere without behavioral disturbance (7) Palliative care status SNOMED Code(s): 691730232 ICD Code: Z51.5 - ENCOUNTER FOR PALLIATIVE CARE Status: Acute (8) Hypothyroidism SNOMED Code(s): 18121663 ICD Code: E03.9 - HYPOTHYROIDISM, UNSPECIFIED Status: Chronic Qualifiers: Hypothyroidism type: unspecified Qualified Code(s): E03.9 - Hypothyroidism , unspecified (9) Anxiety disorder SNOMED Code(s): 858577758 ICD Code: F41.9 - ANXIETY DISORDER, UNSPECIFIED Status: Chronic Qualifiers: Anxiety disorder type: generalized anxiety disorder Qualified Code(s): F41.1 - Generalized anxiety disorder (10) Orthostatic hypotension SNOMED Code(s): 10281540 ICD Code: I95.1 - ORTHOSTATIC HYPOTENSION Status: Resolved (11) Pulmonary edema cardiac cause SNOMED Code(s): 88427314 ICD Code: I50.1 - LEFT VENTRICULAR FAILURE, UNSPECIFIED Status: Resolved Onset Date: 07/28/17 (12) CHF (congestive heart failure) SNOMED Code(s): 44422752 ICD Code: I50.9 - HEART FAILURE, UNSPECIFIED Status: Suspected (13) Bradycardia with 31-40 beats per minute SNOMED Code(s): 75446178 ICD Code: R00.1 - BRADYCARDIA, UNSPECIFIED Status: Resolved (14) Tobacco use disorder, continuous SNOMED Code(s): 954748387 ICD Code: F17.209 - NICOTINE DEPENDENCE, UNSP, W UNSP NICOTINE-INDUCED DISORDERS Status: Chronic - Patient Summary/Data Consults: Consultations 07/26/17 20:06 Consult to Spiritual Care [CONS] Routine OT Evaluation and Treatment [CONS] Routine Please Evaluate and Treat. OT Reason for Consult: Other (Type Response) Pending Discharge: No Discharge Disposition: Inpatient Rehab This query below is only for informational purposes and is not editable. Admission Diagnosis/Problem: NSTEMI, initial episode of care 07/28/17 08:41 Respiratory Care Assess and Treatment [CONS] Routine Comment: Physician Instructions: 07/30/17 11:31 PT Evaluation and Treatment [CONS] Routine Please Evaluate and Treat. PT Reason for Consult: Strengthening This query below is only for informational purposes and is not editable. Admission Diagnosis/Problem: NSTEMI, initial episode of care Recommended Follow-up Testing/Procedures: 7-10 with PCP for outpt coordination of cares and medication reconcile review due to additions and changes; recommend cardiology appointment for recent NSTEMI ; . - Patient Instructions Diet: Heart Healthy Diet Activity: Cough & Deep Breathe, No Strenuous Activities Driving: Do Not Drive Showering/Bathing: May Shower Wound/Incision Care: Keep Operative Site/Wound Site Clean and Dry Notify Provider of: Fever, Increased Pain, Nausea and/or Vomiting Other/Special Instructions: Patient's scalp sutures have been removed prior to discharge. She is to keep the area clean with warm water and soap otherwise open air. - Discharge Plan Prescriptions/Med Rec: atorvaSTATin [Lipitor] 10 mg PO BEDTIME #90 tablet Clopidogrel [Plavix] 75 mg PO DAILY #90 tablet Nitroglycerin 0.4 mg SL Q5M PRN #90 tab.subl PRN Reason: Chest Pain Pantoprazole [ProTONIX] 40 mg PO BEDTIME #90 tab.cr Home Medications: Home Meds Albuterol [Proventil HFA] 2 puff PO ASDIRECTED PRN 07/26/17 [History] Aspirin 81 mg PO 17 07/26/17 [History] Calcium Carbonate/Vitamin D3 [Calcium 600 + Vit D 400 Softgl] 1 tab PO , [History] Cyanocobalamin (Vitamin B12) [Vitamin B12] 500 mcg PO 07/26/17 [History] Fluticasone Propionate [Flovent] 50 mcg NASBOTH DAILY 07/26/17 [History] Latanoprost [Xalatan 0.005% Ophth Soln] 1 drop EYEBOTH DAILY 07/26/17 [History] Levothyroxine 75 mcg PO 07 07/26/17 [History] Loratadine 10 mg PO 08 07/26/17 [History] Multivitamin [Multivitamins] 1 tab PO 08 07/26/17 [History] Raloxifene HCl 60 mg PO 08 07/26/17 [History] Polyvinyl Alcohol/Povidone/Pf [Refresh Classic Eye Drops] 1 drop EYEBOTH ASDIRECTED PRN 07/27/17 [History] ALPRAZolam [Xanax] 0.5 mg PO BEDTIME #0 07/31/17 [Rx] Clopidogrel [Plavix] 75 mg PO DAILY #90 tablet 07/31/17 [Rx] Nitroglycerin 0.4 mg SL Q5M PRN #90 tab.subl 07/31/17 [Rx] Pantoprazole [ProTONIX] 40 mg PO BEDTIME #90 tab.cr 07/31/17 [Rx] atorvaSTATin [Lipitor] 10 mg PO BEDTIME #90 tablet 07/31/17 [Rx] Patient Handouts: Steps to Quit Smoking, Myqh-[id number], Chronic Obstructive Pulmonary Disease, [id number]-[id number], Home Oxygen Use, Adult, Heart Attack, Easy-to- Read, Fall Prevention in Hospitals, Adult, Venous Thromboembolism Prevention Referrals: PCP,Unknown [Primary Care Provider] - (7-10 with PCP for outpt coordination of cares and medication reconcile review due to additions and changes; recommend cardiology appointment for recent NSTEMI; recommend outpt echocardiogram. ) - Discharge Summary/Plan Comment DC Time >30 min.: Yes Discharge Summary/Plan Comment: Patient will be discharged to home with home health. She will also go home on continuous oxygen at 2 L/m indefinitely. Order has been written for this. Rx has been written for O2. She will also continue with her SVNs incentive spirometry. I have discontinued her atenolol due to low blood pressure and pulse. This can be addressed outpatient. She did receive 3 days of doses while in-house. I've also started her on a statin, Plavix (which she will take with her aspirin), and Protonix for GI prophylaxis. She was scheduled for an echocardiogram on day of discharge however because of the weather they were unable to perform this. She can have this performed on an outpatient basis. Cardiology follow-up per her PCPs discretion. Strongly advised patient to stop smoking. Recommend she get a parking pass due to cardiopulmonary disease otherwise she is homebound. She does not drive. Home health was recommended she has had several medication changes with regards to discontinuation and additions. Will need to evaluate the home to ensure these are set up an old medications disposed of properly. She will also require evaluation and assessment and teaching regarding her new home O2 therapy and PTOT regarding home safety evaluation secondary to comorbidities and the need for getting around the home with her oxygen. Also work with continued strengthening at their discretion. All questions answered, family and daughter are aware. Patient discharged in fair to good condition. Total time: 90 minutes with greater than 50% spent [id number] with patient and family regarding physical exam, hospital course, follow-up recommendations, medication changes and additions, the need for home health, recommended follow- up appointments and procedures and and other coordination planning ensuring continuity of care. - General Info Date of Service: 07/31/17 Subjective Update: Tells me she is feeling much better and stronger today. she has been getting up to the bathroom and ambulating in the halls with oxygen. She does still have some intermittent cough and shortness of breath with activity. She is being treated for NSTEMI. Denies any chest pain, pressure, neck or jaw or shoulder pain. She's had no nausea or vomiting. No particular headache around her prior laceration. She denies vision changes. She's been afebrile. Denies any sweats or chills. She denies coolness numbness or tingling to the extremities. She denies abdominal pain or difficulty with chewing and swallowing. She is visited by family frequently. no nursing concerns, held atenolol as her bp has been frequently running in the 90-110 /50-62 mmHg. pulse staying in the 60s. Systolic blood pressures have remained greater than 100 and deceleration after discontinuation of beta rosendo. Pulse remains around 60s. Orthostatics improved. Functional Status: Reports: Tolerating Diet, Ambulating, Urinating, Incentive Spirometry - Patient Data Vitals - Most Recent: Last Vital Signs Temp 96.6 F 07/31/17 08:00 Pulse 68 07/31/17 08:00 Resp 20 07/31/17 08:00 BP 110/58 L 07/31/17 08:00 Pulse Ox 93 L 07/31/17 08:00 Orthostatic Blood Pressure [ 106/57 Standing] Orthostatic Blood Pressure [ 100/69 Sitting] Orthostatic Blood Pressure [ 110/58 Supine] Weight - Most Recent: 51.766 kg I&O - Last 24 hours: Intake & Output 07/30/17 07/31/17 07/31/17 22:59 06:59 14:59 Intake Total 200 120 320 Output Total 100 300 200 Balance 100 -180 120 Imaging Impressions - Last 24 hrs: Echocardiogram showed ejection fraction greater than 60% mild diastolic dysfunction. No focal wall abnormalities. No pericardial effusion. No pleural effusion. Slight increase pulmonary hypertension. No significant valvular dysfunction or stenosis. Lab Results - Last 24 hrs: Laboratory Tests 07/26/17 07/26/17 07/26/17 Range/Units 18:35 18:35 18:35 WBC 10.6 (4.5-12.0) X10-3/uL RBC 4.89 (3.23-5.20) x10(6)uL Hgb 15.5 (11.5-15.5) g/dL Hct 46.7 (30.0-51.3) % MCV 95.5 (80-96) fL MCH 31.7 (27.7-33.6) pg MCHC 33.2 (32.2-35.4) g/dL RDW 14.0 (11.5-15.5) % Plt Count 153 (125-369) X10(3)uL MPV 7.8 (7.4-10.4) fL Neut % (Auto) 67.0 (46-82) % Lymph % (Auto) 22.6 (13-37) % [place] % (Auto) 7.9 (4-12) % Eos % (Auto) 2 (1.0-5.0) % Baso % (Auto) 1 (0-2) % Neut # (Auto) 7.1 (1.6-8.3) # Lymph # (Auto) 2.4 (0.6-5.0) # Grant # (Auto) 0.8 (0.0-1.3) # Eos # (Auto) 0.2 (0.0-0.8) # Baso # (Auto) 0.1 (0.0-0.2) # PT (8.7-11.1) INR (0.89-1.13) APTT (24.4-33.2) SECONDS Sodium 141 (135-145) mmol/L Potassium 4.1 (3.5-5.3) mmol/L Chloride 107 (100-110) mmol/L Carbon Dioxide 26 (21-32) mmol/L BUN 24 H (7-18) mg/dL Creatinine 1.2 H (0.55-1.02) mg/dL Est Cr Clr Drug Dosing 23.28 mL/min Estimated GFR (MDRD) 42 L (>60) BUN/Creatinine Ratio 20.0 (9-20) Glucose 132 H (80-116) mg/dL Calcium 9.4 (8.6-10.2) mg/dL Magnesium (1.8-2.5) mg/dL Total Bilirubin 0.4 (0.1-1.3) mg/dL AST 27 H (5-25) IU/L ALT 22 (12-36) U/L Alkaline Phosphatase 63 (56-112) IU/L Troponin I 0.436 H* (<0.017-0.056) ng/mL NT-Pro-B Natriuret Pep (<=450) pg/mL Total Protein 7.3 (6.0-8.0) g/dL Albumin 2.7 L (3.2-4.6) g/dL Globulin 4.6 g/dL Albumin/Globulin Ratio 0.6 Triglycerides (15-150) mg/dL Cholesterol (50-200) mg/dL LDL Cholesterol Direct (60-130) mg/dL HDL Cholesterol (40-75) mg/dL Cholesterol/HDL Ratio (0-5) TSH, Ultra Sensitive (0.36-3.74) IU/mL 07/26/17 07/27/17 07/27/17 Range/Units 20:35 06:15 06:35 WBC (4.5-12.0) X10-3/uL RBC (3.23-5.20) x10(6)uL Hgb (11.5-15.5) g/dL Hct (30.0-51.3) % MCV (80-96) fL MCH (27.7-33.6) pg MCHC (32.2-35.4) g/dL RDW (11.5-15.5) % Plt Count (125-369) X10(3)uL MPV (7.4-10.4) fL Neut % (Auto) (46-82) % Lymph % (Auto) (13-37) % [place] % (Auto) (4-12) % Eos % (Auto) (1.0-5.0) % Baso % (Auto) (0-2) % Neut # (Auto) (1.6-8.3) # Lymph # (Auto) (0.6-5.0) # Grant # (Auto) (0.0-1.3) # Eos # (Auto) (0.0-0.8) # Baso # (Auto) (0.0-0.2) # PT (8.7-11.1) INR (0.89-1.13) APTT (24.4-33.2) SECONDS Sodium 142 (135-145) mmol/L Potassium 4.2 (3.5-5.3) mmol/L Chloride 111 H (100-110) mmol/L Carbon Dioxide 24 (21-32) mmol/L BUN 22 H (7-18) mg/dL Creatinine 1.0 (0.55-1.02) mg/dL Est Cr Clr Drug Dosing 32.50 mL/min Estimated GFR (MDRD) 52 L (>60) BUN/Creatinine Ratio 22.0 H (9-20) Glucose 93 (80-116) mg/dL Calcium 8.3 L (8.6-10.2) mg/dL Magnesium 1.9 (1.8-2.5) mg/dL Total Bilirubin 0.5 (0.1-1.3) mg/dL AST 26 H (5-25) IU/L ALT 19 D (12-36) U/L Alkaline Phosphatase 55 L (56-112) IU/L Troponin I 0.517 H* 0.369 H* (<0.017-0.056) ng/mL NT-Pro-B Natriuret Pep (<=450) pg/mL Total Protein 6.2 (6.0-8.0) g/dL Albumin 2.3 L (3.2-4.6) g/dL Globulin 3.9 g/dL Albumin/Globulin Ratio 0.6 Triglycerides (15-150) mg/dL Cholesterol (50-200) mg/dL LDL Cholesterol Direct (60-130) mg/dL HDL Cholesterol (40-75) mg/dL Cholesterol/HDL Ratio (0-5) TSH, Ultra Sensitive (0.36-3.74) IU/mL 07/27/1718 07/28/17 Range/Units 11:15 11:15 06:15 WBC 11.0 (4.5-12.0) X10-3/uL RBC 4.21 (3.23-5.20) x10(6)uL Hgb 13.6 (11.5-15.5) g/dL Hct 40.5 (30.0-51.3) % MCV 96.1 H (80-96) fL MCH 32.3 (27.7-33.6) pg MCHC 33.7 (32.2-35.4) g/dL RDW 13.7 (11.5-15.5) % Plt Count 122 L (125-369) X10(3)uL MPV (7.4-10.4) fL Neut % (Auto) (46-82) % Lymph % (Auto) (13-37) % [place] % (Auto) (4-12) % Eos % (Auto) (1.0-5.0) % Baso % (Auto) (0-2) % Neut # (Auto) (1.6-8.3) # Lymph # (Auto) (0.6-5.0) # Grant # (Auto) (0.0-1.3) # Eos # (Auto) (0.0-0.8) # Baso # (Auto) (0.0-0.2) # PT 11.5 H (8.7-11.1) INR 1.14 H (0.89-1.13) APTT 25.5 (24.4-33.2) SECONDS Sodium 138 (135-145) mmol/L Potassium 4.3 (3.5-5.3) mmol/L Chloride 107 (100-110) mmol/L Carbon Dioxide 23 (21-32) mmol/L BUN 18 (7-18) mg/dL Creatinine 0.9 (0.55-1.02) mg/dL Est Cr Clr Drug Dosing 36.11 mL/min Estimated GFR (MDRD) 59 L (>60) BUN/Creatinine Ratio 20.0 (9-20) Glucose 84 (80-116) mg/dL Calcium 8.5 L (8.6-10.2) mg/dL Magnesium (1.8-2.5) mg/dL Total Bilirubin (0.1-1.3) mg/dL AST (5-25) IU/L ALT (12-36) U/L Alkaline Phosphatase (56-112) IU/L Troponin I (<0.017-0.056) ng/mL NT-Pro-B Natriuret Pep (<=450) pg/mL Total Protein (6.0-8.0) g/dL Albumin (3.2-4.6) g/dL Globulin g/dL Albumin/Globulin Ratio Triglycerides (15-150) mg/dL Cholesterol (50-200) mg/dL LDL Cholesterol Direct (60-130) mg/dL HDL Cholesterol (40-75) mg/dL Cholesterol/HDL Ratio (0-5) TSH, Ultra Sensitive (0.36-3.74) IU/mL 07/28/17 07/28/17 07/28/17 Range/Units 06:15 06:15 06:15 WBC 10.1 (4.5-12.0) X10-3/uL RBC 4.23 (3.23-5.20) x10(6)uL Hgb 13.7 (11.5-15.5) g/dL Hct 41.2 (30.0-51.3) % MCV 97.4 H (80-96) fL MCH 32.4 (27.7-33.6) pg MCHC 33.3 (32.2-35.4) g/dL RDW 14.0 (11.5-15.5) % Plt Count 127 (125-369) X10(3)uL MPV (7.4-10.4) fL Neut % (Auto) (46-82) % Lymph % (Auto) (13-37) % [place] % (Auto) (4-12) % Eos % (Auto) (1.0-5.0) % Baso % (Auto) (0-2) % Neut # (Auto) (1.6-8.3) # Lymph # (Auto) (0.6-5.0) # Grant # (Auto) (0.0-1.3) # Eos # (Auto) (0.0-0.8) # Baso # (Auto) (0.0-0.2) # PT (8.7-11.1) INR (0.89-1.13) APTT (24.4-33.2) SECONDS Sodium (135-145) mmol/L Potassium (3.5-5.3) mmol/L Chloride (100-110) mmol/L Carbon Dioxide (21-32) mmol/L BUN (7-18) mg/dL Creatinine (0.55-1.02) mg/dL Est Cr Clr Drug Dosing mL/min Estimated GFR (MDRD) (>60) BUN/Creatinine Ratio (9-20) Glucose (80-116) mg/dL Calcium (8.6-10.2) mg/dL Magnesium (1.8-2.5) mg/dL Total Bilirubin (0.1-1.3) mg/dL AST (5-25) IU/L ALT (12-36) U/L Alkaline Phosphatase (56-112) IU/L Troponin I 0.170 H* (<0.017-0.056) ng/mL NT-Pro-B Natriuret Pep 2366 H* (<=450) pg/mL Total Protein (6.0-8.0) g/dL Albumin (3.2-4.6) g/dL Globulin g/dL Albumin/Globulin Ratio Triglycerides (15-150) mg/dL Cholesterol (50-200) mg/dL LDL Cholesterol Direct (60-130) mg/dL HDL Cholesterol (40-75) mg/dL Cholesterol/HDL Ratio (0-5) TSH, Ultra Sensitive (0.36-3.74) IU/mL 07/28/17 07/29/17 07/29/17 Range/Units 06:15 06:19 06:19 WBC (4.5-12.0) X10-3/uL RBC (3.23-5.20) x10(6)uL Hgb (11.5-15.5) g/dL Hct (30.0-51.3) % MCV (80-96) fL MCH (27.7-33.6) pg MCHC (32.2-35.4) g/dL RDW (11.5-15.5) % Plt Count (125-369) X10(3)uL MPV (7.4-10.4) fL Neut % (Auto) (46-82) % Lymph % (Auto) (13-37) % [place] % (Auto) (4-12) % Eos % (Auto) (1.0-5.0) % Baso % (Auto) (0-2) % Neut # (Auto) (1.6-8.3) # Lymph # (Auto) (0.6-5.0) # Grant # (Auto) (0.0-1.3) # Eos # (Auto) (0.0-0.8) # Baso # (Auto) (0.0-0.2) # PT (8.7-11.1) INR (0.89-1.13) APTT (24.4-33.2) SECONDS Sodium 138 (135-145) mmol/L Potassium 3.8 (3.5-5.3) mmol/L Chloride 100 D (100-110) mmol/L Carbon Dioxide 28 (21-32) mmol/L BUN 19 H (7-18) mg/dL Creatinine 1.1 H (0.55-1.02) mg/dL Est Cr Clr Drug Dosing 28.30 mL/min Estimated GFR (MDRD) 47 L (>60) BUN/Creatinine Ratio 17.3 (9-20) Glucose 88 (80-116) mg/dL Calcium 9.3 (8.6-10.2) mg/dL Magnesium (1.8-2.5) mg/dL Total Bilirubin (0.1-1.3) mg/dL AST (5-25) IU/L ALT (12-36) U/L Alkaline Phosphatase (56-112) IU/L Troponin I (<0.017-0.056) ng/mL NT-Pro-B Natriuret Pep 2774 H* (<=450) pg/mL Total Protein (6.0-8.0) g/dL Albumin (3.2-4.6) g/dL Globulin g/dL Albumin/Globulin Ratio Triglycerides 87 (15-150) mg/dL Cholesterol 171 (50-200) mg/dL LDL Cholesterol Direct 105 (60-130) mg/dL HDL Cholesterol 57 (40-75) mg/dL Cholesterol/HDL Ratio 3.0 (0-5) TSH, Ultra Sensitive 0.65 (0.36-3.74) IU/mL 07/30/17 07/31/17 07/31/17 Range/Units 06:10 08:25 08:25 WBC 11.2 (4.5-12.0) X10-3/uL RBC 5.20 (3.23-5.20) x10(6)uL Hgb 16.7 H D (11.5-15.5) g/dL Hct 50.0 (30.0-51.3) % MCV 96.2 H (80-96) fL MCH 32.2 (27.7-33.6) pg MCHC 33.4 (32.2-35.4) g/dL RDW 13.5 (11.5-15.5) % Plt Count 191 (125-369) X10(3)uL MPV (7.4-10.4) fL Neut % (Auto) (46-82) % Lymph % (Auto) (13-37) % Grant % (Auto) (4-12) % Eos % (Auto) (1.0-5.0) % Baso % (Auto) (0-2) % Neut # (Auto) (1.6-8.3) # Lymph # (Auto) (0.6-5.0) # Grant # (Auto) (0.0-1.3) # Eos # (Auto) (0.0-0.8) # Baso # (Auto) (0.0-0.2) # PT (8.7-11.1) INR (0.89-1.13) APTT (24.4-33.2) SECONDS Sodium 137 135 (135-145) mmol/L Potassium 4.0 4.8 (3.5-5.3) mmol/L Chloride 100 100 (100-110) mmol/L Carbon Dioxide 31 31 (21-32) mmol/L BUN 27 H 32 H (7-18) mg/dL Creatinine 1.4 H 1.4 H (0.55-1.02) mg/dL Est Cr Clr Drug Dosing 22.24 22.70 mL/min Estimated GFR (MDRD) 35 L 35 L (>60) BUN/Creatinine Ratio 19.3 22.9 H (9-20) Glucose 95 163 H (80-116) mg/dL Calcium 9.3 9.4 (8.6-10.2) mg/dL Magnesium (1.8-2.5) mg/dL Total Bilirubin 0.4 (0.1-1.3) mg/dL AST 35 H D (5-25) IU/L ALT 27 D (12-36) U/L Alkaline Phosphatase 72 (56-112) IU/L Troponin I (<0.017-0.056) ng/mL NT-Pro-B Natriuret Pep (<=450) pg/mL Total Protein 7.8 (6.0-8.0) g/dL Albumin 2.8 L (3.2-4.6) g/dL Globulin 5.0 g/dL Albumin/Globulin Ratio 0.6 Triglycerides (15-150) mg/dL Cholesterol (50-200) mg/dL LDL Cholesterol Direct (60-130) mg/dL HDL Cholesterol (40-75) mg/dL Cholesterol/HDL Ratio (0-5) TSH, Ultra Sensitive (0.36-3.74) IU/mL 07/31/17 Range/Units 08:25 WBC (4.5-12.0) X10-3/uL RBC (3.23-5.20) x10(6)uL Hgb (11.5-15.5) g/dL Hct (30.0-51.3) % MCV (80-96) fL MCH (27.7-33.6) pg MCHC (32.2-35.4) g/dL RDW (11.5-15.5) % Plt Count (125-369) X10(3)uL MPV (7.4-10.4) fL Neut % (Auto) (46-82) % Lymph % (Auto) (13-37) % Grant % (Auto) (4-12) % Eos % (Auto) (1.0-5.0) % Baso % (Auto) (0-2) % Neut # (Auto) (1.6-8.3) # Lymph # (Auto) (0.6-5.0) # Grant # (Auto) (0.0-1.3) # Eos # (Auto) (0.0-0.8) # Baso # (Auto) (0.0-0.2) # PT (8.7-11.1) INR (0.89-1.13) APTT (24.4-33.2) SECONDS Sodium (135-145) mmol/L Potassium (3.5-5.3) mmol/L Chloride (100-110) mmol/L Carbon Dioxide (21-32) mmol/L BUN (7-18) mg/dL Creatinine (0.55-1.02) mg/dL Est Cr Clr Drug Dosing mL/min Estimated GFR (MDRD) (>60) BUN/Creatinine Ratio (9-20) Glucose (80-116) mg/dL Calcium (8.6-10.2) mg/dL Magnesium (1.8-2.5) mg/dL Total Bilirubin (0.1-1.3) mg/dL AST (5-25) IU/L ALT (12-36) U/L Alkaline Phosphatase (56-112) IU/L Troponin I 0.023 (<0.017-0.056) ng/mL NT-Pro-B Natriuret Pep 325 (<=450) pg/mL Total Protein (6.0-8.0) g/dL Albumin (3.2-4.6) g/dL Globulin g/dL Albumin/Globulin Ratio Triglycerides (15-150) mg/dL Cholesterol (50-200) mg/dL LDL Cholesterol Direct (60-130) mg/dL HDL Cholesterol (40-75) mg/dL Cholesterol/HDL Ratio (0-5) TSH, Ultra Sensitive (0.36-3.74) IU/mL Med Orders - Current: Current Medications Albuterol (Ventolin Hfa) 0 gm INH ASDIRECTED PRN PRN Reason: Wheezing Alprazolam (Xanax) 0.5 mg PO BEDTIME [facility] Last Admin: 07/30/17 20:08 Dose: 0.5 mg Artificial Tears (Liquitears 1.4% Ophth Soln) 0 ml EYEBOTH QID PRN PRN Reason: Dry Eyes Aspirin (Aspirin) 81 mg PO DAILY@1700 [facility] Last Admin: 07/30/17 17:28 Dose: 81 mg Atorvastatin Calcium (Lipitor) 10 mg PO BEDTIME [facility] Last Admin: 07/30/17 20:00 Dose: 10 mg Calcium Carbonate (Calcium Carbonate/Vitamin D 1250 Mg-200 Unit) 1 tab PO BIDMEALS [facility] Last Admin: 07/31/17 08:08 Dose: 1 tab Clopidogrel Bisulfate (Plavix) 75 mg PO DAILY [facility] Last Admin: 07/31/17 08:11 Dose: 75 mg Cyanocobalamin (Vitamin B12) 500 mcg PO DAILY [facility] Last Admin: 07/31/17 08:11 Dose: 500 mcg Enoxaparin Sodium (Lovenox) 30 mg SUBCUT Q24H [facility] Last Admin: 07/31/17 08:10 Dose: 30 mg Fluticasone Propionate (Flonase) 0 gm NASBOTH DAILY [facility] Last Admin: 07/31/17 08:09 Dose: 1 spray Latanoprost (Xalatan 0.005% Ophth Soln) 0 ml EYEBOTH BEDTIME [facility] Last Admin: 07/30/17 20:00 Dose: 1 drop Levothyroxine Sodium (Levothyroxine) 75 mcg PO DAILY@0600 [facility] Last Admin: 07/31/17 05:09 Dose: 75 mcg Loratadine (Claritin) 10 mg PO DAILY@0800 [facility] Last Admin: 07/31/17 08:09 Dose: 10 mg Multivitamins/Minerals/Vitamin C (Tab-A-Blossom) 1 tab PO DAILY [facility] Last Admin: 07/31/17 08:11 Dose: 1 tab Nitroglycerin (Nitrostat) 0.4 mg SL Q5M PRN PRN Reason: Chest Pain Pantoprazole Sodium (Protonix) 40 mg PO BEDTIME [facility] Last Admin: 07/30/17 20:00 Dose: 40 mg Raloxifene HCl (Evista) 60 mg PO DAILY [facility] Last Admin: 07/31/17 08:09 Dose: 60 mg Sodium Chloride (Saline Flush) 10 ml FLUSH ASDIRECTED PRN PRN Reason: Keep Vein Open Last Admin: 07/29/17 00:31 Dose: 10 ml Discontinued Medications Alprazolam (Xanax) 0.5 mg PO DAILY@0800 [facility] Last Admin: 07/29/17 08:24 Dose: 0.5 mg Artificial Tears (Liquitears 1.4% Ophth Soln) 0 ml EYEBOTH QID PRN PRN Reason: Dry Eyes Atenolol (Tenormin) 25 mg PO DAILY [facility] Last Admin: 07/27/17 08:02 Dose: 25 mg Atenolol (Tenormin) 12.5 mg PO DAILY [facility] Last Admin: 07/30/17 11:24 Dose: Not Given Docusate Sodium (Colace) 100 mg PO BID PRN PRN Reason: Constipation Last Admin: 07/26/17 21:12 Dose: 100 mg Enoxaparin Sodium (Lovenox) 53 mg SUBCUT Q12H [facility] Last Admin: 07/29/17 14:42 Dose: Not Given Enoxaparin Sodium (Lovenox) 30 mg SUBCUT Q24H [facility] Stop: 07/31/17 00:01 Furosemide (Lasix) 20 mg IVPUSH Q8H [facility] Stop: 07/29/17 01:01 Last Admin: 07/29/17 00:30 Dose: 20 mg Sodium Chloride (Normal Saline) 1,000 mls @ 100 mls/hr IV ASDIRECTED [facility] Last Admin: 07/27/17 16:28 Dose: 100 mls/hr Latanoprost (Xalatan 0.005% Ophth Soln) 0 ml EYEBOTH BEDTIME [facility] Last Admin: 07/26/17 22:48 Dose: Not Given Levothyroxine Sodium (Levothyroxine) 75 mcg PO ACBREAKFAST [facility] Last Admin: 07/27/17 07:53 Dose: 75 mcg Morphine Sulfate (Morphine) 2 mg IVPUSH Q2H PRN PRN Reason: Pain (severe 7-10) Non-Formulary Medication (Polyvinyl Alcohol/Povidone [Refresh]) 1 drop EYEBOTH ASDIRECTED PRN PRN Reason: Dry Eyes Ondansetron HCl (Zofran Odt) 4 mg PO Q4H PRN PRN Reason: nausea, able to take PO Ondansetron HCl (Zofran) 4 mg IV Q4H PRN PRN Reason: Nausea/Vomiting Temazepam (Restoril) 7.5 mg PO BEDTIME [facility] Last Admin: 07/28/17 21:44 Dose: 7.5 mg - Exam Quality Assessment: Reports: Supplemental Oxygen (2 L nasal cannula) General: Reports: Alert, Oriented, Cooperative, No Acute Distress HEENT: Reports: Mucous Membr. Moist/[place] Neck: Reports: Supple, No JVD Lungs: Reports: Normal Respiratory Effort, Crackles (Fine crackles bilateral lower lobes chronic). Denies: Stridor, Wheezing Cardiovascular: Reports: Regular Rate, Regular Rhythm, No Murmurs GI/Abdominal Exam: Normal Bowel Sounds, Soft, Non-Tender Back Exam: Reports: Normal Inspection Extremities: Non-Tender, No Pedal Edema Skin: Reports: Warm, Dry, Ecchymosis (Noted to the right inner knee secondary to prior fall. No complication. Scalp laceration appropriate healing sutures can come out prior to discharge) Neurological: Reports: No New Focal Deficit, Normal Speech, Strength Equal Bilateral Physical Findings Comments:: She did fail a walking desat study as noted in the chart. She will be discharged with chronic home oxygen therapy at 2 L/m. This has been arranged. Thorough discussion regarding tobacco cessation has been had. She will require home health. *Q Meaningful Use (DIS) - VTE *Q VTE Criteria *Q: - Stroke *Q Stroke Criteria *Q: - AMI *Q AMI Criteria *Q:
== END 2017-07-31 14:35 | disposition home health service (06) | DRG 281 ==
LOC: FB.ED 17:30 → FB.ICU 19:46 → FB.MS 07-27 13:00
PROVIDERS: ADMIT Emergency Medicine; ATTEND Family Medicine
DX: I21.4 Non-ST elevation (NSTEMI) myocardial infarction (principal); I50.1 Left ventricular failure, unspecified; J44.1 Chronic obstructive pulmonary disease with (acute) exacerbation; I25.110 Atherosclerotic heart disease of native coronary artery with unstable angina pectoris; I25.2 Old myocardial infarction; Z95.5 Presence of coronary angioplasty implant and graft; F17.210 Nicotine dependence, cigarettes, uncomplicated; J44.9 Chronic obstructive pulmonary disease, unspecified; W19.XXXA Unspecified fall, initial encounter; Y93.89 Activity, other specified; Y92.009 Unspecified place in unspecified non-institutional (private) residence as the place of occurrence of the external cause; R55 Syncope and collapse; Z91.81 History of falling; E03.9 Hypothyroidism, unspecified; F02.80 Dementia in other diseases classified elsewhere, unspecified severity, without behavioral disturbance, psychotic disturbance, mood disturbance, and anxiety; H40.9 Unspecified glaucoma; H91.90 Unspecified hearing loss, unspecified ear; H54.7 Unspecified visual loss; Z87.01 Personal history of pneumonia (recurrent); F41.1 Generalized anxiety disorder; F32.9 Major depressive disorder, single episode, unspecified; I95.1 Orthostatic hypotension; R00.1 Bradycardia, unspecified; Z79.82 Long term (current) use of aspirin; I50.9 Heart failure, unspecified; Z99.81 Dependence on supplemental oxygen
CPT/HCPCS: 36415; 70450; 71046; 80048; 80053; 80061; 83735; 83880; 84443; 84484; 85025; 85027; 85610; 85730; 93005; 93306; 97161-GP; 99284; 99285; A9270-GY; J1650; J1940; J7030; J7050

== ENCOUNTER 2017-10-10 15:51 | Emergency (ER) | payer MEDICARE, OTHER ==
--- NOTE | 2017-10-10 16:23 | EDM.PDOC ---
ED HPI GENERAL MEDICAL PROBLEM - General Chief Complaint: Head Injury Stated Complaint: FELL,HEAD LACERATION Time Seen by Provider: 10/10/17 16:00 Source of Information: Reports: Patient, Family, Old Records History Limitations: Reports: No Limitations - History of Present Illness INITIAL COMMENTS - FREE TEXT/NARRATIVE: Amin[place] the [place] this afternoon, striking her posterior scalp onto the edge of furniture. There was no LOC. She has had falls in the past. Her tetanus vax status is current. She has a posterior scalp laceration with some minor bleeding. 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) - Related Data Allergies Allergy/AdvReac Type Severity Reaction Status Date / Time No Known Allergies Allergy Verified 10/10/17 16:07 Home Meds: Home Meds Albuterol [Proventil HFA] 2 puff PO ASDIRECTED PRN 07/26/17 [History] Aspirin 81 mg PO 17 07/26/17 [History] Calcium Carbonate/Vitamin D3 [Calcium 600 + Vit D 400 Softgl] 1 tab PO , [History] Cyanocobalamin (Vitamin B12) [Vitamin B12] 500 mcg PO 07/26/17 [History] Fluticasone Propionate [Flovent] 50 mcg NASBOTH DAILY 07/26/17 [History] Latanoprost [Xalatan 0.005% Ophth Soln] 1 drop EYEBOTH DAILY 07/26/17 [History] Levothyroxine 75 mcg PO 07 07/26/17 [History] Loratadine 10 mg PO 08 07/26/17 [History] Multivitamin [Multivitamins] 1 tab PO 08 07/26/17 [History] Raloxifene HCl 60 mg PO 08 07/26/17 [History] Polyvinyl Alcohol/Povidone/Pf [Refresh Classic Eye Drops] 1 drop EYEBOTH ASDIRECTED PRN 07/27/17 [History] ALPRAZolam [Xanax] 0.5 mg PO BEDTIME #0 07/31/17 [Rx] Clopidogrel [Plavix] 75 mg PO DAILY #90 tablet 07/31/17 [Rx] Nitroglycerin 0.4 mg SL Q5M PRN #90 tab.subl 07/31/17 [Rx] Pantoprazole [ProTONIX] 40 mg PO BEDTIME #90 tab.cr 07/31/17 [Rx] atorvaSTATin [Lipitor] 10 mg PO BEDTIME #90 tablet 07/31/17 [Rx] Past Medical History HEENT History: Reports: Glaucoma, Impaired Vision Other HEENT History: dry eyes Cardiovascular History: Reports: Angina, CAD, OR, Syncope Other Cardiovascular History: ? stent Respiratory History: Reports: COPD, Pneumonia, Recurrent, SOB Psychiatric History: Reports: Addiction, Anxiety, Dementia, Depression Endocrine/Metabolic History: Reports: Hypothyroidism - Past Surgical History Cardiovascular Surgical History: Reports: Coronary Artery Stent, Percutaneous Transluminal Angioplasty Musculoskeletal Surgical History: Reports: Other (See Below) Other Musculoskeletal Surgeries/Procedures:: Left foot surgery Social & Family History - Family History Family Medical History: Unobtainable - Tobacco Use Smoking Status *Q: Current Every Day Smoker Years of Tobacco use: 68 Packs/Tins Daily: 4 Used Tobacco, but Quit: No Second Hand Smoke Exposure: No - Caffeine Use Caffeine Use: Reports: Coffee Other Caffeine Use: Pot of coffe per day - Alcohol Use Days Per Week of Alcohol Use: 0 - Recreational Drug Use Recreational Drug Use: No ED ROS GENERAL - Review of Systems Review Of Systems: ROS reveals no pertinent complaints other than HPI. ED EXAM, HEAD INJURY - Physical Exam Exam: See Below Exam Limited By: No Limitations General Appearance: Alert, WD/WN, No Apparent Distress Head: Normocephalic, Scalp Lacerations (4 cm linear laceration overlying occipital scalp), Scalp Tenderness (scalp wound, no step off), Active Bleeding ( minimal from scalp wound) Eyes: Bilateral Eye: EOMI, Normal Inspection, PERRL Ears: Normal External Exam, Normal Canal, Normal TMs, Hearing Loss Nose: Normal Inspection Throat/Mouth: Normal Inspection, Normal Oropharynx, Normal Voice Neck: Non-Tender, Full Range of Motion, Normal Alignment, Normal Inspection Respiratory: Lungs Clear, Normal Breath Sounds, Chest Non-Tender Cardiovascular: Regular Rate, Rhythm, No Murmur Back Exam: Normal Inspection Extremities: Normal Inspection Neurologic: No Motor/Sensory Deficits, Alert, Normal Mood/Affect, Oriented x 3 Skin: Other (scalp wound as annotated) ED LACERATION/WOUND & DEBBIE PROC - Laceration/Wound Repair Left Posterior Occipital Head Lac/wound length in cm: 4 Appearance: Subcutaneous, Linear, Clean Distal NVT: Neuro & Vascular Intact Skin Prep: Chlorhexidine (Hibiciens) Exploration/Debridement/Repair: Wound Explored, No Foreign Material Found Closed with: Giovanny # of Sutures: 6 Sterile Dressing Applied: None Tetanus Status Addressed: Yes Complications: No Course - Vital Signs Text/Narrative:: Patient tolerated procedure well. Last Recorded V/S: Last Vital Signs Temp 38.3 C H 10/10/17 16:08 Pulse 87 10/10/17 16:08 Resp 22 H 10/10/17 16:08 BP 91/37 L 10/10/17 16:08 Pulse Ox 97 10/10/17 16:08 Departure - Departure Time of Disposition: 16:24 Disposition: Home, Self-Care 01 Condition: Good Clinical Impression: Scalp laceration - Discharge Information Referrals: Juan Carlos Haile MD [Primary Care Provider] - - Problem List & Annotations (1) Scalp laceration SNOMED Code(s): 062751017 Code(s): S01.01XA - LACERATION WITHOUT FOREIGN BODY OF SCALP, INITIAL ENCOUNTER Status: Acute Current Visit: Yes Annotation/Comment:: Routine scalp wound cares, and SR in 1 week. - Problem List Review Problem List Initiated/Reviewed/Updated: Yes - Assessment/Plan Plan: Follow up in 1 week for staple removal.
== END 2017-10-10 16:39 | disposition home or self-care (01) ==
LOC: FB.ED 15:51
DX: S01.01XA Laceration without foreign body of scalp, initial encounter (principal); F17.210 Nicotine dependence, cigarettes, uncomplicated; I25.2 Old myocardial infarction; E03.9 Hypothyroidism, unspecified; Z79.899 Other long term (current) drug therapy; Z79.82 Long term (current) use of aspirin; W19.XXXA Unspecified fall, initial encounter; W22.8XXA Striking against or struck by other objects, initial encounter
CPT/HCPCS: 12002; 99282

== ENCOUNTER 2017-10-11 08:54 | Inpatient (IN) | payer MEDICARE, OTHER ==
--- NOTE | 2017-10-11 09:27 | EDM.PDOC ---
ED HPI GENERAL MEDICAL PROBLEM - General Chief Complaint: General Stated Complaint: DIZZY Time Seen by Provider: 10/11/17 09:00 Source of Information: Reports: Patient, Family, Old Records History Limitations: Reports: No Limitations - History of Present Illness INITIAL COMMENTS - FREE TEXT/NARRATIVE: Aminah returns to [facility] ED after falling 2 more times last evening and again this am, discovered by staff at [facility]. She was seen in the ED yesterday for a fall resulting in repair of a 4 cm scalp laceration. She was hospitalized for syncopal episodes in July 2017. Family is concerned for repetitive episodes. 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 She denies headache, chest pain or new onset SOB. She does get lt headiness upon arising, however. Current VS on admission: laying 124/76, sitting 123/67, standing 98/59, VR 96, T 98 deg F, current 02 sat 99%. left arm Pain Score (Numeric/FACES): 4 - Related Data Allergies Allergy/AdvReac Type Severity Reaction Status Date / Time No Known Allergies Allergy Verified 10/11/17 09:39 Home Meds: Home Meds Albuterol [Proventil HFA] 2 puff PO ASDIRECTED PRN 07/26/17 [History] Aspirin 81 mg PO 07/26/17 [History] Calcium Carbonate/Vitamin D3 [Calcium 600 + Vit D 400 Softgl] 1 tab PO , [History] Cyanocobalamin (Vitamin B12) [Vitamin B12] 500 mcg PO 07/26/17 [History] Fluticasone Propionate [Flovent] 50 mcg NASBOTH DAILY 07/26/17 [History] Latanoprost [Xalatan 0.005% Ophth Soln] 1 drop EYEBOTH DAILY 07/26/17 [History] Levothyroxine 75 mcg PO 07 07/26/17 [History] Loratadine 10 mg PO 07/26/17 [History] Multivitamin [Multivitamins] 1 tab PO 07/26/17 [History] Raloxifene HCl 60 mg PO 08 07/26/17 [History] Polyvinyl Alcohol/Povidone/Pf [Refresh Classic Eye Drops] 1 drop EYEBOTH ASDIRECTED PRN 07/27/17 [History] ALPRAZolam [Xanax] 0.5 mg PO BEDTIME #0 07/31/17 [Rx] Clopidogrel [Plavix] 75 mg PO DAILY #90 tablet 07/31/17 [Rx] Nitroglycerin 0.4 mg SL Q5M PRN #90 tab.subl 07/31/17 [Rx] Pantoprazole [ProTONIX] 40 mg PO BEDTIME #90 tab.cr 07/31/17 [Rx] atorvaSTATin [Lipitor] 10 mg PO BEDTIME #90 tablet 07/31/17 [Rx] Past Medical History HEENT History: Reports: Glaucoma, Impaired Vision Other HEENT History: dry eyes Cardiovascular History: Reports: Angina, CAD, CO, SOB on Exertion, Syncope Other Cardiovascular History: ? 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: Psychiatric History: Reports: Addiction, Anxiety, Dementia, Depression Endocrine/Metabolic History: Reports: Hypothyroidism - Infectious Disease History Infectious Disease History: Reports: Chicken Pox - Past Surgical History Cardiovascular Surgical History: Reports: Coronary Artery Stent, Percutaneous Transluminal Angioplasty Musculoskeletal Surgical History: Reports: Other (See Below) Other Musculoskeletal Surgeries/Procedures:: Left foot surgery Social & Family History - Family History Family Medical History: Unobtainable - Tobacco Use Smoking Status *Q: Current Every Day Smoker Years of Tobacco use: 68 Packs/Tins Daily: 4 Used Tobacco, but Quit: No Month/Year Tobacco Last Used: 09/2017 Second Hand Smoke Exposure: No - Caffeine Use Caffeine Use: Reports: Coffee Other Caffeine Use: Pot of coffe per day - Alcohol Use Days Per Week of Alcohol Use: 0 - Recreational Drug Use Recreational Drug Use: No ED ROS GENERAL - Review of Systems Review Of Systems: ROS reveals no pertinent complaints other than HPI. (patient has some dementia, not a reliable historian) ED EXAM, GENERAL - Physical Exam Exam: See Below Exam Limited By: Other (some memory impairments) General Appearance: Alert, WD/WN, No Apparent Distress, Thin Eye Exam: Bilateral Eye: EOMI, Normal Inspection, PERRL Ears: Normal External Exam, Hearing Loss Nose: Normal Inspection Throat/Mouth: Normal Inspection, Normal Oropharynx, Normal Voice, No Airway Compromise Head: Normocephalic, Other (healing laceration of occipital scalp) Neck: Normal Inspection, Supple, Non-Tender Respiratory/Chest: Decreased Breath Sounds, Crackles, Accessory Muscle Use, Prolonged Expiration Cardiovascular: Regular Rate, Rhythm, No Edema, No JVD, No Murmur GI/Abdominal: Normal Bowel Sounds, Soft, Non-Tender, No Organomegaly, No Distention, No Mass (Female) Exam: Deferred Rectal (Female) Exam: Deferred Back Exam: Normal Inspection Extremities: Normal Inspection Neurological: Alert, CN II-XII Intact, No Motor/Sensory Deficits, Confused, Disoriented (knows May, but not day of week or date, though believes she is in [place] at [facility]), Memory Loss Remote Events, Memory Loss Recent Events Psychiatric: Flat Affect Skin Exam: Warm, Dry, Intact Lymphatic: No Adenopathy Course - Vital Signs Text/Narrative:: Following assessment at the [facility] ED, some screening lab work and an ekg were performed; the 12 lead ekg noted NSR, no acute changes; CBC and CMP remained baseline, with Cr 1.1; Troponin I 0.135, BNP 1853, d dimer 4560; I discussed case with hospitalist, and she will be admitted to a monitored bed, with serial ekgs and troponin levels. The Brain MRI is pending. Family is in agreement with treatment plan. Last Recorded V/S: Last Vital Signs Temp 36.9 C 10/11/17 08:55 Pulse 105 H 10/11/17 08:55 Resp 20 10/11/17 08:55 BP 135/75 10/11/17 08:55 Pulse Ox 92 L 10/11/17 08:55 Orthostatic Blood Pressure [ 98/59 Standing] Orthostatic Blood Pressure [ 123/67 Sitting] Orthostatic Blood Pressure [ 124/76 Supine] - Orders/Labs/Meds Orders: Active Orders 24 hr Category Date Time Status Orthostatic Vital Signs [RC] ASDIRECTED Care 10/11/17 09:52 Active Brain wo Cont [MR] Stat Exams 10/11/17 09:30 Ordered UA W/MICROSCOPIC [URIN] Stat Lab 10/11/17 10:12 Ordered EKG 12 Lead [EK] Routine Ther 10/11/17 09:09 Ordered Labs: Laboratory Tests 10/11/17 10/11/17 10/11/17 Range/Units 09:30 09:30 09:30 WBC 9.9 (4.5-12.0) X10-3/uL RBC 4.59 (3.23-5.20) x10(6)uL Hgb 14.8 (11.5-15.5) g/dL Hct 43.8 (30.0-51.3) % MCV 95.3 (80-96) fL MCH 32.3 (27.7-33.6) pg MCHC 33.9 (32.2-35.4) g/dL RDW 13.5 (11.5-15.5) % Plt Count 156 (125-369) X10(3)uL MPV 7.8 (7.4-10.4) fL Add Manual Diff Yes Neutrophils % (Manual) 93 H (46-82) % Lymphocytes % (Manual) 3 L (13-37) % Monocytes % (Manual) 4 (4-12) % D-Dimer, Quantitative 4560 H (100-400) ng/mL ABG pH (7.35-7.45) ABG pCO2 (35-45) mmHg ABG pO2 (83-108) mmHg ABG HCO3 (22-26) mmol/L ABG O2 Saturation (96-97) % ABG Base Excess (-2-2) Caesar Test O2 Delivery Device Sodium 134 L (135-145) mmol/L Potassium 4.4 (3.5-5.3) mmol/L Chloride 101 (100-110) mmol/L Carbon Dioxide 25 (21-32) mmol/L BUN 16 D (7-18) mg/dL Creatinine 1.1 H (0.55-1.02) mg/dL Est Cr Clr Drug Dosing 26.68 mL/min Estimated GFR (MDRD) 47 L (>60) BUN/Creatinine Ratio 14.5 (9-20) Glucose 137 H (80-116) mg/dL Calcium 9.1 (8.6-10.2) mg/dL Total Bilirubin 0.8 (0.1-1.3) mg/dL AST 54 H D (5-25) IU/L ALT 28 (12-36) U/L Alkaline Phosphatase 68 (56-112) IU/L Troponin I (<0.017-0.056) ng/mL NT-Pro-B Natriuret Pep (<=450) pg/mL Total Protein 7.9 (6.0-8.0) g/dL Albumin 3.1 L (3.2-4.6) g/dL Globulin 4.8 g/dL Albumin/Globulin Ratio 0.7 Urine Color (YELLOW) Urine Appearance (CLEAR) Urine pH (5.0-6.5) Ur Specific [place] (1.010-1.025) Urine Protein (NEGATIVE) mg/dL Urine Glucose (UA) (NEGATIVE) mg/dL Urine Ketones (NEGATIVE) mg/dL Urine Occult Blood (NEGATIVE) Urine Nitrite (NEGATIVE) Urine Bilirubin (NEGATIVE) Urine Urobilinogen (NEGATIVE) mg/dL Ur Leukocyte Esterase (NEGATIVE) Urine WBC (0) Ur Squamous Epith Cells (NS,R,O) Urine Bacteria (NS) 10/11/17 10/11/17 10/11/17 Range/Units 09:30 09:40 10:12 WBC (4.5-12.0) X10-3/uL RBC (3.23-5.20) x10(6)uL Hgb (11.5-15.5) g/dL Hct (30.0-51.3) % MCV (80-96) fL MCH (27.7-33.6) pg MCHC (32.2-35.4) g/dL RDW (11.5-15.5) % Plt Count (125-369) X10(3)uL MPV (7.4-10.4) fL Add Manual Diff Neutrophils % (Manual) (46-82) % Lymphocytes % (Manual) (13-37) % Monocytes % (Manual) (4-12) % D-Dimer, Quantitative (100-400) ng/mL ABG pH 7.44 (7.35-7.45) ABG pCO2 31 L (35-45) mmHg ABG pO2 54 L (83-108) mmHg ABG HCO3 20 L (22-26) mmol/L ABG O2 Saturation 89 L (96-97) % ABG Base Excess -2.3 L (-2-2) Caesar Test Passed O2 Delivery Device Nasal cannula Sodium (135-145) mmol/L Potassium (3.5-5.3) mmol/L Chloride (100-110) mmol/L Carbon Dioxide (21-32) mmol/L BUN (7-18) mg/dL Creatinine (0.55-1.02) mg/dL Est Cr Clr Drug Dosing mL/min Estimated GFR (MDRD) (>60) BUN/Creatinine Ratio (9-20) Glucose (80-116) mg/dL Calcium (8.6-10.2) mg/dL Total Bilirubin (0.1-1.3) mg/dL AST (5-25) IU/L ALT (12-36) U/L Alkaline Phosphatase (56-112) IU/L Troponin I 0.135 H* (<0.017-0.056) ng/mL NT-Pro-B Natriuret Pep 1853 H* (<=450) pg/mL Total Protein (6.0-8.0) g/dL Albumin (3.2-4.6) g/dL Globulin g/dL Albumin/Globulin Ratio Urine Color Yellow (YELLOW) Urine Appearance Clear (CLEAR) Urine pH 5.0 (5.0-6.5) Ur Specific [place] 1.025 (1.010-1.025) Urine Protein Negative (NEGATIVE) mg/dL Urine Glucose (UA) Normal (NEGATIVE) mg/dL Urine Ketones 15 H (NEGATIVE) mg/dL Urine Occult Blood Negative (NEGATIVE) Urine Nitrite Negative (NEGATIVE) Urine Bilirubin Negative (NEGATIVE) Urine Urobilinogen Normal (NEGATIVE) mg/dL Ur Leukocyte Esterase Negative (NEGATIVE) Urine WBC 0-5 (0) Ur Squamous Epith Cells Few H (NS,R,O) Urine Bacteria Few H (NS) Departure - Departure Time of Disposition: 10:44 Disposition: Admitted As Inpatient 65 Condition: Fair Clinical Impression: Non-STEMI (non-ST elevated myocardial infarction) COPD (chronic obstructive pulmonary disease) Qualifiers: COPD type: unspecified COPD Qualified Code(s): J44.9 - Chronic obstructive pulmonary disease, unspecified - Discharge Information Referrals: Aminta Swartz NP [Primary Care Provider] - Forms: ED Department Discharge - Problem List & Annotations (1) Non-STEMI (non-ST elevated myocardial infarction) SNOMED Code(s): 673609493 Code(s): I21.4 - NON-ST ELEVATION (NSTEMI) MYOCARDIAL INFARCTION Status: Acute Priority: High Current Visit: Yes Annotation/Comment:: Admit to InPt. (2) COPD (chronic obstructive pulmonary disease) SNOMED Code(s): 32995328 Code(s): J44.9 - CHRONIC OBSTRUCTIVE PULMONARY DISEASE, UNSPECIFIED Status : Chronic Priority: High Current Visit: Yes Annotation/Comment:: Admit to InPt Qualifiers: COPD type: unspecified COPD Qualified Code(s): J44.9 - Chronic obstructive pulmonary disease, unspecified - Problem List Review Problem List Initiated/Reviewed/Updated: Yes - My Orders Last 24 Hours: My Active Orders 10/11/17 09:09 EKG 12 Lead [EK] Routine 10/11/17 09:30 Brain wo Cont [MR] Stat 10/11/17 09:52 Orthostatic Vital Signs [RC] ASDIRECTED 10/11/17 10:12 UA W/MICROSCOPIC [URIN] Stat - Assessment/Plan Last 24 Hours: My Active Orders 10/11/17 09:09 EKG 12 Lead [EK] Routine 10/11/17 09:30 Brain wo Cont [MR] Stat 10/11/17 09:52 Orthostatic Vital Signs [RC] ASDIRECTED 10/11/17 10:12 UA W/MICROSCOPIC [URIN] Stat Plan: Follow up with Hospitalist.
[2017-10-11] MEDS ORDERED: Albuterol 8 GM Inhaler INH PRN (12:10)
[2017-10-11] MEDS ORDERED: Nitroglycerin 0.4 MG Tab.SL SL PRN (12:10)
[2017-10-11] MEDS ORDERED: Albuterol/Ipratropium 3.0-0.5 MG/3 ML Neb Soln NEB PRN (16:19)
[2017-10-11] MEDS ORDERED: Sodium Chloride 0.9% 10 ML Syringe FLUSH PRN (16:19)
--- NOTE | 2017-10-11 16:30 | PCM.HP ---
H&P History of Present Illness - General Date of Service: 10/11/17 Admit Problem/Dx: Admission Diagnosis/Problem Admission Diagnosis/Problem Myocardial infarction Source of Information: Old Records History Limitations: Reports: Altered Mental Status - History of Present Illness Initial Comments - Free Text/Narative: Aminah is an 87-year-old female was found in her room after a fall,at [facility] on the floor unclear how long she was there for. She was seen last night in the ER for a closed head injury ,after another fall ,and had a 4 cm laceration to the scalp.Repaired by a past medical history also includes essential hypertension, cirrhosis, hypothyroidism and glaucoma. [place]. She's confused and therefore challenging in history taking. 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 She denies any chest pains. She complains of feeling dizzy and weak. She was just discharged a month or so ago with syncope and collapse along with presumed non-ST elevation VA treated medically. Her past medical history also includes hypothyroidism, anxiety, essential hypertension, osteoporosis and glaucoma. left arm Pain Score (Numeric/FACES): 4 - Related Data Allergies/Adverse Reactions: Allergies Allergy/AdvReac Type Severity Reaction Status Date / Time No Known Allergies Allergy Verified 10/11/17 09:39 Home Medications: Home Meds Albuterol [Proventil HFA] 2 puff PO ASDIRECTED PRN 07/26/17 [History] Aspirin 81 mg PO 07/26/17 [History] Calcium Carbonate/Vitamin D3 [Calcium 600 + Vit D 400 Softgl] 1 tab PO [History] Cyanocobalamin (Vitamin B12) [Vitamin B12] 500 mcg PO 07/26/17 [History] Latanoprost [Xalatan 0.005% Ophth Soln] 1 drop EYEBOTH DAILY 07/26/17 [History] Levothyroxine 75 mcg PO 07/26/17 [History] Loratadine 10 mg PO 07/26/17 [History] Multivitamin [Multivitamins] 1 tab PO 07/26/17 [History] Raloxifene HCl 60 mg PO 07/26/17 [History] Polyvinyl Alcohol/Povidone/Pf [Refresh Classic Eye Drops] 1 drop EYEBOTH ASDIRECTED PRN 07/27/17 [History] ALPRAZolam [Xanax] 0.5 mg PO BEDTIME #0 07/31/17 [Rx] Clopidogrel [Plavix] 75 mg PO DAILY #90 tablet 07/31/17 [Rx] Nitroglycerin 0.4 mg SL Q5M PRN #90 tab.subl 07/31/17 [Rx] Pantoprazole [ProTONIX] 40 mg PO BEDTIME #90 tab.cr 07/31/17 [Rx] atorvaSTATin [Lipitor] 10 mg PO BEDTIME #90 tablet 07/31/17 [Rx] Fluticasone Propionate [Flonase] 1 spray NASBOTH BID 10/11/17 [History] Past Medical History HEENT History: Reports: Glaucoma, Impaired Vision Other HEENT History: dry eyes Cardiovascular History: Reports: Angina, CAD, VA, SOB on Exertion, Syncope Other Cardiovascular History: ? stent Respiratory History: Reports: COPD, Pneumonia, Recurrent, SOB STILL TENDER History: Reports: Psychiatric History: Reports: Addiction, Anxiety, Dementia, Depression Endocrine/Metabolic History: Reports: Hypothyroidism - Infectious Disease History Infectious Disease History: Reports: Chicken Pox - Past Surgical History Cardiovascular Surgical History: Reports: Coronary Artery Stent, Percutaneous Transluminal Angioplasty Musculoskeletal Surgical History: Reports: Other (See Below) Other Musculoskeletal Surgeries/Procedures:: Left foot surgery Social & Family History - Family History Family Medical History: Unobtainable - Tobacco Use Smoking Status *Q: Never Smoker Years of Tobacco use: 68 Packs/Tins Daily: 4 Used Tobacco, but Quit: No Month/Year Tobacco Last Used: 09/2017 Second Hand Smoke Exposure: No - Caffeine Use Caffeine Use: Reports: Coffee Other Caffeine Use: Pot of coffe per day - Alcohol Use Days Per Week of Alcohol Use: 0 - Recreational Drug Use Recreational Drug Use: No H&P Review of Systems - Review of Systems: Review Of Systems: ROS reveals no pertinent complaints other than HPI. Exam - Exam Exam: See Below - Vital Signs Vital Signs: Last Vital Signs Temp 98.8 F 10/11/17 14:00 Pulse 87 10/11/17 14:00 Resp 28 H 10/11/17 14:00 BP 130/68 10/11/17 14:00 Pulse Ox 94 L 10/11/17 15:00 Orthostatic Blood Pressure [ 98/59 Standing] Orthostatic Blood Pressure [ 123/67 Sitting] Orthostatic Blood Pressure [ 124/76 Supine] Weight: 50.916 kg - Exam Quality Assessment: Supplemental Oxygen General: Alert HEENT: PERRLA Neck: Supple Lungs: Rhonchi, Stridor Cardiovascular: Regular Rate GI/Abdominal Exam: Normal Bowel Sounds, Soft (Female) Exam: Deferred Rectal (Female) Exam: Deferred Back Exam: Normal Inspection, Full Range of Motion, NT Skin: Warm Neurological: Cranial Nerves Intact Neuro Extensive - Mental Status: Alert, Disorientation to Place, Disorientation to Time. No: Oriented x3, Memory Intact Psychiatric: Alert, Normal Affect - Patient Data Lab Results Last 24 hrs: Laboratory Results - last 24 hr 10/11/17 10/11/17 10/11/17 Range/Units 09:30 09:30 09:30 WBC 9.9 (4.5-12.0) X10-3/uL RBC 4.59 (3.23-5.20) x10(6)uL Hgb 14.8 (11.5-15.5) g/dL Hct 43.8 (30.0-51.3) % MCV 95.3 (80-96) fL MCH 32.3 (27.7-33.6) pg MCHC 33.9 (32.2-35.4) g/dL RDW 13.5 (11.5-15.5) % Plt Count 156 (125-369) X10(3)uL MPV 7.8 (7.4-10.4) fL Add Manual Diff Yes Neutrophils % (Manual) 93 H (46-82) % Lymphocytes % (Manual) 3 L (13-37) % Monocytes % (Manual) 4 (4-12) % D-Dimer, Quantitative 4560 H (100-400) ng/mL ABG pH (7.35-7.45) ABG pCO2 (35-45) mmHg ABG pO2 (83-108) mmHg ABG HCO3 (22-26) mmol/L ABG O2 Saturation (96-97) % ABG Base Excess (-2-2) Caesar Test O2 Delivery Device Sodium 134 L (135-145) mmol/L Potassium 4.4 (3.5-5.3) mmol/L Chloride 101 (100-110) mmol/L Carbon Dioxide 25 (21-32) mmol/L BUN 16 D (7-18) mg/dL Creatinine 1.1 H (0.55-1.02) mg/dL Est Cr Clr Drug Dosing 26.68 mL/min Estimated GFR (MDRD) 47 L (>60) BUN/Creatinine Ratio 14.5 (9-20) Glucose 137 H (80-116) mg/dL Calcium 9.1 (8.6-10.2) mg/dL Total Bilirubin 0.8 (0.1-1.3) mg/dL AST 54 H D (5-25) IU/L ALT 28 (12-36) U/L Alkaline Phosphatase 68 (56-112) IU/L Troponin I (<0.017-0.056) ng/mL NT-Pro-B Natriuret Pep (<=450) pg/mL Total Protein 7.9 (6.0-8.0) g/dL Albumin 3.1 L (3.2-4.6) g/dL Globulin 4.8 g/dL Albumin/Globulin Ratio 0.7 Urine Color (YELLOW) Urine Appearance (CLEAR) Urine pH (5.0-6.5) Ur Specific [place] (1.010-1.025) Urine Protein (NEGATIVE) mg/dL Urine Glucose (UA) (NEGATIVE) mg/dL Urine Ketones (NEGATIVE) mg/dL Urine Occult Blood (NEGATIVE) Urine Nitrite (NEGATIVE) Urine Bilirubin (NEGATIVE) Urine Urobilinogen (NEGATIVE) mg/dL Ur Leukocyte Esterase (NEGATIVE) Urine WBC (0) Ur Squamous Epith Cells (NS,R,O) Urine Bacteria (NS) 10/11/17 10/11/17 10/11/17 Range/Units 09:30 09:40 10:12 WBC (4.5-12.0) X10-3/uL RBC (3.23-5.20) x10(6)uL Hgb (11.5-15.5) g/dL Hct (30.0-51.3) % MCV (80-96) fL MCH (27.7-33.6) pg MCHC (32.2-35.4) g/dL RDW (11.5-15.5) % Plt Count (125-369) X10(3)uL MPV (7.4-10.4) fL Add Manual Diff Neutrophils % (Manual) (46-82) % Lymphocytes % (Manual) (13-37) % Monocytes % (Manual) (4-12) % D-Dimer, Quantitative (100-400) ng/mL ABG pH 7.44 (7.35-7.45) ABG pCO2 31 L (35-45) mmHg ABG pO2 54 L (83-108) mmHg ABG HCO3 20 L (22-26) mmol/L ABG O2 Saturation 89 L (96-97) % ABG Base Excess -2.3 L (-2-2) Caesar Test Passed O2 Delivery Device Nasal cannula Sodium (135-145) mmol/L Potassium (3.5-5.3) mmol/L Chloride (100-110) mmol/L Carbon Dioxide (21-32) mmol/L BUN (7-18) mg/dL Creatinine (0.55-1.02) mg/dL Est Cr Clr Drug Dosing mL/min Estimated GFR (MDRD) (>60) BUN/Creatinine Ratio (9-20) Glucose (80-116) mg/dL Calcium (8.6-10.2) mg/dL Total Bilirubin (0.1-1.3) mg/dL AST (5-25) IU/L ALT (12-36) U/L Alkaline Phosphatase (56-112) IU/L Troponin I 0.135 H* (<0.017-0.056) ng/mL NT-Pro-B Natriuret Pep 1853 H* (<=450) pg/mL Total Protein (6.0-8.0) g/dL Albumin (3.2-4.6) g/dL Globulin g/dL Albumin/Globulin Ratio Urine Color Yellow (YELLOW) Urine Appearance Clear (CLEAR) Urine pH 5.0 (5.0-6.5) Ur Specific [place] 1.025 (1.010-1.025) Urine Protein Negative (NEGATIVE) mg/dL Urine Glucose (UA) Normal (NEGATIVE) mg/dL Urine Ketones 15 H (NEGATIVE) mg/dL Urine Occult Blood Negative (NEGATIVE) Urine Nitrite Negative (NEGATIVE) Urine Bilirubin Negative (NEGATIVE) Urine Urobilinogen Normal (NEGATIVE) mg/dL Ur Leukocyte Esterase Negative (NEGATIVE) Urine WBC 0-5 (0) Ur Squamous Epith Cells Few H (NS,R,O) Urine Bacteria Few H (NS) 10/11/17 Range/Units 15:00 WBC (4.5-12.0) X10-3/uL RBC (3.23-5.20) x10(6)uL Hgb (11.5-15.5) g/dL Hct (30.0-51.3) % MCV (80-96) fL MCH (27.7-33.6) pg MCHC (32.2-35.4) g/dL RDW (11.5-15.5) % Plt Count (125-369) X10(3)uL MPV (7.4-10.4) fL Add Manual Diff Neutrophils % (Manual) (46-82) % Lymphocytes % (Manual) (13-37) % Monocytes % (Manual) (4-12) % D-Dimer, Quantitative (100-400) ng/mL ABG pH (7.35-7.45) ABG pCO2 (35-45) mmHg ABG pO2 (83-108) mmHg ABG HCO3 (22-26) mmol/L ABG O2 Saturation (96-97) % ABG Base Excess (-2-2) Caesar Test O2 Delivery Device Sodium (135-145) mmol/L Potassium (3.5-5.3) mmol/L Chloride (100-110) mmol/L Carbon Dioxide (21-32) mmol/L BUN (7-18) mg/dL Creatinine (0.55-1.02) mg/dL Est Cr Clr Drug Dosing mL/min Estimated GFR (MDRD) (>60) BUN/Creatinine Ratio (9-20) Glucose (80-116) mg/dL Calcium (8.6-10.2) mg/dL Total Bilirubin (0.1-1.3) mg/dL AST (5-25) IU/L ALT (12-36) U/L Alkaline Phosphatase (56-112) IU/L Troponin I 0.178 H* (<0.017-0.056) ng/mL NT-Pro-B Natriuret Pep (<=450) pg/mL Total Protein (6.0-8.0) g/dL Albumin (3.2-4.6) g/dL Globulin g/dL Albumin/Globulin Ratio Urine Color (YELLOW) Urine Appearance (CLEAR) Urine pH (5.0-6.5) Ur Specific [place] (1.010-1.025) Urine Protein (NEGATIVE) mg/dL Urine Glucose (UA) (NEGATIVE) mg/dL Urine Ketones (NEGATIVE) mg/dL Urine Occult Blood (NEGATIVE) Urine Nitrite (NEGATIVE) Urine Bilirubin (NEGATIVE) Urine Urobilinogen (NEGATIVE) mg/dL Ur Leukocyte Esterase (NEGATIVE) Urine WBC (0) Ur Squamous Epith Cells (NS,R,O) Urine Bacteria (NS) Result Diagrams: 10/11/17 09:30 10/11/17 09:30 EKG INTERPRETATION EKG Date: 10/11/17 Rhythm: NSR - Problem List (1) Recurrent falls SNOMED Code(s): 708670136 ICD Code: R29.6 - REPEATED FALLS Status: Acute Current Visit: Yes (2) Dizziness SNOMED Code(s): 895941646, 650397900 ICD Code: R42 - DIZZINESS AND GIDDINESS Status: Acute Current Visit: Yes (3) Dyspnea SNOMED Code(s): 651856093 ICD Code: R06.00 - DYSPNEA, UNSPECIFIED Status: Acute Current Visit: Yes Qualifiers: Dyspnea type: shortness of breath Qualified Code(s): R06.02 - Shortness of breath; R06.00 - Dyspnea, unspecified; R06.01 - Orthopnea (4) Elevated troponin SNOMED Code(s): 564257390, 299538102, 970930173 ICD Code: R74.8 - ABNORMAL LEVELS OF OTHER SERUM ENZYMES Status: Acute Current Visit: Yes (5) COPD (chronic obstructive pulmonary disease) SNOMED Code(s): 05519161 ICD Code: J44.9 - CHRONIC OBSTRUCTIVE PULMONARY DISEASE, UNSPECIFIED Status : Acute Current Visit: Yes Qualifiers: COPD type: COPD with acute lower respiratory infection Qualified Code(s): J44.0 - Chronic obstructive pulmonary disease with acute lower respiratory infection (6) Delirium SNOMED Code(s): 9300143 ICD Code: R41.0 - DISORIENTATION, UNSPECIFIED Status: Acute Current Visit : Yes (7) Hypothyroidism SNOMED Code(s): 87276152 ICD Code: E03.9 - HYPOTHYROIDISM, UNSPECIFIED Status: Chronic Current Visit: Yes Qualifiers: Hypothyroidism type: unspecified Qualified Code(s): E03.9 - Hypothyroidism , unspecified (8) Tobacco abuse SNOMED Code(s): 071319143 ICD Code: Z72.0 - TOBACCO USE Status: Chronic Current Visit: Yes (9) Anxiety SNOMED Code(s): 89032385 ICD Code: F41.9 - ANXIETY DISORDER, UNSPECIFIED Status: Chronic Current Visit: Yes (10) Palliative care status SNOMED Code(s): 403873464 ICD Code: Z51.5 - ENCOUNTER FOR PALLIATIVE CARE Status: Chronic Current Visit: Yes (11) Oxygen dependent SNOMED Code(s): 363585118820 ICD Code: Z99.81 - DEPENDENCE ON SUPPLEMENTAL OXYGEN Status: Acute Current Visit: Yes (12) HTN (hypertension) SNOMED Code(s): 54291216 ICD Code: I10 - ESSENTIAL (PRIMARY) HYPERTENSION Status: Acute Current Visit: Yes Qualifiers: Hypertension type: essential hypertension Qualified Code(s): I10 - Essential (primary) hypertension Problem List Initiated/Reviewed/Updated: Yes Orders Last 24hrs: Active Orders 24 hr Category Date Time Status Patient Status [ADT] Routine ADT 10/11/17 11:59 Active Ambulate [RC] 09,13,17,21 Care 10/11/17 11:57 Active Antiembolic Devices [RC] 08,21 Care 10/11/17 11:59 Active Bedrest Bedside Commode [RC] ASDIRECTED Care 10/11/17 16:19 Ordered Height and Weight [RC] DAILY Care 10/11/17 16:19 Ordered Intake and Output [RC] QSHIFT Care 10/11/17 16:19 Ordered Orthostatic Vital Signs [RC] ASDIRECTED Care 10/11/17 09:52 Active Oxygen Therapy [RC] CONTINUOUS Care 10/11/17 11:59 Active Oxygen Therapy [RC] PRN Care 10/11/17 16:19 Ordered Pulse Oximetry [RC] 08,16,00 Care 10/11/17 11:59 Active RT Aerosol Therapy [RC] ASDIRECTED Care 10/11/17 16:20 Ordered VTE/DVT Education [RC] Click to Edit Care 10/11/17 11:59 Active VTE/DVT Education [RC] Per Unit Routine Care 10/11/17 16:19 Ordered Vital Signs [RC] 04,08,12,16,20,00 Care 10/11/17 11:59 Active Vital Signs [RC] Q4H Care 10/11/17 16:19 Ordered OT Evaluation and Treatment [CONS] Routine Cons 10/11/17 16:19 Ordered PT Evaluation and Treatment [CONS] Routine Cons 10/11/17 16:19 Ordered Cardiac Diet [Heart Healthy Diet] [DIET] Diet 10/11/17 Dinner Active Brain wo Cont [MR] Stat Exams 10/11/17 09:30 Taken Chest 1V Frontal [CR] AM Exams 10/12/17 05:11 Ordered BASIC METABOLIC PANEL,BMP [CHEM] AM Lab 10/12/17 05:11 Ordered CBC WITH AUTO DIFF [HEME] AM Lab 10/12/17 05:11 Ordered PRO B-TYPE NATRIUR PEPT,BNPPRO [CHEM] DAILY Lab 10/12/17 05:11 Ordered PRO B-TYPE NATRIUR PEPT,BNPPRO [CHEM] DAILY Lab 10/13/17 05:11 Ordered PRO B-TYPE NATRIUR PEPT,BNPPRO [CHEM] DAILY Lab 10/14/17 05:11 Ordered TROPONIN I [CHEM] AM Lab 10/12/17 05:11 Ordered TSH ULTRASENSITIVE [CHEM] AM Lab 10/12/17 05:11 Ordered UA W/MICROSCOPIC [URIN] Stat Lab 10/11/17 10:12 Ordered Albuterol [Ventolin HFA] Med 10/11/17 12:10 Active 0 gm INH ASDIRECTED PRN Albuterol/Ipratropium [DuoNeb 3.0-0.5 MG/3 ML] Med 10/11/17 16:19 Ordered 3 ml NEB QIDRT PRN Aspirin Med 10/11/17 17:00 Active 81 mg PO 17 Carboxymethylcellulose Sodium [Refresh Tears 0.5%] Med 10/11/17 12:10 Active 0 ml EYEBOTH ASDIRECTED PRN Clopidogrel [Plavix] Med 10/12/17 09:00 Active 75 mg PO DAILY Fluticasone Propionate [Flonase] Med 10/12/17 09:00 Active 0 gm NASBOTH DAILY Latanoprost [Xalatan 0.005% Ophth Soln] Med 10/12/17 09:00 Active 0 ml EYEBOTH DAILY Levothyroxine Med 10/12/17 07:30 Active 75 mcg PO ACBREAKFAST Nitroglycerin [Nitrostat] Med 10/11/17 12:10 Active 0.4 mg SL Q5M PRN Pantoprazole [ProTONIX] Med 10/11/17 21:00 Active 40 mg PO BEDTIME Sodium Chloride 0.9% [Saline Flush] Med 10/11/17 16:19 Ordered 10 ml FLUSH ASDIRECTED PRN atorvaSTATin [Lipitor] Med 10/11/17 21:00 Active 10 mg PO BEDTIME Antiembolic Hose [OM.PC] Routine Oth 10/11/17 11:57 Ordered DVT/VTE Prophylaxis Reflex [OM.PC] Per Unit Routine Oth 10/11/17 11:59 Ordered Saline Lock Insert [OM.PC] Routine Oth 10/11/17 16:19 Ordered Resuscitation Status Routine Resus Stat 10/11/17 11:57 Ordered EKG 12 Lead [EK] Routine Ther 10/11/17 09:09 Ordered EKG 12 Lead [EK] Routine Ther 10/11/17 15:00 Ordered Medication Orders Albuterol (Ventolin Hfa) 0 gm INH ASDIRECTED PRN PRN Reason: Wheezing Albuterol/Ipratropium (Duoneb 3.0-0.5 Mg/3 Ml) 3 ml NEB QIDRT PRN PRN Reason: Wheezing Artificial Tears (Refresh Tears 0.5%) 0 ml EYEBOTH ASDIRECTED PRN PRN Reason: Dry Eyes Aspirin (Aspirin) 81 mg PO 17 KATHY Atorvastatin Calcium (Lipitor) 10 mg PO BEDTIME KATHY Clopidogrel Bisulfate (Plavix) 75 mg PO DAILY KATHY Fluticasone Propionate (Flonase) 0 gm NASBOTH DAILY KATHY Latanoprost (Xalatan 0.005% Ophth Soln) 0 ml EYEBOTH DAILY KATHY Levothyroxine Sodium (Levothyroxine) 75 mcg PO ACBREAKFAST KATHY Nitroglycerin (Nitrostat) 0.4 mg SL Q5M PRN PRN Reason: Chest Pain Pantoprazole Sodium (Protonix) 40 mg PO BEDTIME KATHY Sodium Chloride (Saline Flush) 10 ml FLUSH ASDIRECTED PRN PRN Reason: Keep Vein Open Assessment/Plan Comment:: Patient had an MRI in the ER for which I do not have the official report. We'll continue with oxygen supplementation,telemetry and repeat enzymes and labs in the morning. I've also consulted physical and occupational therapy. She is chest pain-free at this time,but may use nitroglycerin when necessary for any pain. Keep a strict input and output,daily weight,and use SVNs for wheezing and shortness of breath.
[2017-10-11] MEDS ORDERED: Aspirin 81 MG Tab.Chew PO SCH (17:00)
[2017-10-11] MEDS: Acetaminophen 325 MG Tab PO PRN (18:30)
[2017-10-11] MEDS: atorvaSTATin 10 MG Tab PO SCH (20:25)
[2017-10-11] MEDS: Pantoprazole 40 MG Tab.CR PO SCH (20:25)
[2017-10-12] MEDS ORDERED: Levothyroxine 75 MCG Tab PO SCH (07:30)
[2017-10-12] MEDS ORDERED: Latanoprost 0.005% Ophth Soln 2.5 ML Bottle EYEBOTH SCH (09:00)
[2017-10-12] MEDS: Fluticasone Propionate Nasal Spray 16 GM Bottle NASBOTH SCH (09:58)
[2017-10-12] MEDS: Clopidogrel 75 MG Tab PO SCH ×2 (10:00→10:29)
[2017-10-12] MEDS: Carboxymethylcellulose Sodium 0.5% Ophth Soln 15 ML Bottle EYEBOTH PRN (10:02)
--- NOTE | 2017-10-12 10:59 | CR ---
INDICATION: Fever. CHEST: An AP portable upright view of the chest 10/12/2017 was compared with and reveals decreased basilar markings, compared with the previous study. The markings may be on the basis of fibrosis, although patchy pneumonia or recurrent pneumonia - bibasilar - cannot be excluded. Somewhat heavy markings were also noted in the right mid lung field and likely are fibrotic in nature also. A definite consolidating pneumonia or definite effusion was not identified. The heart did not appear enlarged. The aorta is tortuous with calcification in the arch and descending portion. Overlying EKG leads are noted. The lungs appear to be hyperaerated with slightly flattened diaphragm leaves, suggesting the possibility of COPD - correlate clinically. IMPRESSION: 1. No definite acute process but cannot exclude areas of patchy bronchopneumonia in the lung bases and the right mid lung field due to probable pulmonary fibrosis. 2. ASD aorta. 3. COPD. MTDD
--- NOTE | 2017-10-12 13:44 | PCM.PN ---
- General Info Date of Service: 10/12/17 Subjective Update: Patient is a 87-year-old female currently on hospital day #2 for multiple falls at home with elevated troponin. Patient had an MRI done with results available this morning that showed amyloid angiopathy, severe chronic small vessel ischemic sequelae, a possible right thin subdural hematoma unknown age, saccular area 6 mm in the right ICA question aneurysm. The patient herself is feeling well this morning. She's not had any dizziness. No headache. No chest pain. No shortness of breath. No nausea, vomiting, diarrhea. Echocardiogram was done this morning and showed 55% ejection fraction with grade 1 diastolic dysfunction. The patient tells me that she's actually had a number of falls over the past 3- 4 months. She had one that required stitches in the forehead but she's had a number of times from then to now where she is either just slid to the floor or she has gotten dizzy and fallen. She had 3 falls just prior to being admitted. Most recent fall resulted in an occipital laceration 4 cm which was closed with ame and appears to be healing well. Her daughter who is present concurs with this report of frequent falls. Of the recent falls, she feels they were related to tripping over things in her apartment, although one she felt her legs just gave way. Denies LOC. - Patient Data Vitals - Most Recent: Last Vital Signs Temp 36.9 C 10/12/17 08:00 Pulse 86 10/12/17 04:00 Resp 20 10/12/17 12:00 BP 137/71 10/12/17 08:00 Pulse Ox 97 10/12/17 08:00 Orthostatic Blood Pressure [ 98/59 Standing] Orthostatic Blood Pressure [ 123/67 Sitting] Orthostatic Blood Pressure [ 124/76 Supine] Weight - Most Recent: 51.823 kg I&O - Last 24 Hours: Intake & Output 10/11/17 10/12/17 10/12/17 22:59 06:59 14:59 Intake Total 350 200 Output Total 300 Balance 350 -100 Lab Results Last 24 Hours: Laboratory Results - last 24 hr 10/11/17 10/12/17 10/12/17 Range/Units 15:00 06:10 06:10 WBC 9.1 (4.5-12.0) X10-3/uL RBC 4.07 (3.23-5.20) x10(6)uL Hgb 13.6 (11.5-15.5) g/dL Hct 39.4 (30.0-51.3) % MCV 96.9 H (80-96) fL MCH 33.5 (27.7-33.6) pg MCHC 34.6 (32.2-35.4) g/dL RDW 13.2 (11.5-15.5) % Plt Count 132 (125-369) X10(3)uL MPV 8.3 (7.4-10.4) fL Neut % (Auto) 65.6 (46-82) % Lymph % (Auto) 16.2 (13-37) % [place] % (Auto) 13.5 H (4-12) % Eos % (Auto) 5 (1.0-5.0) % Baso % (Auto) 0 (0-2) % Neut # (Auto) 6.0 (1.6-8.3) # Lymph # (Auto) 1.5 (0.6-5.0) # [place] # (Auto) 1.2 (0.0-1.3) # Eos # (Auto) 0.4 (0.0-0.8) # Baso # (Auto) 0.0 (0.0-0.2) # PT (8.7-11.1) INR (0.89-1.13) APTT (24.4-33.2) SECONDS Sodium (135-145) mmol/L Potassium (3.5-5.3) mmol/L Chloride (100-110) mmol/L Carbon Dioxide (21-32) mmol/L Creatinine (0.55-1.02) mg/dL Est Cr Clr Drug Dosing mL/min Estimated GFR (MDRD) (>60) BUN/Creatinine Ratio (9-20) Glucose (80-116) mg/dL Calcium (8.6-10.2) mg/dL Troponin I 0.178 H* 0.100 H* (<0.017-0.056) ng/mL NT-Pro-B Natriuret Pep 1076 H* (<=450) pg/mL TSH, Ultra Sensitive 0.31 L (0.36-3.74) IU/mL 10/12/17 10/12/17 Range/Units 06:10 06:10 WBC (4.5-12.0) X10-3/uL RBC (3.23-5.20) x10(6)uL Hgb (11.5-15.5) g/dL Hct (30.0-51.3) % MCV (80-96) fL MCH (27.7-33.6) pg MCHC (32.2-35.4) g/dL RDW (11.5-15.5) % Plt Count (125-369) X10(3)uL MPV (7.4-10.4) fL Neut % (Auto) (46-82) % Lymph % (Auto) (13-37) % [place] % (Auto) (4-12) % Eos % (Auto) (1.0-5.0) % Baso % (Auto) (0-2) % Neut # (Auto) (1.6-8.3) # Lymph # (Auto) (0.6-5.0) # [place] # (Auto) (0.0-1.3) # Eos # (Auto) (0.0-0.8) # Baso # (Auto) (0.0-0.2) # PT 11.4 H (8.7-11.1) INR 1.13 (0.89-1.13) APTT 26.5 (24.4-33.2) SECONDS Sodium 136 (135-145) mmol/L Potassium 3.8 (3.5-5.3) mmol/L Chloride 103 (100-110) mmol/L Carbon Dioxide 25 (21-32) mmol/L Creatinine 1.1 H (0.55-1.02) mg/dL Est Cr Clr Drug Dosing 26.68 mL/min Estimated GFR (MDRD) 47 L (>60) BUN/Creatinine Ratio 14.5 (9-20) Glucose 103 (80-116) mg/dL Calcium 8.5 L (8.6-10.2) mg/dL Troponin I (<0.017-0.056) ng/mL NT-Pro-B Natriuret Pep (<=450) pg/mL TSH, Ultra Sensitive (0.36-3.74) IU/mL Med Orders - Current: Current Medications Acetaminophen (Tylenol) 650 mg PO Q4H PRN PRN Reason: Headache Last Admin: 10/11/17 18:30 Dose: 650 mg Albuterol (Ventolin Hfa) 0 gm INH ASDIRECTED PRN PRN Reason: Wheezing Albuterol/Ipratropium (Duoneb 3.0-0.5 Mg/3 Ml) 3 ml NEB QIDRT PRN PRN Reason: Wheezing Artificial Tears (Refresh Tears 0.5%) 0 ml EYEBOTH ASDIRECTED PRN PRN Reason: Dry Eyes Last Admin: 10/12/17 10:02 Dose: 1 drop Aspirin (Aspirin) 81 mg PO 17 [facility] Last Admin: 10/11/17 18:28 Dose: 81 mg Atorvastatin Calcium (Lipitor) 10 mg PO BEDTIME [facility] Last Admin: 10/11/17 20:25 Dose: 10 mg Clopidogrel Bisulfate (Plavix) 75 mg PO DAILY [facility] Last Admin: 10/12/17 10:29 Dose: Not Given Fluticasone Propionate (Flonase) 0 gm NASBOTH DAILY [facility] Last Admin: 10/12/17 09:58 Dose: 1 spray Latanoprost (Xalatan 0.005% Ophth Soln) 0 ml EYEBOTH BEDTIME [facility] Levothyroxine Sodium (Levothyroxine) 75 mcg PO ACBREAKFAST [facility] Last Admin: 10/12/17 06:34 Dose: 75 mcg Nitroglycerin (Nitrostat) 0.4 mg SL Q5M PRN PRN Reason: Chest Pain Pantoprazole Sodium (Protonix) 40 mg PO BEDTIME [facility] Last Admin: 10/11/17 20:25 Dose: 40 mg Sodium Chloride (Saline Flush) 10 ml FLUSH ASDIRECTED PRN PRN Reason: Keep Vein Open Discontinued Medications Latanoprost (Xalatan 0.005% Ophth Soln) 0 ml EYEBOTH DAILY [facility] Last Admin: 10/12/17 10:01 Dose: 1 drop - Exam General: Alert, Oriented (to person and place (hospital) although thinks she is in [place]. Not oriented to date or year.), Cooperative HEENT: Pupils Equal, Pupils Reactive Neck: Supple Lungs: Clear to Auscultation, Normal Respiratory Effort Cardiovascular: Regular Rate, Regular Rhythm, No Murmurs GI/Abdominal Exam: Normal Bowel Sounds, Soft, Non-Tender Extremities: No Pedal Edema Skin: Ecchymosis (bruising throughout the upper extremities and the left back flank from fall. Skin lac healing well.) - Problem List & Annotations (1) Subdural hematoma, post-traumatic SNOMED Code(s): 41379366 Code(s): S06.5X9A - TRAUM SUBDR HEM W LOC OF UNSP DURATION, INIT Status: Acute Current Visit: Yes Annotation/Comment:: Without getting a CT hard to say if this is acute or subacute but at this point family and patient agreed that they would pursue no further intervention. Patient already decided with regards to the question of acute myocardial infarction with previous hospitalization the patient would not pursue further intervention in [place] so at this point I feel we will avoid any blood thinners and further falls. No further imaging warranted at this time. (2) Elevated troponin SNOMED Code(s): 754146114, 532835735, 074790105 Code(s): R74.8 - ABNORMAL LEVELS OF OTHER SERUM ENZYMES Status: Acute Current Visit: Yes Annotation/Comment:: Troponin has been mildly increased in the 0.1-0.2 range intermittently since July. I suspect this is more likely related to chronic ischemia but there is no way to prove this. Echocardiogram in July showed EF of 55% with grade 1 diastolic dysfunction but no wall motion abnormalities. Aspirin and Plavix are reasonable treatments for NSTEMI in someone who doesn't want intervention but now that the patient has a subdural and frequent falls I think her increasing bleed risk too high so discussed risk and benefit with patient and family and at this point we are going to hold blood thinners. Comfort cares. Treat only if symptomatic. (3) COPD (chronic obstructive pulmonary disease) SNOMED Code(s): 63350348 Code(s): J44.9 - CHRONIC OBSTRUCTIVE PULMONARY DISEASE, UNSPECIFIED Status : Chronic Priority: High Current Visit: Yes Qualifiers: COPD type: unspecified COPD Qualified Code(s): J44.9 - Chronic obstructive pulmonary disease, unspecified Annotation/Comment:: Oxygen dependent. Monitor. (4) Hypothyroidism SNOMED Code(s): 05027072 Code(s): E03.9 - HYPOTHYROIDISM, UNSPECIFIED Status: Chronic Current Visit: Yes Qualifiers: Hypothyroidism type: unspecified Qualified Code(s): E03.9 - Hypothyroidism , unspecified Annotation/Comment:: TSH slightly low at 0.31 today. Going to decrease her levothyroxine to 50 g. (5) Palliative care status SNOMED Code(s): 156448922 Code(s): Z51.5 - ENCOUNTER FOR PALLIATIVE CARE Status: Acute Current Visit: No Annotation/Comment:: As patient is decided she's not a candidate for intervention, comfort cares will be paramount. If she has pain, control pain with pain medication. Control shortness of breath or chest pain with treatments that can be done noninvasively. (6) Scalp laceration SNOMED Code(s): 191352684 Code(s): S01.01XA - LACERATION WITHOUT FOREIGN BODY OF SCALP, INITIAL ENCOUNTER Status: Acute Current Visit: No Annotation/Comment:: Routine scalp wound cares, and staple removal in 1 week, 10/18/17. (7) DVT prophylaxis SNOMED Code(s): 486699902, 510197800 Code(s): FVT7090 - Status: Acute Current Visit: Yes Annotation/Comment :: SCDs. Ambulation. PT/OT to eval/tx. - Problem List Review Problem List Initiated/Reviewed/Updated: Yes - My Orders Last 24 Hours: My Active Orders 10/12/17 08:00 AMMONIA, PLASMA Routine - Plan Plan:: Discussed goals of care with the patient and her daughter. Patient is a DNR/DNI , and does not want any invasive procedures or transport to [place]. If her head continues to bleed, she would not want any surgery but would rather be made comfortable. If her heart continues to be injured she would not want intervention but rather medical management and comfort cares. Family is looking for placement options for increased care more than [facility].
[2017-10-12] MEDS: atorvaSTATin 10 MG Tab PO SCH (20:00)
[2017-10-12] MEDS: Latanoprost 0.005% Ophth Soln 2.5 ML Bottle EYEBOTH SCH (20:01)
[2017-10-12] MEDS: Pantoprazole 40 MG Tab.CR PO SCH (20:01)
[2017-10-13] MEDS: Acetaminophen 325 MG Tab PO PRN (01:31)
[2017-10-13] MEDS: Levothyroxine 50 MCG Tab PO SCH (08:17)
[2017-10-13] MEDS: Fluticasone Propionate Nasal Spray 16 GM Bottle NASBOTH SCH (08:18)
[2017-10-13] MEDS: Carboxymethylcellulose Sodium 0.5% Ophth Soln 15 ML Bottle EYEBOTH PRN (08:18)
--- NOTE | 2017-10-13 13:00 | PCM.PN ---
- General Info Date of Service: 10/13/17 Subjective Update: Patient feeling well. No headache, no shortness of breath, no chest pain. No nausea or vomiting. Appetite is good. - Patient Data Vitals - Most Recent: Last Vital Signs Temp 36.6 C 10/13/17 08:00 Pulse 89 10/13/17 08:00 Resp 20 10/13/17 08:00 BP 124/70 10/13/17 08:00 Pulse Ox 94 L 10/13/17 08:00 Orthostatic Blood Pressure [ 98/59 Standing] Orthostatic Blood Pressure [ 123/67 Sitting] Orthostatic Blood Pressure [ 124/76 Supine] Weight - Most Recent: 51.165 kg I&O - Last 24 Hours: Intake & Output 10/12/17 10/13/17 10/13/17 22:59 06:59 14:59 Intake Total 500 75 Output Total 200 350 Balance 300 -275 Lab Results Last 24 Hours: Laboratory Results - last 24 hr 10/12/17 10/12/17 10/13/17 Range/Units 06:10 08:00 05:15 BUN 17 (7-18) mg/dL BUN/Creatinine Ratio 15.5 (9-20) Ammonia 47 (19-87) ug/dL NT-Pro-B Natriuret Pep 422 (<=450) pg/mL Med Orders - Current: Current Medications Acetaminophen (Tylenol) 650 mg PO Q4H PRN PRN Reason: Headache Last Admin: 10/13/17 01:31 Dose: 650 mg Albuterol (Ventolin Hfa) 0 gm INH ASDIRECTED PRN PRN Reason: Wheezing Albuterol/Ipratropium (Duoneb 3.0-0.5 Mg/3 Ml) 3 ml NEB QIDRT PRN PRN Reason: Wheezing Artificial Tears (Refresh Tears 0.5%) 0 ml EYEBOTH ASDIRECTED PRN PRN Reason: Dry Eyes Last Admin: 10/13/17 08:18 Dose: 1 drop Atorvastatin Calcium (Lipitor) 10 mg PO BEDTIME [facility] Last Admin: 10/12/17 20:00 Dose: 10 mg Fluticasone Propionate (Flonase) 0 gm NASBOTH DAILY [facility] Last Admin: 10/13/17 08:18 Dose: 1 spray Latanoprost (Xalatan 0.005% Ophth Soln) 0 ml EYEBOTH BEDTIME [facility] Last Admin: 10/12/17 20:01 Dose: 1 drop Levothyroxine Sodium (Synthroid) 50 mcg PO ACBREAKFAST [facility] Last Admin: 10/13/17 08:17 Dose: 50 mcg Nitroglycerin (Nitrostat) 0.4 mg SL Q5M PRN PRN Reason: Chest Pain Pantoprazole Sodium (Protonix) 40 mg PO BEDTIME [facility] Last Admin: 10/12/17 20:01 Dose: 40 mg Sodium Chloride (Saline Flush) 10 ml FLUSH ASDIRECTED PRN PRN Reason: Keep Vein Open Last Admin: 10/12/17 16:51 Dose: 10 ml Discontinued Medications Aspirin (Aspirin) 81 mg PO 17 [facility] Last Admin: 10/11/17 18:28 Dose: 81 mg Clopidogrel Bisulfate (Plavix) 75 mg PO DAILY [facility] Last Admin: 10/12/17 10:29 Dose: Not Given Latanoprost (Xalatan 0.005% Ophth Soln) 0 ml EYEBOTH DAILY [facility] Last Admin: 10/12/17 10:01 Dose: 1 drop Levothyroxine Sodium (Levothyroxine) 75 mcg PO ACBREAKFAST [facility] Last Admin: 10/12/17 06:34 Dose: 75 mcg - Exam General: Alert, Oriented, Cooperative, No Acute Distress HEENT: Pupils Equal, Pupils Reactive Neck: Supple Lungs: Clear to Auscultation, Normal Respiratory Effort Cardiovascular: Regular Rate, Regular Rhythm, No Murmurs GI/Abdominal Exam: Normal Bowel Sounds, Soft, Non-Tender, No Distention Extremities: No Pedal Edema - Problem List & Annotations (1) Subdural hematoma, post-traumatic SNOMED Code(s): 68400397 Code(s): S06.5X9A - TRAUM SUBDR HEM W LOC OF UNSP DURATION, INIT Status: Acute Current Visit: Yes Annotation/Comment:: Clinically stable. No further imaging warranted at this time. No anticoagulants. (2) Elevated troponin SNOMED Code(s): 127479458, 665727869, 980390046 Code(s): R74.8 - ABNORMAL LEVELS OF OTHER SERUM ENZYMES Status: Acute Current Visit: Yes Annotation/Comment:: Troponin has been mildly increased in the 0.1-0.2 range intermittently since July. I suspect this is more likely related to chronic ischemia but there is no way to prove this. Echocardiogram in July showed EF of 55% with grade 1 diastolic dysfunction but no wall motion abnormalities. Aspirin and Plavix are reasonable treatments for NSTEMI in someone who doesn't want intervention but now that the patient has a subdural and frequent falls I think her increasing bleed risk too high so discussed risk and benefit with patient and family and at this point we are going to hold blood thinners. Comfort cares. Treat only if symptomatic. (3) COPD (chronic obstructive pulmonary disease) SNOMED Code(s): 23635373 Code(s): J44.9 - CHRONIC OBSTRUCTIVE PULMONARY DISEASE, UNSPECIFIED Status : Chronic Priority: High Current Visit: Yes Qualifiers: COPD type: unspecified COPD Qualified Code(s): J44.9 - Chronic obstructive pulmonary disease, unspecified Annotation/Comment:: Oxygen dependent. Monitor. (4) Hypothyroidism SNOMED Code(s): 40939437 Code(s): E03.9 - HYPOTHYROIDISM, UNSPECIFIED Status: Chronic Current Visit: Yes Qualifiers: Hypothyroidism type: unspecified Qualified Code(s): E03.9 - Hypothyroidism , unspecified Annotation/Comment:: Levothyroxine decreased to 50 g 10/12/17 for TSH 0.31. (5) Palliative care status SNOMED Code(s): 108136973 Code(s): Z51.5 - ENCOUNTER FOR PALLIATIVE CARE Status: Acute Current Visit: No Annotation/Comment:: As patient is decided she's not a candidate for intervention, comfort cares will be paramount. If she has pain, control pain with pain medication. Control shortness of breath or chest pain with treatments that can be done noninvasively. (6) Scalp laceration SNOMED Code(s): 262971948 Code(s): S01.01XA - LACERATION WITHOUT FOREIGN BODY OF SCALP, INITIAL ENCOUNTER Status: Acute Current Visit: No Annotation/Comment:: Routine scalp wound cares, and staple removal in 1 week, 10/18/17. (7) DVT prophylaxis SNOMED Code(s): 146528829, 335108467 Code(s): IXQ2616 - Status: Acute Current Visit: Yes Annotation/Comment :: SCDs. Ambulation. PT/OT to eval/tx. - Problem List Review Problem List Initiated/Reviewed/Updated: Yes - My Orders Last 24 Hours: My Active Orders 10/12/17 14:30 Activity as Tolerated [RC] .Routine 10/13/17 07:14 Code Status [Resuscitation Status] Routine 10/13/17 07:30 Levothyroxine [Synthroid] 50 mcg PO ACBREAKFAST - Plan Plan:: Discussed goals of care with the patient and her daughter. Patient is a DNR/DNI , and does not want any invasive procedures or transport to [place]. If her head continues to bleed, she would not want any surgery but would rather be made comfortable. If her heart continues to be injured she would not want intervention but rather medical management and comfort cares. Family is looking for placement options for increased care more than [facility].
[2017-10-13] MEDS: atorvaSTATin 10 MG Tab PO SCH (20:31)
[2017-10-13] MEDS: Latanoprost 0.005% Ophth Soln 2.5 ML Bottle EYEBOTH SCH (20:31)
[2017-10-13] MEDS: Pantoprazole 40 MG Tab.CR PO SCH (20:31)
[2017-10-14] MEDS: Acetaminophen 325 MG Tab PO PRN (04:16)
[2017-10-14] MEDS: Levothyroxine 50 MCG Tab PO SCH (06:48)
[2017-10-14] MEDS: Carboxymethylcellulose Sodium 0.5% Ophth Soln 15 ML Bottle EYEBOTH PRN ×2 (07:32→13:01)
[2017-10-14] MEDS: Fluticasone Propionate Nasal Spray 16 GM Bottle NASBOTH SCH (09:12)
--- NOTE | 2017-10-14 09:55 | PCM.PN ---
- General Info Date of Service: 10/14/17 Subjective Update: Patient is an 87-year-old female currently on hospital day #4 for subdural hematoma after falls. Patient has been pleasantly confused. Staff doesn't feel she would be safe on her own as she is very forgetful and tries to get up on her own increasing her risk for more falls. Family is pursuing placement options and hopefully by tomorrow we will have disposition arranged. She's had no chest pain, no shortness of breath, no nausea, no vomiting. She feels well. No headache. - Patient Data Vitals - Most Recent: Last Vital Signs Temp 36.4 C 10/14/17 08:00 Pulse 73 10/14/17 08:00 Resp 16 10/14/17 08:00 BP 123/67 10/14/17 08:00 Pulse Ox 94 L 10/14/17 08:37 Orthostatic Blood Pressure [ 98/59 Standing] Orthostatic Blood Pressure [ 123/67 Sitting] Orthostatic Blood Pressure [ 124/76 Supine] Weight - Most Recent: 51.795 kg I&O - Last 24 Hours: Intake & Output 10/13/17 10/14/17 10/14/17 22:59 06:59 14:59 Intake Total 200 200 Output Total 100 250 Balance -100 -50 200 Lab Results Last 24 Hours: Laboratory Results - last 24 hr 10/12/17 10/14/17 Range/Units 08:00 06:15 Ammonia 47 (19-87) ug/dL NT-Pro-B Natriuret Pep 403 (<=450) pg/mL Med Orders - Current: Current Medications Acetaminophen (Tylenol) 650 mg PO Q4H PRN PRN Reason: Headache Last Admin: 10/14/17 04:16 Dose: 650 mg Albuterol (Ventolin Hfa) 0 gm INH ASDIRECTED PRN PRN Reason: Wheezing Albuterol/Ipratropium (Duoneb 3.0-0.5 Mg/3 Ml) 3 ml NEB QIDRT PRN PRN Reason: Wheezing Artificial Tears (Refresh Tears 0.5%) 0 ml EYEBOTH ASDIRECTED PRN PRN Reason: Dry Eyes Last Admin: 10/14/17 07:32 Dose: 1 drop Atorvastatin Calcium (Lipitor) 10 mg PO BEDTIME [facility] Last Admin: 10/13/17 20:31 Dose: 10 mg Fluticasone Propionate (Flonase) 0 gm NASBOTH DAILY [facility] Last Admin: 10/14/17 09:12 Dose: 1 spray Latanoprost (Xalatan 0.005% Ophth Soln) 0 ml EYEBOTH BEDTIME [facility] Last Admin: 10/13/17 20:31 Dose: 1 drop Levothyroxine Sodium (Synthroid) 50 mcg PO ACBREAKFAST [facility] Last Admin: 10/14/17 06:48 Dose: 50 mcg Nitroglycerin (Nitrostat) 0.4 mg SL Q5M PRN PRN Reason: Chest Pain Pantoprazole Sodium (Protonix) 40 mg PO BEDTIME [facility] Last Admin: 10/13/17 20:31 Dose: 40 mg Sodium Chloride (Saline Flush) 10 ml FLUSH ASDIRECTED PRN PRN Reason: Keep Vein Open Last Admin: 10/12/17 16:51 Dose: 10 ml Discontinued Medications Aspirin (Aspirin) 81 mg PO 17 [facility] Last Admin: 10/11/17 18:28 Dose: 81 mg Clopidogrel Bisulfate (Plavix) 75 mg PO DAILY [facility] Last Admin: 10/12/17 10:29 Dose: Not Given Latanoprost (Xalatan 0.005% Ophth Soln) 0 ml EYEBOTH DAILY [facility] Last Admin: 10/12/17 10:01 Dose: 1 drop Levothyroxine Sodium (Levothyroxine) 75 mcg PO ACBREAKFAST [facility] Last Admin: 10/12/17 06:34 Dose: 75 mcg - Exam General: Alert, Cooperative, No Acute Distress HEENT: Pupils Equal, Pupils Reactive Neck: Supple Lungs: Clear to Auscultation, Normal Respiratory Effort Cardiovascular: Regular Rate, Regular Rhythm, No Murmurs GI/Abdominal Exam: Normal Bowel Sounds, Soft, Non-Tender, No Distention Back Exam: Normal Inspection Extremities: No Pedal Edema Wound/Incisions: Healing Well - Problem List & Annotations (1) Subdural hematoma, post-traumatic SNOMED Code(s): 61299933 Code(s): S06.5X9A - TRAUM SUBDR HEM W LOC OF UNSP DURATION, INIT Status: Acute Current Visit: Yes Annotation/Comment:: Clinically stable. No further imaging warranted at this time. No anticoagulants. (2) Elevated troponin SNOMED Code(s): 300490329, 947666393, 114130244 Code(s): R74.8 - ABNORMAL LEVELS OF OTHER SERUM ENZYMES Status: Acute Current Visit: Yes Annotation/Comment:: Troponin has been mildly increased in the 0.1-0.2 range intermittently since July. I suspect this is more likely related to chronic ischemia but there is no way to prove this. Echocardiogram in July showed EF of 55% with grade 1 diastolic dysfunction but no wall motion abnormalities. Aspirin and Plavix are reasonable treatments for NSTEMI in someone who doesn't want intervention but now that the patient has a subdural and frequent falls I think her increasing bleed risk too high so discussed risk and benefit with patient and family and at this point we are going to hold blood thinners. Comfort cares. Treat only if symptomatic. (3) COPD (chronic obstructive pulmonary disease) SNOMED Code(s): 94623334 Code(s): J44.9 - CHRONIC OBSTRUCTIVE PULMONARY DISEASE, UNSPECIFIED Status : Chronic Priority: High Current Visit: Yes Qualifiers: COPD type: unspecified COPD Qualified Code(s): J44.9 - Chronic obstructive pulmonary disease, unspecified Annotation/Comment:: Oxygen dependent. Monitor. (4) Hypothyroidism SNOMED Code(s): 43459786 Code(s): E03.9 - HYPOTHYROIDISM, UNSPECIFIED Status: Chronic Current Visit: Yes Qualifiers: Hypothyroidism type: unspecified Qualified Code(s): E03.9 - Hypothyroidism , unspecified Annotation/Comment:: Levothyroxine decreased to 50 g 10/12/17 for TSH 0.31. (5) Palliative care status SNOMED Code(s): 121119317 Code(s): Z51.5 - ENCOUNTER FOR PALLIATIVE CARE Status: Acute Current Visit: No Annotation/Comment:: As patient is decided she's not a candidate for intervention, comfort cares will be paramount. If she has pain, control pain with pain medication. Control shortness of breath or chest pain with treatments that can be done noninvasively. (6) Scalp laceration SNOMED Code(s): 762955949 Code(s): S01.01XA - LACERATION WITHOUT FOREIGN BODY OF SCALP, INITIAL ENCOUNTER Status: Acute Current Visit: No Annotation/Comment:: Routine scalp wound cares, and staple removal in 1 week, 10/18/17. (7) DVT prophylaxis SNOMED Code(s): 008220041, 657842906 Code(s): REX6072 - Status: Acute Current Visit: Yes Annotation/Comment :: SCDs. Ambulation. PT/OT to eval/tx. - Problem List Review Problem List Initiated/Reviewed/Updated: Yes - Plan Plan:: Discussed goals of care with the patient and her daughter. Patient is a DNR/DNI , and does not want any invasive procedures or transport to [place]. If her head continues to bleed, she would not want any surgery but would rather be made comfortable. If her heart continues to be injured she would not want intervention but rather medical management and comfort cares. Family is looking for placement options for increased care more than [facility].
[2017-10-14] MEDS: Latanoprost 0.005% Ophth Soln 2.5 ML Bottle EYEBOTH SCH (20:40)
[2017-10-14] MEDS: Pantoprazole 40 MG Tab.CR PO SCH (20:40)
[2017-10-14] MEDS: atorvaSTATin 10 MG Tab PO SCH (20:40)
[2017-10-15] MEDS: Acetaminophen 325 MG Tab PO PRN (00:05)
[2017-10-15] MEDS: Levothyroxine 50 MCG Tab PO SCH (06:48)
[2017-10-15] MEDS: Carboxymethylcellulose Sodium 0.5% Ophth Soln 15 ML Bottle EYEBOTH PRN (09:20)
[2017-10-15] MEDS: Fluticasone Propionate Nasal Spray 16 GM Bottle NASBOTH SCH (09:20)
--- NOTE | 2017-10-15 11:13 | PCM.PN ---
- General Info Date of Service: 10/15/17 Subjective Update: Patient doing very well. Clinically stable. No headaches, no chest pain, no shortness of breath, no nausea, no vomiting, no diarrhea. Still difficult to redirect in terms of using the call light and she has figured out how to take off the bed alarm so high fall risk being monitored closely. - Patient Data Vitals - Most Recent: Last Vital Signs Temp 36.8 C 10/15/17 04:00 Pulse 86 10/15/17 04:00 Resp 19 10/15/17 04:00 BP 132/64 10/15/17 04:00 Pulse Ox 96 10/15/17 04:00 Orthostatic Blood Pressure [ 98/59 Standing] Orthostatic Blood Pressure [ 123/67 Sitting] Orthostatic Blood Pressure [ 124/76 Supine] Weight - Most Recent: 51.664 kg I&O - Last 24 Hours: Intake & Output 10/14/17 10/15/17 10/15/17 22:59 06:59 14:59 Intake Total 50 50 300 Output Total 400 350 150 Balance -350 -300 150 Med Orders - Current: Current Medications Acetaminophen (Tylenol) 650 mg PO Q4H PRN PRN Reason: Headache Last Admin: 10/15/17 00:05 Dose: 650 mg Albuterol (Ventolin Hfa) 0 gm INH ASDIRECTED PRN PRN Reason: Wheezing Albuterol/Ipratropium (Duoneb 3.0-0.5 Mg/3 Ml) 3 ml NEB QIDRT PRN PRN Reason: Wheezing Last Admin: 10/15/17 00:03 Dose: 3 ml Artificial Tears (Refresh Tears 0.5%) 0 ml EYEBOTH ASDIRECTED PRN PRN Reason: Dry Eyes Last Admin: 10/15/17 09:20 Dose: 1 drop Atorvastatin Calcium (Lipitor) 10 mg PO BEDTIME KATHY Last Admin: 10/14/17 20:40 Dose: 10 mg Fluticasone Propionate (Flonase) 0 gm NASBOTH DAILY [facility] Last Admin: 10/15/17 09:20 Dose: 1 spray Latanoprost (Xalatan 0.005% Ophth Soln) 0 ml EYEBOTH BEDTIME KATHY Last Admin: 10/14/17 20:40 Dose: 1 drop Levothyroxine Sodium (Synthroid) 50 mcg PO ACBREAKFAST KATHY Last Admin: 10/15/17 06:48 Dose: 50 mcg Nitroglycerin (Nitrostat) 0.4 mg SL Q5M PRN PRN Reason: Chest Pain Pantoprazole Sodium (Protonix) 40 mg PO BEDTIME [facility] Last Admin: 10/14/17 20:40 Dose: 40 mg Sodium Chloride (Saline Flush) 10 ml FLUSH ASDIRECTED PRN PRN Reason: Keep Vein Open Last Admin: 10/12/17 16:51 Dose: 10 ml Discontinued Medications Aspirin (Aspirin) 81 mg PO 17 [facility] Last Admin: 10/11/17 18:28 Dose: 81 mg Clopidogrel Bisulfate (Plavix) 75 mg PO DAILY [facility] Last Admin: 10/12/17 10:29 Dose: Not Given Latanoprost (Xalatan 0.005% Ophth Soln) 0 ml EYEBOTH DAILY [facility] Last Admin: 10/12/17 10:01 Dose: 1 drop Levothyroxine Sodium (Levothyroxine) 75 mcg PO ACBREAKFAST [facility] Last Admin: 10/12/17 06:34 Dose: 75 mcg - Exam General: Alert, Cooperative, No Acute Distress HEENT: Pupils Equal, Pupils Reactive Neck: Supple Lungs: Clear to Auscultation, Normal Respiratory Effort Cardiovascular: Regular Rate, Regular Rhythm, No Murmurs GI/Abdominal Exam: Normal Bowel Sounds, Soft, Non-Tender, No Distention Extremities: No Pedal Edema Psy/Mental Status: Alert, Normal Mood - Problem List & Annotations (1) Subdural hematoma, post-traumatic SNOMED Code(s): 08251999 Code(s): S06.5X9A - TRAUM SUBDR HEM W LOC OF UNSP DURATION, INIT Status: Acute Current Visit: Yes Annotation/Comment:: Clinically stable. No further imaging warranted at this time. No anticoagulants. (2) Elevated troponin SNOMED Code(s): 911337901, 412865993, 968554435 Code(s): R74.8 - ABNORMAL LEVELS OF OTHER SERUM ENZYMES Status: Acute Current Visit: Yes Annotation/Comment:: Troponin has been mildly increased in the 0.1-0.2 range intermittently since July. I suspect this is more likely related to chronic ischemia but there is no way to prove this. Echocardiogram in July showed EF of 55% with grade 1 diastolic dysfunction but no wall motion abnormalities. Aspirin and Plavix are reasonable treatments for NSTEMI in someone who doesn't want intervention but now that the patient has a subdural and frequent falls I think her increasing bleed risk too high so discussed risk and benefit with patient and family and at this point we are going to hold blood thinners. Comfort cares. Treat only if symptomatic. (3) COPD (chronic obstructive pulmonary disease) SNOMED Code(s): 71318207 Code(s): J44.9 - CHRONIC OBSTRUCTIVE PULMONARY DISEASE, UNSPECIFIED Status : Chronic Priority: High Current Visit: Yes Qualifiers: COPD type: unspecified COPD Qualified Code(s): J44.9 - Chronic obstructive pulmonary disease, unspecified Annotation/Comment:: Oxygen dependent. Monitor. (4) Hypothyroidism SNOMED Code(s): 07817419 Code(s): E03.9 - HYPOTHYROIDISM, UNSPECIFIED Status: Chronic Current Visit: Yes Qualifiers: Hypothyroidism type: unspecified Qualified Code(s): E03.9 - Hypothyroidism , unspecified Annotation/Comment:: Levothyroxine decreased to 50 g 10/12/17 for TSH 0.31. (5) Palliative care status SNOMED Code(s): 041596654 Code(s): Z51.5 - ENCOUNTER FOR PALLIATIVE CARE Status: Acute Current Visit: No Annotation/Comment:: As patient is decided she's not a candidate for intervention, comfort cares will be paramount. If she has pain, control pain with pain medication. Control shortness of breath or chest pain with treatments that can be done noninvasively. Patient ready for discharge to supervised care facility. Discharge is pending disposition. Unable to return home due to lack of supervision and assistance. (6) Scalp laceration SNOMED Code(s): 899422486 Code(s): S01.01XA - LACERATION WITHOUT FOREIGN BODY OF SCALP, INITIAL ENCOUNTER Status: Acute Current Visit: No Annotation/Comment:: Routine scalp wound cares, and staple removal in 1 week, 10/18/17. (7) DVT prophylaxis SNOMED Code(s): 989969778, 922507540 Code(s): UOS8444 - Status: Acute Current Visit: Yes Annotation/Comment :: SCDs. Ambulation. PT/OT to eval/tx. - Problem List Review Problem List Initiated/Reviewed/Updated: Yes - Plan Plan:: Discussed goals of care with the patient and her daughter. Patient is a DNR/DNI , and does not want any invasive procedures or transport to [place]. If her head continues to bleed, she would not want any surgery but would rather be made comfortable. If her heart continues to be injured she would not want intervention but rather medical management and comfort cares. Family is looking for placement options for increased care more than [facility].
[2017-10-15] MEDS ORDERED: Magnesium Hydroxide 400 MG/5 ML Susp 30 ML Cup PO PRN (12:29)
[2017-10-15] MEDS ORDERED: Polyethylene Glycol 3350 Powder 17 GM Packet PO PRN (13:31)
[2017-10-16] MEDS: atorvaSTATin 10 MG Tab PO SCH ×2 (03:37→20:39)
[2017-10-16] MEDS: Latanoprost 0.005% Ophth Soln 2.5 ML Bottle EYEBOTH SCH ×2 (03:38→20:38)
[2017-10-16] MEDS: Pantoprazole 40 MG Tab.CR PO SCH ×2 (03:38→20:39)
[2017-10-16] MEDS: Levothyroxine 50 MCG Tab PO SCH (08:12)
[2017-10-16] MEDS: Fluticasone Propionate Nasal Spray 16 GM Bottle NASBOTH SCH ×4 (08:12→20:38)
[2017-10-16] MEDS: Carboxymethylcellulose Sodium 0.5% Ophth Soln 15 ML Bottle EYEBOTH PRN (08:12)
--- NOTE | 2017-10-16 09:58 | PCM.PN ---
- General Info Date of Service: 10/16/17 Subjective Update: Patient doing well today. No chest pain, no shortness of breath, no nausea or vomiting. Bowels are moving now. She's been up in the room with her therapy and doing well with this. Plan is for discharge to [place] tomorrow. - Patient Data Vitals - Most Recent: Last Vital Signs Temp 36.4 C 10/15/17 12:25 Pulse 78 10/15/17 12:25 Resp 20 10/16/17 03:58 BP 112/56 L 10/15/17 12:25 Pulse Ox 95 10/16/17 03:58 Orthostatic Blood Pressure [ 98/59 Standing] Orthostatic Blood Pressure [ 123/67 Sitting] Orthostatic Blood Pressure [ 124/76 Supine] Weight - Most Recent: 50.122 kg I&O - Last 24 Hours: Intake & Output 10/15/17 10/16/17 10/16/17 22:59 06:59 14:59 Intake Total 300 Output Total 400 Balance -400 300 Med Orders - Current: Current Medications Acetaminophen (Tylenol) 650 mg PO Q4H PRN PRN Reason: Headache Last Admin: 10/15/17 00:05 Dose: 650 mg Albuterol (Ventolin Hfa) 0 gm INH ASDIRECTED PRN PRN Reason: Wheezing Albuterol/Ipratropium (Duoneb 3.0-0.5 Mg/3 Ml) 3 ml NEB QIDRT PRN PRN Reason: Wheezing Last Admin: 10/15/17 00:03 Dose: 3 ml Artificial Tears (Refresh Tears 0.5%) 0 ml EYEBOTH ASDIRECTED PRN PRN Reason: Dry Eyes Last Admin: 10/16/17 08:12 Dose: 1 drop Atorvastatin Calcium (Lipitor) 10 mg PO BEDTIME KATHY Last Admin: 10/16/17 03:37 Dose: Not Given Fluticasone Propionate (Flonase) 0 gm NASBOTH BID KATHY Latanoprost (Xalatan 0.005% Ophth Soln) 0 ml EYEBOTH BEDTIME KATHY Last Admin: 10/16/17 03:38 Dose: Not Given Levothyroxine Sodium (Synthroid) 50 mcg PO ACBREAKFAST KATHY Last Admin: 10/16/17 08:12 Dose: 50 mcg Magnesium Hydroxide (Milk Of Magnesia) 30 ml PO DAILY PRN PRN Reason: Constipation Nitroglycerin (Nitrostat) 0.4 mg SL Q5M PRN PRN Reason: Chest Pain Pantoprazole Sodium (Protonix) 40 mg PO BEDTIME [facility] Last Admin: 10/16/17 03:38 Dose: Not Given Polyethylene Glycol (Miralax) 17 gm PO BEDTIME PRN PRN Reason: Constipation Sodium Chloride (Saline Flush) 10 ml FLUSH ASDIRECTED PRN PRN Reason: Keep Vein Open Last Admin: 10/12/17 16:51 Dose: 10 ml Discontinued Medications Aspirin (Aspirin) 81 mg PO 17 [facility] Last Admin: 10/11/17 18:28 Dose: 81 mg Clopidogrel Bisulfate (Plavix) 75 mg PO DAILY [facility] Last Admin: 10/12/17 10:29 Dose: Not Given Fluticasone Propionate (Flonase) 0 gm NASBOTH DAILY [facility] Last Admin: 10/16/17 08:12 Dose: 1 spray Latanoprost (Xalatan 0.005% Oph Soln) 0 ml EYEBOTH DAILY [facility] Last Admin: 10/12/17 10:01 Dose: 1 drop Levothyroxine Sodium (Levothyroxine) 75 mcg PO ACBREAKFAST [facility] Last Admin: 10/12/17 06:34 Dose: 75 mcg - Exam General: Alert, Cooperative, No Acute Distress HEENT: Pupils Equal, Pupils Reactive Neck: Supple Lungs: Clear to Auscultation, Normal Respiratory Effort Cardiovascular: Regular Rate, Regular Rhythm, No Murmurs Extremities: No Pedal Edema Psy/Mental Status: Alert (Cheerful.) - Problem List & Annotations (1) Subdural hematoma, post-traumatic SNOMED Code(s): 02562921 Code(s): S06.5X9A - TRAUM SUBDR HEM W LOC OF UNSP DURATION, INIT Status: Acute Current Visit: Yes Annotation/Comment:: Clinically stable. No further imaging warranted at this time. No anticoagulants. (2) Elevated troponin SNOMED Code(s): 640715607, 140771542, 742946991 Code(s): R74.8 - ABNORMAL LEVELS OF OTHER SERUM ENZYMES Status: Acute Current Visit: Yes Annotation/Comment:: Troponin has been mildly increased in the 0.1-0.2 range intermittently since July. I suspect this is more likely related to chronic ischemia but there is no way to prove this. Echocardiogram in July showed EF of 55% with grade 1 diastolic dysfunction but no wall motion abnormalities. Aspirin and Plavix are reasonable treatments for NSTEMI in someone who doesn't want intervention but now that the patient has a subdural and frequent falls I think her increasing bleed risk too high so discussed risk and benefit with patient and family and at this point we are going to hold blood thinners. Comfort cares. Treat only if symptomatic. (3) COPD (chronic obstructive pulmonary disease) SNOMED Code(s): 85450648 Code(s): J44.9 - CHRONIC OBSTRUCTIVE PULMONARY DISEASE, UNSPECIFIED Status : Chronic Priority: High Current Visit: Yes Qualifiers: COPD type: unspecified COPD Qualified Code(s): J44.9 - Chronic obstructive pulmonary disease, unspecified Annotation/Comment:: Oxygen dependent. Monitor. (4) Hypothyroidism SNOMED Code(s): 52746232 Code(s): E03.9 - HYPOTHYROIDISM, UNSPECIFIED Status: Chronic Current Visit: Yes Qualifiers: Hypothyroidism type: unspecified Qualified Code(s): E03.9 - Hypothyroidism , unspecified Annotation/Comment:: Levothyroxine decreased to 50 g 10/12/17 for TSH 0.31. (5) Palliative care status SNOMED Code(s): 025000053 Code(s): Z51.5 - ENCOUNTER FOR PALLIATIVE CARE Status: Acute Current Visit: No Annotation/Comment:: As patient is decided she's not a candidate for intervention, comfort cares will be paramount. If she has pain, control pain with pain medication. Control shortness of breath or chest pain with treatments that can be done noninvasively. Patient ready for discharge to supervised care facility. Discharge is pending disposition. Unable to return home due to lack of supervision and assistance. (6) Scalp laceration SNOMED Code(s): 615096538 Code(s): S01.01XA - LACERATION WITHOUT FOREIGN BODY OF SCALP, INITIAL ENCOUNTER Status: Acute Current Visit: No Annotation/Comment:: Routine scalp wound cares, and staple removal in 1 week, 10/18/17. (7) DVT prophylaxis SNOMED Code(s): 448749599, 504628910 Code(s): TOW1581 - Status: Acute Current Visit: Yes Annotation/Comment :: SCDs. Ambulation. PT/OT continues to follow. - Problem List Review Problem List Initiated/Reviewed/Updated: Yes - My Orders Last 24 Hours: My Active Orders 10/15/17 12:29 Magnesium Hydroxide [Milk of Magnesia] 30 ml PO DAILY PRN 10/15/17 13:31 Polyethylene Glycol 3350 [MiraLAX] 17 gm PO BEDTIME PRN 10/16/17 09:00 Fluticasone Propionate [Flonase] 0 gm NASBOTH BID 10/17/17 05:11 BASIC METABOLIC PANEL,BMP [CHEM] AM CBC WITH AUTO DIFF [HEME] AM - Plan Plan:: Discussed goals of care with the patient and her daughter. Patient is a DNR/DNI , and does not want any invasive procedures or transport to [place]. If her head continues to bleed, she would not want any surgery but would rather be made comfortable. If her heart continues to be injured she would not want intervention but rather medical management and comfort cares. Family is looking for placement options for increased care more than [facility].
[2017-10-17] MEDS: Levothyroxine 50 MCG Tab PO SCH ×2 (06:12→06:35)
--- NOTE | 2017-10-17 07:30 | PCM.DCSUM1 ---
Discharge Summary - Hospital Course Free Text/Narrative:: Date of admission: 10/11/2017 Date of discharge: 10/17/2017 Admission diagnosis: Falls at home, possible myocardial infarction. Discharge diagnosis: Falls at home, possibly linked to home use of Xanax. Chronically elevated troponin. Right subdural hematoma. Consults: PT and OT. Procedures: Laceration repair with ame posterior scalp. Snowshoe should be removed 10/18/2017. MRI of the brain done 10/11 showed amyloid angiopathy, severe chronic small vessel ischemic sequelae, right subdural hematoma then, saccular area 6 mm in the right ICA question aneurysm. Echocardiogram done on 10/12/17 showed a 55% ejection fraction with grade 1 diastolic dysfunction. History of present illness: Patient is an 87-year-old female who had a number of falls over the past 3-4 months in her home setting at [facility]. She presented on the day of admission with multiple falls at home. She was found to have an elevated troponin which had also previously been elevated with a prior fall. She was admitted for rule out myocardial infarction and disposition concerns. Hospital course: Clinically, the patient did very well during her hospital stay. She was able to work with physical therapy and occupational therapy, and made good progress with this. She was difficult to keep safe as she wanted to ambulate independently in the room and required redirection frequently to call for nursing help. Was able to remove her bed alarm so was placed in a room with a monitor. After extensive discussion with the patient and the family, patient's CODE STATUS was DNR/DNI/comfort measures. Invasive procedures were recommended against and the goal of medications and further cares should be directed towards comfort, not longevity. Please see below for further details as to individual problems. Discharge instructions: Patient will be discharged to [facility]. She'll follow-up with her primary care provider in a week. Snowshoe can be removed on 03/28. - Discharge Data Discharge Date: 10/17/17 Discharge Disposition: DC/Tfer to [facility] Condition: Stable - Discharge Diagnosis/Problem(s) (1) Subdural hematoma, post-traumatic SNOMED Code(s): 69845474 ICD Code: S06.5X9A - TRAUM SUBDR HEM W LOC OF UNSP DURATION, INIT Status: Acute Current Visit: Yes Problem Details: Clinically stable. No further imaging warranted at this time. No anticoagulants. (2) Elevated troponin SNOMED Code(s): 495496875, 698164338, 236317615 ICD Code: R74.8 - ABNORMAL LEVELS OF OTHER SERUM ENZYMES Status: Acute Current Visit: Yes Problem Details: Troponin has been mildly increased in the 0.1-0.2 range intermittently since July. I suspect this is more likely related to chronic ischemia but there is no way to prove this. Echocardiogram in July showed EF of 55% with grade 1 diastolic dysfunction but no wall motion abnormalities. Aspirin and Plavix are reasonable treatments for NSTEMI in someone who doesn't want intervention but now that the patient has a subdural and frequent falls we are going to hold blood thinners. Comfort cares. Treat only if symptomatic. (3) COPD (chronic obstructive pulmonary disease) SNOMED Code(s): 50563919 ICD Code: J44.9 - CHRONIC OBSTRUCTIVE PULMONARY DISEASE, UNSPECIFIED Status : Chronic Priority: High Current Visit: Yes Problem Details: Oxygen dependent. Continue supportive care. Qualifiers: COPD type: unspecified COPD Qualified Code(s): J44.9 - Chronic obstructive pulmonary disease, unspecified (4) Hypothyroidism SNOMED Code(s): 15711416 ICD Code: E03.9 - HYPOTHYROIDISM, UNSPECIFIED Status: Chronic Current Visit: Yes Problem Details: Levothyroxine decreased to 50 g 10/12/17 for TSH 0.31. Recheck in 3 months (01/12/18 or after). Qualifiers: Hypothyroidism type: unspecified Qualified Code(s): E03.9 - Hypothyroidism , unspecified (5) Palliative care status SNOMED Code(s): 138846836 ICD Code: Z51.5 - ENCOUNTER FOR PALLIATIVE CARE Status: Acute Current Visit: No Problem Details: Patient and family opt for comfort cares. Treat SOB, pain with noninvasive treatments. Discharge to [facility] where patient can have 24 hour supervision in a home setting. (6) Scalp laceration SNOMED Code(s): 711535294 ICD Code: S01.01XA - LACERATION WITHOUT FOREIGN BODY OF SCALP, INITIAL ENCOUNTER Status: Acute Current Visit: No Problem Details: Routine scalp wound cares, and staple removal in 1 week, 10/18/17. (7) DVT prophylaxis SNOMED Code(s): 707350136, 683632740 ICD Code: [id number] - Status: Acute Current Visit: Yes Problem Details: SCDs. Ambulation. PT/OT continues to follow. - Patient Summary/Data Consults: Consultations 10/11/17 16:19 OT Evaluation and Treatment [CONS] Routine Please Evaluate and Treat. OT Reason for Consult: ADL's This query below is only for informational purposes and is not editable. Admission Diagnosis/Problem: Myocardial infarction PT Evaluation and Treatment [CONS] Routine Please Evaluate and Treat. PT Reason for Consult: Ambulation This query below is only for informational purposes and is not editable. Admission Diagnosis/Problem: Myocardial infarction - Patient Instructions Diet: Heart Healthy Diet Activity: As Tolerated Other/Special Instructions: You were admitted to the hospital with a bleed on your brain. You should avoid blood thinners like aspirin, ibuprofen, Plavix, or stronger blood thinners. You were previously on Xanax for sleep. This medication is highly linked to falls in the elderly and should not be continued. Please speak with your primary care physician about alternatives for sleep. Please follow-up with your regular doctor within a week after discharge for recheck. During your hospital stay, we discussed your goals for your medical care. You said that you would like to be kept comfortable and avoid any invasive procedures. Please discuss medications with your primary care provider as some of your medications may be able to be stopped with this goal in mind. - Discharge Plan Prescriptions/Med Rec: Levothyroxine [Synthroid] 50 mcg PO ACBREAKFAST #30 tablet Home Medications: Home Meds Albuterol [Proventil HFA] 2 puff PO ASDIRECTED PRN 07/26/17 [History] Calcium Carbonate/Vitamin D3 [Calcium 600 + Vit D 400 Softgl] 1 tab PO , [History] Cyanocobalamin (Vitamin B12) [Vitamin B12] 500 mcg PO 07/26/17 [History] Latanoprost [Xalatan 0.005% Ophth Soln] 1 drop EYEBOTH BEDTIME 07/26/17 [History ] Loratadine 10 mg PO 07/26/17 [History] Multivitamin [Multivitamins] 1 tab PO 07/26/17 [History] Raloxifene HCl 60 mg PO 07/26/17 [History] Polyvinyl Alcohol/Povidone/Pf [Refresh Classic Eye Drops] 1 drop EYEBOTH ASDIRECTED PRN 07/27/17 [History] Nitroglycerin 0.4 mg SL Q5M PRN #90 tab.subl 07/31/17 [Rx] Pantoprazole [ProTONIX] 40 mg PO BEDTIME #90 tab.cr 07/31/17 [Rx] atorvaSTATin [Lipitor] 10 mg PO BEDTIME #90 tablet 07/31/17 [Rx] Fluticasone Propionate [Flonase] 1 spray NASBOTH BID 10/11/17 [History] Acetaminophen [Tylenol] 650 mg PO Q4H PRN tablet 10/17/17 [Rx] Levothyroxine [Synthroid] 50 mcg PO ACBREAKFAST #30 tablet 10/17/17 [Rx] Magnesium Hydroxide [Milk of Magnesia] 30 ml PO DAILY PRN cup 10/17/17 [Rx] Polyethylene Glycol 3350 [MiraLAX] 17 gm PO BEDTIME PRN packet 10/17/17 [Rx] Patient Handouts: Fall Prevention in Hospitals, Adult Forms: ED Department Discharge Referrals: Aminta Swartz NP [Primary Care Provider] - - General Info Date of Service: 10/17/17 Subjective Update: Date of discharge, patient was feeling well. No complaints. No chest pain, no shortness of breath, no cough, no nausea or vomiting. No diarrhea. Anxious to be discharged. - Patient Data Vitals - Most Recent: Last Vital Signs Temp 36.2 C 10/17/17 04:00 Pulse 78 10/17/17 04:00 Resp 18 10/17/17 04:00 BP 104/62 10/17/17 04:00 Pulse Ox 93 L 10/17/17 04:00 Orthostatic Blood Pressure [ 98/59 Standing] Orthostatic Blood Pressure [ 123/67 Sitting] Orthostatic Blood Pressure [ 124/76 Supine] Weight - Most Recent: 50.009 kg I&O - Last 24 hours: Intake & Output 10/16/17 10/17/17 10/17/17 22:59 06:59 14:59 Intake Total 200 Output Total 250 550 Balance -250 -350 Lab Results - Last 24 hrs: Laboratory Results - last 24 hr 10/17/17 10/17/17 Range/Units 06:07 06:07 WBC 12.2 H (4.5-12.0) X10-3/uL RBC 4.09 (3.23-5.20) x10(6)uL Hgb 13.4 (11.5-15.5) g/dL Hct 39.5 (30.0-51.3) % MCV 96.6 H (80-96) fL MCH 32.7 (27.7-33.6) pg MCHC 33.9 (32.2-35.4) g/dL RDW 12.9 (11.5-15.5) % Plt Count 225 (125-369) X10(3)uL MPV 7.9 (7.4-10.4) fL Neut % (Auto) 69.4 (46-82) % Lymph % (Auto) 16.3 (13-37) % [place] % (Auto) 11.1 (4-12) % Eos % (Auto) 3 (1.0-5.0) % Baso % (Auto) 0 (0-2) % Neut # (Auto) 8.4 H (1.6-8.3) # Lymph # (Auto) 2.0 (0.6-5.0) # [place] # (Auto) 1.3 (0.0-1.3) # Eos # (Auto) 0.4 (0.0-0.8) # Baso # (Auto) 0.0 (0.0-0.2) # Sodium 133 L (135-145) mmol/L Potassium 4.6 (3.5-5.3) mmol/L Chloride 100 (100-110) mmol/L Carbon Dioxide 26 (21-32) mmol/L BUN 17 (7-18) mg/dL Creatinine 1.2 H (0.55-1.02) mg/dL Est Cr Clr Drug Dosing 24.45 mL/min Estimated GFR (MDRD) 42 L (>60) BUN/Creatinine Ratio 14.2 (9-20) Glucose 92 (80-116) mg/dL Calcium 8.8 (8.6-10.2) mg/dL Med Orders - Current: Current Medications Acetaminophen (Tylenol) 650 mg PO Q4H PRN PRN Reason: Headache Last Admin: 10/15/17 00:05 Dose: 650 mg Albuterol (Ventolin Hfa) 0 gm INH ASDIRECTED PRN PRN Reason: Wheezing Albuterol/Ipratropium (Duoneb 3.0-0.5 Mg/3 Ml) 3 ml NEB QIDRT PRN PRN Reason: Wheezing Last Admin: 10/15/17 00:03 Dose: 3 ml Artificial Tears (Refresh Tears 0.5%) 0 ml EYEBOTH ASDIRECTED PRN PRN Reason: Dry Eyes Last Admin: 10/16/17 08:12 Dose: 1 drop Atorvastatin Calcium (Lipitor) 10 mg PO BEDTIME [facility] Last Admin: 10/16/17 20:39 Dose: 10 mg Fluticasone Propionate (Flonase) 0 gm NASBOTH BID [facility] Last Admin: 10/16/17 20:38 Dose: 1 spray Latanoprost (Xalatan 0.005% Ophth Soln) 0 ml EYEBOTH BEDTIME [facility] Last Admin: 10/16/17 20:38 Dose: 1 drop Levothyroxine Sodium (Synthroid) 50 mcg PO ACBREAKFAST [facility] Last Admin: 10/17/17 06:35 Dose: Not Given Magnesium Hydroxide (Milk Of Magnesia) 30 ml PO DAILY PRN PRN Reason: Constipation Last Admin: 10/15/17 13:15 Dose: 30 ml Nitroglycerin (Nitrostat) 0.4 mg SL Q5M PRN PRN Reason: Chest Pain Pantoprazole Sodium (Protonix) 40 mg PO BEDTIME [facility] Last Admin: 10/16/17 20:39 Dose: 40 mg Polyethylene Glycol (Miralax) 17 gm PO BEDTIME PRN PRN Reason: Constipation Sodium Chloride (Saline Flush) 10 ml FLUSH ASDIRECTED PRN PRN Reason: Keep Vein Open Last Admin: 10/12/17 16:51 Dose: 10 ml Discontinued Medications Aspirin (Aspirin) 81 mg PO 17 [facility] Last Admin: 10/11/17 18:28 Dose: 81 mg Clopidogrel Bisulfate (Plavix) 75 mg PO DAILY [facility] Last Admin: 10/12/17 10:29 Dose: Not Given Fluticasone Propionate (Flonase) 0 gm NASBOTH DAILY [facility] Last Admin: 10/16/17 08:12 Dose: 1 spray Latanoprost (Xalatan 0.005% Ophth Soln) 0 ml EYEBOTH DAILY [facility] Last Admin: 10/12/17 10:01 Dose: 1 drop Levothyroxine Sodium (Levothyroxine) 75 mcg PO ACBREAKFAST [facility] Last Admin: 10/12/17 06:34 Dose: 75 mcg Comments:: Patient had a slight increase in her white count the day of discharge. She no signs of focal infection. Will just need to monitor for signs of infection. - Exam General: Reports: Alert, Cooperative, No Acute Distress HEENT: Reports: Pupils Equal, Pupils Reactive Neck: Reports: Supple Lungs: Reports: Clear to Auscultation, Normal Respiratory Effort Cardiovascular: Reports: Regular Rate, Regular Rhythm GI/Abdominal Exam: Normal Bowel Sounds, Soft, Non-Tender, No Distention Extremities: No Pedal Edema Psy/Mental Status: Reports: Alert
[2017-10-17] MEDS: Carboxymethylcellulose Sodium 0.5% Ophth Soln 15 ML Bottle EYEBOTH PRN (08:02)
[2017-10-17] MEDS: Fluticasone Propionate Nasal Spray 16 GM Bottle NASBOTH SCH (08:03)
== END 2017-10-17 08:40 | DRG 84 ==
LOC: FB.ED 08:54 → FB.MS 10:47 → FB.ICU 11:08 → FB.MS 10-12 14:32
PROVIDERS: ADMIT Family Medicine; ATTEND Family Medicine
DX: S06.5X9A Traumatic subdural hemorrhage with loss of consciousness of unspecified duration, initial encounter (principal); W19.XXXA Unspecified fall, initial encounter; Y92.009 Unspecified place in unspecified non-institutional (private) residence as the place of occurrence of the external cause; Z51.5 Encounter for palliative care; Z66 Do not resuscitate; J44.9 Chronic obstructive pulmonary disease, unspecified; F17.210 Nicotine dependence, cigarettes, uncomplicated; E03.9 Hypothyroidism, unspecified; Z99.81 Dependence on supplemental oxygen; R29.6 Repeated falls; Z91.81 History of falling; R74.8 Abnormal levels of other serum enzymes; R42 Dizziness and giddiness; R41.0 Disorientation, unspecified; I25.119 Atherosclerotic heart disease of native coronary artery with unspecified angina pectoris; I25.2 Old myocardial infarction; Z95.5 Presence of coronary angioplasty implant and graft; H40.9 Unspecified glaucoma; H04.129 Dry eye syndrome of unspecified lacrimal gland; F32.9 Major depressive disorder, single episode, unspecified; F41.9 Anxiety disorder, unspecified; Z87.01 Personal history of pneumonia (recurrent); H54.7 Unspecified visual loss
CPT/HCPCS: 36415; 36600; 70551; 71045; 80048; 80053; 81001; 82140; 82803; 83880; 84443; 84484; 85025; 85379; 85610; 85730; 93005; 93010; 97161-GP; 97165-GO; 99284; 99285; A9270-GY; J7050; J7620

== ENCOUNTER 2018-06-25 11:21 | Emergency (ER) | payer MEDICAID, MEDICARE, OTHER ==
--- NOTE | 2018-06-25 13:51 | CT ---
INDICATION: Severe reproducible pain at T50--[id number] onset of the pain. No history of trauma. THORACIC SPINE CT: Computerized tomography of the thoracic spine without contrast. Spiral 2.5 axial sections were obtained through the thoracic spine with sagittal and coronal reconstructions. Total exam DLP = 249.37 mGy-cm. Decreased bone density is noted compatible with osteoporosis. Degenerative disc disease is noted at multiple levels and is most severe at T11- 12 or T7-8, T8-9, T2-3, and T3-4. The disc spaces are narrowed at those levels with sclerosis and varying degrees of subchondral cystic changes, the most severe subchondral cystic changes appears to be at T11-12 with some vacuum disc phenomenon--extending into the epidural space and possibly the spinal canal at T11-12. This could represent an acute process but should be correlated clinically. No evidence of a definite acute fracture site is identified. Minimal compression at T8 likely is chronic. It appears to have been present on the previous examination--chest x-ray from 07/28/17. The heart appears enlarged with coronary artery calcifications. Bilateral heavy markings are noted with emphysematous changes noted to a moderately severe degree. The possibility of pneumonia superimposed on these areas of fibrosis especially at the lung bases cannot be excluded. IMPRESSION: 1. 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 No acute thoracic spine fracture site is identified. 2. ASHD with cardiomegaly. 3. Pulmonary emphysema. 4. Pulmonary fibrosis with the possibility of superimposed patchy pneumonia especially at the lung bases. Report was called to Dr. Luz at 1308 hours [facility]
--- NOTE | 2018-06-25 13:51 | EDM.PDOC ---
ED HPI GENERAL MEDICAL PROBLEM - General Chief Complaint: Skin Complaint Stated Complaint: SORE ON LOWER BACK Time Seen by Provider: 06/25/18 11:30 Source of Information: Reports: Patient, Other (2 daughters and son are excellent historians) History Limitations: Reports: No Limitations - History of Present Illness INITIAL COMMENTS - FREE TEXT/NARRATIVE: This pleasant 88-year-old woman with history of chronic obstructive lung disease , myocardial infarction, previous cardiovascular stents, glaucoma, decreased hearing, treated hypertension, anxiety disorder, subdural hematoma, CHF, dementia, and deconditioning secondary to get up and walk, place and bed most of the time, lives at [facility] because of her dementia and complains of her back hurting for a long time. More recently back pain is increased and the daughters brought her in for further evaluation of her low back pain. She uses a walker intermittently but that has diminished recently. Last falls approximately 2 years ago. No history of fracture at that time. back Pain Score (Numeric/FACES): 8 - Related Data Allergies Allergy/AdvReac Type Severity Reaction Status Date / Time No Known Allergies Allergy Verified 06/25/18 13:38 Home Meds: Home Meds Albuterol [Proventil HFA] 2 puff PO ASDIRECTED PRN 07/26/17 [History] Calcium Carbonate/Vitamin D3 [Calcium 600 + Vit D 400 Softgl] 1 tab PO [History] Cyanocobalamin (Vitamin B12) [Vitamin B12] 500 mcg PO 08 07/26/17 [History] Latanoprost [Xalatan 0.005% Ophth Soln] 1 drop EYEBOTH BEDTIME 07/26/17 [History ] Loratadine 10 mg PO 08 07/26/17 [History] Multivitamin [Multivitamins] 1 tab PO 08 07/26/17 [History] Raloxifene HCl 60 mg PO 08 07/26/17 [History] Polyvinyl Alcohol/Povidone/Pf [Refresh Classic Eye Drops] 1 drop EYEBOTH ASDIRECTED PRN 07/27/17 [History] Nitroglycerin 0.4 mg SL Q5M PRN #90 tab.subl 07/31/17 [Rx] Pantoprazole [ProTONIX] 40 mg PO BEDTIME #90 tab.cr 07/31/17 [Rx] atorvaSTATin [Lipitor] 10 mg PO BEDTIME #90 tablet 07/31/17 [Rx] Fluticasone Propionate [Flonase] 1 spray NASBOTH BID 10/11/17 [History] Acetaminophen [Tylenol] 650 mg PO Q4H PRN tablet 10/17/17 [Rx] Levothyroxine [Synthroid] 50 mcg PO ACBREAKFAST #30 tablet 10/17/17 [Rx] Magnesium Hydroxide [Milk of Magnesia] 30 ml PO DAILY PRN cup 10/17/17 [Rx] Polyethylene Glycol 3350 [MiraLAX] 17 gm PO BEDTIME PRN packet 10/17/17 [Rx] Past Medical History HEENT History: Reports: Glaucoma, Impaired Vision Other HEENT History: dry eyes Cardiovascular History: Reports: Angina, CAD, ND, SOB on Exertion, Syncope Other Cardiovascular History: ? stent Respiratory History: Reports: COPD, Pneumonia, Recurrent, SOB AOC [employer] History: Reports: Psychiatric History: Reports: Addiction, Anxiety, Dementia, Depression Endocrine/Metabolic History: Reports: Hypothyroidism - Infectious Disease History Infectious Disease History: Reports: Chicken Pox - Past Surgical History Cardiovascular Surgical History: Reports: Coronary Artery Stent, Percutaneous Transluminal Angioplasty Musculoskeletal Surgical History: Reports: Other (See Below) Other Musculoskeletal Surgeries/Procedures:: Left foot surgery Social & Family History - Family History Family Medical History: Unobtainable - Caffeine Use Caffeine Use: Reports: Coffee Other Caffeine Use: Pot of coffe per day ED ROS GENERAL - Review of Systems Review Of Systems: See Below Constitutional: Reports: Other (She appears to be quite third and communicative but she is forgetful. This is both assessed by her placement in the dementia [facility] in [place]..) Respiratory: Reports: Other (Chronic COPD and on oxygen therapy or nasal cannula.) Endocrine: Reports: No Symptoms GI/Abdominal: Reports: No Symptoms : Reports: No Symptoms, Incontinence, Other (History of mild intermittent occasional incontinence) Musculoskeletal: Reports: Back Pain Skin: Reports: Other (She has been treated for an "infection" to the left of spinous processes at the T12-L1 level 3 cm macuar rash is covered with Duoderm dressing because it was considered to be an ulcer..) Neurological: Reports: No Symptoms ED EXAM, SKIN/RASH Exam: See Below Text/Narrative:: Patient's back has moderate discomfort when she moves about. She is well- appearing lower back. She is hurt. But enjoys being engaged about her horseback riding as a child and a young woman. Exam Limited By: Other (She is mildly short of breath. If he walks a long time.) General Appearance: Alert, No Apparent Distress Eye Exam: Bilateral Eye: Normal Inspection Ears: Normal External Exam, Normal Canal, Normal TMs Nose: Normal Inspection Throat/Mouth: Normal Inspection, Normal Lips, Normal Teeth, Normal Gums, Normal Oropharynx, Normal Voice Head: Atraumatic, Normocephalic Neck: Normal Inspection, Supple, Other (Mild accessory muscle use respirations no carotid bruit) Respiratory/Chest: No Respiratory Distress, Chest Non-Tender, Rales (Low pitched sonorous rales rhonchi heard throughout her lungs.) Cardiovascular: Normal Peripheral Pulses, Regular Rate, Rhythm, No Edema, No Gallop, No JVD, No Murmur, No Rub Peripheral Pulses: 1+: Radial (L), Radial (R), Dorsalis Pedis (L), Dorsalis Pedis (R) GI/Abdominal: Normal Bowel Sounds, Soft, Non-Tender, No Organomegaly, No Distention, No Abnormal Bruit, No Mass (Female) Exam: Deferred Rectal (Female) Exam: Deferred Extremities: Normal Inspection, Normal Range of Motion, Non-Tender, No Pedal Edema Neurological: Alert, Oriented, Other (Mild decreased cognition, at one point she almost was in tears. And she said to me "I wished I could go horseback riding because I did so much of it when I was young. I love horseback riding." Pressure on the 3 cm area of the hemangioma results in marked pain. She has marked scoliosis. And his pain of the deep structures note the dermis.) Psychiatric: Other (When she lets her true feelings she has labile emotional affect) Skin: Warm, Dry, Intact, Normal Color, No Rash Location, Skin: Other (The left liver L1 to vertebral spine she has a 3 cm red nontender hemangioma has not raised and does not lashawn with pressure (is not purpura) .) Course - Vital Signs Last Recorded V/S: Last Vital Signs Temp 36.4 C 06/25/18 11:21 Pulse 86 06/25/18 11:21 Resp 16 06/25/18 11:21 BP 141/84 H 06/25/18 11:21 Pulse Ox 92 L 06/25/18 11:21 - Orders/Labs/Meds Orders: Active Orders 24 hr Category Date Time Status Lumbar Spine wo Cont [CT] Stat Exams 06/25/18 11:50 Taken Thoracic Spine wo Cont [CT] Stat Exams 06/25/18 11:51 Taken EKG 12 Lead [EK] Routine Ther 06/25/18 11:49 Ordered Labs: Laboratory Tests 06/25/18 06/25/18 06/25/18 Range/Units 11:50 11:50 11:50 WBC 9.6 (4.5-12.0) X10-3/uL RBC 3.93 (3.23-5.20) x10(6)uL Hgb 13.1 (11.5-15.5) g/dL Hct 38.8 (30.0-51.3) % MCV 98.7 H (80-96) fL MCH 33.4 (27.7-33.6) pg MCHC 33.8 (32.2-35.4) g/dL RDW 13.0 (11.5-15.5) % Plt Count 204 (125-369) X10(3)uL MPV 7.4 (7.4-10.4) fL Neut % (Auto) 73.4 (46-82) % Lymph % (Auto) 14.7 (13-37) % Hernando % (Auto) 9.4 (4-12) % Eos % (Auto) 2 (1.0-5.0) % Baso % (Auto) 1 (0-2) % Neut # (Auto) 7.1 (1.6-8.3) # Lymph # (Auto) 1.4 (0.6-5.0) # Hernando # (Auto) 0.9 (0.0-1.3) # Eos # (Auto) 0.2 (0.0-0.8) # Baso # (Auto) 0.0 (0.0-0.2) # Sodium 136 (135-145) mmol/L Potassium 3.9 (3.5-5.3) mmol/L Chloride 102 (100-110) mmol/L Carbon Dioxide 26 (21-32) mmol/L BUN 21 H (7-18) mg/dL Creatinine 1.2 H (0.55-1.02) mg/dL Est Cr Clr Drug Dosing TNP Estimated GFR (MDRD) 42 L (>60) BUN/Creatinine Ratio 17.5 (9-20) Glucose 137 H (80-116) mg/dL Lactic Acid (0.4-2.2) mmol/L Calcium 8.7 (8.6-10.2) mg/dL Total Bilirubin 0.4 (0.1-1.3) mg/dL AST 17 D (5-25) IU/L ALT 17 D (12-36) U/L Alkaline Phosphatase 72 (56-112) IU/L Troponin I < 0.017 L (<0.017-0.056) ng/mL Total Protein 7.3 (6.0-8.0) g/dL Albumin 2.6 L (2.9-4.5) g/dL Globulin 4.7 g/dL Albumin/Globulin Ratio 0.6 /15/19 Range/Units 11:50 WBC (4.5-12.0) X10-3/uL RBC (3.23-5.20) x10(6)uL Hgb (11.5-15.5) g/dL Hct (30.0-51.3) % MCV (80-96) fL MCH (27.7-33.6) pg MCHC (32.2-35.4) g/dL RDW (11.5-15.5) % Plt Count (125-369) X10(3)uL MPV (7.4-10.4) fL Neut % (Auto) (46-82) % Lymph % (Auto) (13-37) % Hernando % (Auto) (4-12) % Eos % (Auto) (1.0-5.0) % Baso % (Auto) (0-2) % Neut # (Auto) (1.6-8.3) # Lymph # (Auto) (0.6-5.0) # Hernando # (Auto) (0.0-1.3) # Eos # (Auto) (0.0-0.8) # Baso # (Auto) (0.0-0.2) # Sodium (135-145) mmol/L Potassium (3.5-5.3) mmol/L Chloride (100-110) mmol/L Carbon Dioxide (21-32) mmol/L BUN (7-18) mg/dL Creatinine (0.55-1.02) mg/dL Est Cr Clr Drug Dosing Estimated GFR (MDRD) (>60) BUN/Creatinine Ratio (9-20) Glucose (80-116) mg/dL Lactic Acid 1.6 (0.4-2.2) mmol/L Calcium (8.6-10.2) mg/dL Total Bilirubin (0.1-1.3) mg/dL AST (5-25) IU/L ALT (12-36) U/L Alkaline Phosphatase (56-112) IU/L Troponin I (<0.017-0.056) ng/mL Total Protein (6.0-8.0) g/dL Albumin (2.9-4.5) g/dL Globulin g/dL Albumin/Globulin Ratio Departure - Departure Time of Disposition: 13:25 (Patient's pain in her low back is secondary to the air in the disc space at T12-L1 which if form a new herniated disc. The pain that is not secondary to a presumed infection but is from the underlying T11- T12 disc changes. The daughters thought she had infection. She does not have infection of the skin. 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 There was no suggestion of a vascular pathology that affects the bones or lower back. The CAT scan demonstrated new air between the T11 level T12 disc spaces which revealed new degenerative disc changes of the disc. Our orthopedic surgeon is not available for a week. At this point no new intervention is planned except for patient will follow-up with Dr. Haile. And the family and the patient will need to discuss possibility of getting physical therapy and further rehabilitation therapy and/or a back brace to help diminish the discomfort in her back. I've encouraged her to get up as much as possible and to retain strength in her lower legs to avoid further deconditioning. she is to use a walker when she gets up walks.) Disposition: DC/Tfer to SNF 03 Condition: Fair Clinical Impression: Acute lumbar back pain Qualifiers: Back pain laterality: midline Sciatica presence: without sciatica Qualified Code(s): M54.5 - Low back pain Hypothyroidism Qualifiers: Hypothyroidism type: unspecified Qualified Code(s): E03.9 - Hypothyroidism, unspecified COPD (chronic obstructive pulmonary disease) Qualifiers: COPD type: COPD with acute lower respiratory infection Qualified Code(s): J44.0 - Chronic obstructive pulmonary disease with acute lower respiratory infection Hypertension Qualifiers: Hypertension type: essential hypertension Qualified Code(s): I10 - Essential ( primary) hypertension - Discharge Information *PRESCRIPTION DRUG MONITORING PROGRAM REVIEWED*: Not Applicable *COPY OF PRESCRIPTION DRUG MONITORING REPORT IN PATIENT LOUISA: Not Applicable Referrals: Juan Carlos Haile MD [Primary Care Provider] - Forms: ED Department Discharge Additional Instructions: She has pain at the upper lumbar level at the lower thoracic bones in her back secondary to the pain of a new herniated discs (T11-T12). New Air in the T12 T11 disc space She will get Tylenol 1000 mg ibuprofen 600 mg every 6 hours for pain. Follow-up with her doctor in 7-10 days. Inquire with her doctor regarding having physical therapy evaluate and treat with possible back brace. - My Orders Last 24 Hours: My Active Orders 06/25/18 11:49 EKG 12 Lead [EK] Routine 06/25/18 11:50 Lumbar Spine wo Cont [CT] Stat 06/25/18 11:51 Thoracic Spine wo Cont [CT] Stat - Assessment/Plan Last 24 Hours: My Active Orders 06/25/18 11:49 EKG 12 Lead [EK] Routine 06/25/18 11:50 Lumbar Spine wo Cont [CT] Stat 06/25/18 11:51 Thoracic Spine wo Cont [CT] Stat
--- NOTE | 2018-06-25 14:13 | CT ---
INDICATION: Severe reproducible pain at T40--rozumavabat onset of the pain. No history of trauma. LUMBOSACRAL SPINE CT: Spiral 2.5 mm axial sections were obtained through the lumbosacral spine with sagittal and coronal reconstructions and also reconstructions angled through the L3-4, L4-5 and L5-S1 disc spaces. Total DLP = 249.37 mGy-cm. Mild degree of spinal stenosis is noted at L3-4 with moderate spinal stenosis at L4-5 at both levels secondary to bulging disc and prominent ligamenta flava. Posterior apophyseal joint degenerative changes are noted to a mild degree L2-3 and moderate degree at L3-4, L4-5 and L5-S1. Vacuum disc phenomenon are noted at L3-4, L4-5 and L5-S1 with narrowing of the disc spaces. Hypertrophic degenerative changes of the vertebral bodies is relatively mild at those levels with some narrowing of the neural foramina at those levels due to the hypertrophic degenerative changes. A lesser degree of narrowing is seen L5-S1 neural foramina. Overall bone density is diminished compatible with osteoporosis. Minimal bulging disc is noted at L5-S1 as well as L3-4, L4-5. Bulging is more prominent however at L4-5 then at either of the above levels. Vertebral body heights were well maintained without an acute fracture or dislocation identified. A mild to moderate dextroconvex scoliosis of the lower lumbar spine is noted. Portion of the sacroiliac joints visualized appear to be intact. Heavy calcifications are noted in the aorta and iliac arteries. Just below the renal arteries there is an abdominal aorta aneurysm which measures approximately 36 to 37 mm transversely with possible maximum diameter approximately 46 mm obliquely and extending over a length of approximately 39 mm of the abdominal aorta. Calcifications are noted throughout the abdominal area and also in the adjacent renal arteries as well as the iliac arteries as mentioned above. IMPRESSION: 1. No definite acute fracture or dislocation 2. Abdominal aortic aneurysm infrarenal but just barely. 3. Scoliosis. 4. Degenerative changes and disc disease most notable at L3 through S1 with spinal stenosis most prominent at L4-5 and to a lesser extent L3-4. 5. Dextroconvex scoliosis lower lumbar spine. 6. Diminished bone density compatible with osteoporosis. Report called to Dr. Meng at 1308 hours. [facility]
== END 2018-06-25 14:00 ==
LOC: FB.ED 11:21
DX: M54.5 Low back pain (principal); J44.0 Chronic obstructive pulmonary disease with (acute) lower respiratory infection; I11.0 Hypertensive heart disease with heart failure; I50.9 Heart failure, unspecified; E03.9 Hypothyroidism, unspecified; I25.10 Atherosclerotic heart disease of native coronary artery without angina pectoris; I25.2 Old myocardial infarction; F03.90 Unspecified dementia, unspecified severity, without behavioral disturbance, psychotic disturbance, mood disturbance, and anxiety; Z87.01 Personal history of pneumonia (recurrent); Z95.5 Presence of coronary angioplasty implant and graft
CPT/HCPCS: 36415; 72128; 72131; 80053; 83605; 84484; 85025; 93005; 93010; 99284

== ENCOUNTER 2018-11-17 19:15 | Emergency (ER) | payer MEDICARE ==
--- NOTE | 2018-11-17 19:29 | EDM.PDOC ---
ED HPI GENERAL MEDICAL PROBLEM - General Chief Complaint: Respiratory Problem Stated Complaint: SOB Time Seen by Provider: 11/17/18 19:20 Source of Information: Reports: Patient, Other (NH) History Limitations: Reports: Altered Mental Status, Physical Impairment - History of Present Illness INITIAL COMMENTS - FREE TEXT/NARRATIVE: 88 y.o.w.f with a h/o dementia, [place] due to SOB and cough. Pt is not able to give a HPI, family arrived later. Pt coughed out a large amount of greenish material and felt better then. BP 108/70 RR 33 Pulse ox 84 on 15 l O 2 by NC, Temp 36.8 Onset Date: 11/17/18 Onset Time: 07:00 Duration: Hour(s):, Intermittent, Waxing/Waning Location: Reports: Chest Quality: Reports: Dull Severity: Moderate Improves with: Reports: None Worsens with: Reports: None Associated Symptoms: Reports: Confusion, Cough, Loss of Appetite - Related Data Allergies Allergy/AdvReac Type Severity Reaction Status Date / Time Sulfa (Sulfonamide Allergy Other Verified 11/17/18 19:29 Antibiotics) Home Meds: Home Meds Latanoprost [Xalatan 0.005% Ophth Soln] 1 drop EYEBOTH BEDTIME 07/26/17 [History ] Loratadine 10 mg PO 08 07/26/17 [History] Raloxifene HCl 60 mg PO 08 07/26/17 [History] Polyvinyl Alcohol/Povidone/Pf [Refresh Classic Eye Drops] 1 drop EYEBOTH BID [History] Nitroglycerin 0.4 mg SL Q5M PRN #90 tab.subl 07/31/17 [Rx] Fluticasone Propionate [Flonase] 1 spray NASBOTH BID 10/11/17 [History] Acetaminophen [Tylenol] 650 mg PO Q4H PRN tablet 10/17/17 [Rx] Magnesium Hydroxide [Milk of Magnesia] 30 ml PO DAILY PRN cup 10/17/17 [Rx] .Robitussin 10 ml PO Q4H PRN 11/17/18 [History] Acetaminophen 1,000 mg PO Q6H PRN 11/17/18 [History] Albuterol [Ventolin HFA] 2 puff INH Q4H PRN 11/17/18 [History] Bisacodyl [Dulcolax] 10 mg RC Q3D PRN 11/17/18 [History] Eucalyptus/Menthol [Cough Drops] 1 each PO ASDIRECTED PRN 11/17/18 [History] Hydrocortisone [Anusol-HC] 30 gm RC BID PRN 11/17/18 [History] Ibuprofen [Motrin] 600 mg PO Q6H PRN 11/17/18 [History] Levothyroxine [Synthroid] 75 mcg PO ACBREAKFAST 11/17/18 [History] Loperamide HCl [Loperamide] 2 mg PO ASDIRECTED PRN 11/17/18 [History] Trolamine Salicylate/Aloe Vera [Aspercreme 10% Cream] 1 applic TP DAILY PRN 02/27 [History] Umeclidinium Brm/Vilanterol Tr [Anoro Ellipta 62.5-25 MCG] 1 each IH DAILY 11/17 [History] levoFLOXacin [Levaquin] 250 mg PO DAILY #10 tab 11/17/18 [Rx] levoFLOXacin [Levaquin] 250 mg PO DAILY #10 tab 11/17/18 [Rx] Past Medical History HEENT History: Reports: Glaucoma, Impaired Vision Other HEENT History: dry eyes Cardiovascular History: Reports: Angina, CAD, VA, SOB on Exertion, Syncope Other Cardiovascular History: ? 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: Psychiatric History: Reports: Addiction, Anxiety, Dementia, Depression Endocrine/Metabolic History: Reports: Hypothyroidism - Infectious Disease History Infectious Disease History: Reports: Chicken Pox - Past Surgical History Cardiovascular Surgical History: Reports: Coronary Artery Stent, Percutaneous Transluminal Angioplasty Musculoskeletal Surgical History: Reports: Other (See Below) Other Musculoskeletal Surgeries/Procedures:: Left foot surgery Social & Family History - Family History Family Medical History: Unobtainable - Caffeine Use Caffeine Use: Reports: Coffee Other Caffeine Use: Pot of coffe per day ED ROS GENERAL - Review of Systems Review Of Systems: Unable To Obtain (Dementia) ED EXAM, GENERAL - Physical Exam Exam: See Below Exam Limited By: Altered Mental Status General Appearance: Alert, WD/WN, Moderate Distress Eye Exam: Bilateral Eye: Normal Inspection Ears: Normal External Exam Ear Exam: Bilateral Ear: Auricle Normal Nose: Normal Inspection, Normal Mucosa Throat/Mouth: Normal Lips, Normal Voice, No Airway Compromise, Other (poor dentition, dry mouth) Head: Atraumatic, Normocephalic Neck: Normal Inspection, Supple, Non-Tender, Full Range of Motion Respiratory/Chest: Respiratory Distress, Rhonchi Cardiovascular: Normal Peripheral Pulses, Regular Rate, Rhythm Peripheral Pulses: 2+: Brachial (L) GI/Abdominal: Normal Bowel Sounds, Soft, Non-Tender, No Organomegaly, No Mass, Pelvis Stable (Female) Exam: Deferred Rectal (Female) Exam: Deferred Back Exam: Normal Inspection, Full Range of Motion Extremities: Normal Inspection, Normal Range of Motion Neurological: Alert, CN II-XII Intact, Abnormal Gait (unable to ambulae) Psychiatric: Depressed Mood Skin Exam: Warm, Dry, Intact, Normal Color, No Rash Lymphatic: No Adenopathy Course - Vital Signs Text/Narrative:: 88 y.o.w.f with a h/o dementia, [place] the [place] due to SOB and cough. Pt is not able to give a HPI, family arrived later. Pt coughed out a large amount of greenish material and felt better then. BP 108/70 RR 33 Pulse ox 84 on 15 l O 2 by NC, Temp 36.8 PE: 88 y.o.w.f in resp. distress Imaging: CXR: Bilateral pneumonia. mild CHF, official report is pending Labs: CBC: 12,3 with left shift, BMP pos for: BUN 40 Cr 1.0 GFR 25 BNP 2111 UA neg for UTI Impression: Bilat Pneumonia, Dehydration, Dementia Tx: Duoneb, Abx. Pt took po fluids well Reexam: Improved. Pt was on 2 liters O2 with a pulse ox of 94% Plan: D/C with instructions Last Recorded V/S: Last Vital Signs Temp 36.8 C 11/17/18 19:20 Pulse 101 H 11/17/18 21:40 Resp 28 H 11/17/18 21:40 BP 92/57 L 11/17/18 21:40 Pulse Ox 96 11/17/18 21:40 - Orders/Labs/Meds Orders: Active Orders 24 hr Category Date Time Status EKG Documentation Completion [RC] ASDIRECTED Care 11/17/18 19:46 Active Oxygen Therapy, ED [RC] ASDIRECTED Care 06/09/19 19:15 Active RT Aerosol Therapy [RC] ASDIRECTED Care 11/17/18 19:35 Active Chest 1V Frontal [CR] Stat Exams 11/17/18 19:29 Taken EKG 12 Lead [EK] Urgent Ther 11/17/18 19:46 Ordered Labs: Laboratory Tests 11/17/18 11/17/18 11/17/18 Range/Units 19:40 19:40 19:40 WBC 12.3 H (4.5-12.0) X10-3/uL RBC 4.14 (3.23-5.20) x10(6)uL Hgb 13.3 (11.5-15.5) g/dL Hct 41.0 (30.0-51.3) % MCV 98.9 H (80-96) fL MCH 32.1 (27.7-33.6) pg MCHC 32.5 (32.2-35.4) g/dL RDW 13.0 (11.5-15.5) % Plt Count 169 (125-369) X10(3)uL MPV 8.1 (7.4-10.4) fL Add Manual Diff Yes Neutrophils % (Manual) 87 H (46-82) % Band Neutrophils % 3 (0-6) % Lymphocytes % (Manual) 6 L (13-37) % Monocytes % (Manual) 4 (4-12) % PT 11.8 H (8.7-11.1) INR 1.22 H (0.89-1.13) Sodium 140 (135-145) mmol/L Potassium 4.3 (3.5-5.3) mmol/L Chloride 105 (100-110) mmol/L Carbon Dioxide 22 (21-32) mmol/L BUN 40 H D (7-18) mg/dL Creatinine 1.9 H (0.55-1.02) mg/dL Est Cr Clr Drug Dosing TNP Estimated GFR (MDRD) 25 L (>60) BUN/Creatinine Ratio 21.1 H (9-20) Glucose 204 H D (80-116) mg/dL Lactic Acid (0.4-2.2) mmol/L Calcium 10.0 (8.6-10.2) mg/dL NT-Pro-B Natriuret Pep (<=450) pg/mL Urine Color (YELLOW) Urine Appearance (CLEAR) Urine pH (5.0-6.5) Ur Specific Mccoll (1.010-1.025) Urine Protein (NEGATIVE) mg/dL Urine Glucose (UA) (NORMAL) mg/dL Urine Ketones (NEGATIVE) mg/dL Urine Occult Blood (NEGATIVE) Urine Nitrite (NEGATIVE) Urine Bilirubin (NEGATIVE) Urine Urobilinogen (NEGATIVE) mg/dL Ur Leukocyte Esterase (NEGATIVE) Urine RBC (0-5) Urine WBC (0-5) Ur Squamous Epith Cells (NS,R,O) Urine Bacteria (NS) 11/17/18 11/17/18 11/17/18 Range/Units 19:40 19:40 19:46 WBC (4.5-12.0) X10-3/uL RBC (3.23-5.20) x10(6)uL Hgb (11.5-15.5) g/dL Hct (30.0-51.3) % MCV (80-96) fL MCH (27.7-33.6) pg MCHC (32.2-35.4) g/dL RDW (11.5-15.5) % Plt Count (125-369) X10(3)uL MPV (7.4-10.4) fL Add Manual Diff Neutrophils % (Manual) (46-82) % Band Neutrophils % (0-6) % Lymphocytes % (Manual) (13-37) % Monocytes % (Manual) (4-12) % PT (8.7-11.1) INR (0.89-1.13) Sodium (135-145) mmol/L Potassium (3.5-5.3) mmol/L Chloride (100-110) mmol/L Carbon Dioxide (21-32) mmol/L BUN (7-18) mg/dL Creatinine (0.55-1.02) mg/dL Est Cr Clr Drug Dosing Estimated GFR (MDRD) (>60) BUN/Creatinine Ratio (9-20) Glucose (80-116) mg/dL Lactic Acid 4.7 H (0.4-2.2) mmol/L Calcium (8.6-10.2) mg/dL NT-Pro-B Natriuret Pep 2111 H* (<=450) pg/mL Urine Color Yellow (YELLOW) Urine Appearance Clear (CLEAR) Urine pH 5.0 (5.0-6.5) Ur Specific Mccoll 1.020 (1.010-1.025) Urine Protein Trace (NEGATIVE) mg/dL Urine Glucose (UA) Normal (NORMAL) mg/dL Urine Ketones Negative (NEGATIVE) mg/dL Urine Occult Blood Negative (NEGATIVE) Urine Nitrite Negative (NEGATIVE) Urine Bilirubin Small H (NEGATIVE) Urine Urobilinogen 1 H (NEGATIVE) mg/dL Ur Leukocyte Esterase Negative (NEGATIVE) Urine RBC Not seen (0-5) Urine WBC 0-5 (0-5) Ur Squamous Epith Cells Rare (NS,R,O) Urine Bacteria Moderate H (NS) Meds: Medications Discontinued Medications Generic Name Dose Route Start Last Admin Trade Name Freq PRN Reason Stop Dose Admin Albuterol/Ipratropium 3 ml 11/17/18 19:35 11/17/18 19:15 Duoneb 3.0-0.5 Mg/3 Ml NEB 11/17/18 19:36 3 ml ONETIME ONE Administration Levofloxacin 500 mg 11/17/18 21:01 11/17/18 21:03 Levaquin PO 11/17/18 21:02 Not Given ONETIME ONE Levofloxacin 250 mg 11/17/18 21:03 11/17/18 21:13 Levaquin PO 11/17/18 21:04 250 mg ONETIME ONE Administration Departure - Departure Time of Disposition: 21:35 Disposition: Home, Self-Care 01 Condition: Good Clinical Impression: Pneumonia, Dehydration, COPD exacerbation, On home O2 - Discharge Information Prescriptions: levoFLOXacin [Levaquin] 250 mg PO DAILY #10 tab levoFLOXacin [Levaquin] 250 mg PO DAILY #10 tab Referrals: Aminta Swartz NP [Primary Care Provider] - Forms: ED Department Discharge Additional Instructions: Please take the meds as recommended, please f/u with your PMD with come back if your symptoms get worse acutely - My Orders Last 24 Hours: My Active Orders 11/17/18 19:15 Oxygen Therapy, ED [RC] ASDIRECTED 11/17/18 19:29 Chest 1V Frontal [CR] Stat 11/17/18 19:35 RT Aerosol Therapy [RC] ASDIRECTED 11/17/18 19:46 EKG Documentation Completion [RC] ASDIRECTED EKG 12 Lead [EK] Urgent - Assessment/Plan Last 24 Hours: My Active Orders 11/17/18 19:15 Oxygen Therapy, ED [RC] ASDIRECTED 11/17/18 19:29 Chest 1V Frontal [CR] Stat 11/17/18 19:35 RT Aerosol Therapy [RC] ASDIRECTED 11/17/18 19:46 EKG Documentation Completion [RC] ASDIRECTED EKG 12 Lead [EK] Urgent
[2018-11-17] MEDS ORDERED: Albuterol/Ipratropium 3.0-0.5 MG/3 ML Neb Soln NEB ONE (19:35)
[2018-11-17] MEDS ORDERED: Levofloxacin 500 MG Tab PO ONE (21:01)
[2018-11-17] MEDS ORDERED: Levofloxacin 250 MG Tab PO ONE (21:03)
== END 2018-11-17 21:52 | disposition home or self-care (01) ==
LOC: FB.ED 19:20
DX: J18.9 Pneumonia, unspecified organism (principal); E86.0 Dehydration; F03.90 Unspecified dementia, unspecified severity, without behavioral disturbance, psychotic disturbance, mood disturbance, and anxiety; I25.10 Atherosclerotic heart disease of native coronary artery without angina pectoris; I25.2 Old myocardial infarction; E03.9 Hypothyroidism, unspecified; Z88.2 Allergy status to sulfonamides; Z79.899 Other long term (current) drug therapy; J44.1 Chronic obstructive pulmonary disease with (acute) exacerbation; Z99.81 Dependence on supplemental oxygen
CPT/HCPCS: 36415; 71045; 80048; 81001; 83605; 83880; 85025; 85610; 93005; 94640; 99285; A9270; J7620-GY